=== PATIENT | female | born 1945 | race Caucasian/White ===

== ENCOUNTER 2016-06-30 11:39 | Emergency (ER) | payer MEDICARE, OTHER ==
[2016-06-30 11:52] VITALS: BP 154/67
--- NOTE | 2016-06-30 12:22 | UC ---
IChris,Jayna, scribed for Guzman Mary MD on 06/30/16 at 1221 . Respiratory Complaint HPI - HPI Summary HPI Summary: This 71 y/o female presents to [facility] with chief complaint of persistent cough since a week ago. She also reports post nasal drip, increased tiredness, sinus discomfort/congestion, and acute on chronic SOB. PMHx is significant for COPD with home oxygen use and chronic bronchitis. She is a former smoker. FHx is positive for DM. Pt is allergic to cefaclor. - History of Current Complaint Chief Complaint: UCRespiratory Stated Complaint: COUGH SINUS ISSUE SOB ON O2 COPD Time Seen by Provider: 06/30/16 12:03 Hx Obtained From: Patient Onset/Duration: Gradual Onset Severity Initially: Mild Severity Currently: Moderate Character: Cough: Productive Aggravating Factors: Nothing Alleviating Factors: Nothing Associated Signs And Symptoms: Positive: Dyspnea, URI - Allergies/Home Medications Allergies/Adverse Reactions: Allergies Allergy/AdvReac Type Severity Reaction Status Date / Time Cefaclor [From [facility]] Allergy Severe Hives Verified 06/30/16 11:52 PMH/Surg Hx/FS Hx/Imm Hx Endocrine History Of: Denies: Diabetes Cardiovascular History Of: Denies: Hypertension, Pacemaker/ICD Respiratory History Of: Reports: COPD, Asthma, Bronchitis GI/ History Of: Denies: Renal Disease Cancer History Of: Denies: Breast Cancer - Surgical History Surgical History: Yes Surgery Procedure, Year, and Place: CHOLECYSTECTOMY, X3. bx left mormon artery WITH CLIP - Family History Known Family History: Positive: Diabetes - Social History Alcohol Use: Rare Substance Use Type: None Smoking Status (MU): Former Smoker Type: Cigarettes Amount Used/How Often: 1 ppd Length of Time of Smoking/Using Tobacco: 45 yrs Have You Smoked in the Last Year: No When Did the Patient Quit Smoking/Using Tobacco: 2011 - Immunization History Most Recent Influenza Vaccination: 05/25 Review of Systems Constitutional: Negative Skin: Negative ENT: Other - post nasal drip Respiratory: Shortness Of Breath - acute on chronic, Cough Cardiovascular: Negative Gastrointestinal: Negative Genitourinary: Negative Motor: Negative Neurovascular: Negative Musculoskeletal: Negative Neurological: Negative Psychological: Negative All Other Systems Reviewed And Are Negative: Yes Physical Exam Triage Information Reviewed: Yes Appearance: Ill-Appearing, Obese Vital Signs: Initial Vital Signs Temp 99 F 06/30/16 11:45 Pulse 70 06/30/16 11:45 Resp 18 06/30/16 11:45 BP 154/67 06/30/16 11:45 Pulse Ox 96 06/30/16 11:45 Vital Signs Reviewed: Yes Eye Exam: Normal Eyes: Positive: Conjunctiva Clear ENT: Positive: Normal ENT inspection, Hearing grossly normal, Pharynx normal, Nasal congestion, Nasal drainage, TMs normal Neck exam: Normal Neck: Positive: Supple, Nontender, No Lymphadenopathy Respiratory: Positive: Chest non-tender, Respiratory distress, Decreased breath sounds. Negative: Crackles, Rhonchi, Stridor, Wheezing Cardiovascular: Positive: RRR, No Murmur, Pulses Normal Skin Exam: Normal UC Diagnostic Evaluation - Laboratory O2 Sat by Pulse Oximetry: 96 Respiratory Course/Dx - Differential Dx/Diagnosis Provider Diagnoses: bronchitis. copd Discharge - Discharge Plan Condition: Stable Disposition: HOME Prescriptions: DOXYcycline CAP(*) [DOXYcycline 100MG CAP(*)] 100 mg PO BID #20 cap predniSONE TAB* [Deltasone TAB*] 40 mg PO DAILY #10 tab Patient Education Materials: Acute Bronchitis (ED) Referrals: Tesha Dodson MD [Primary Care Provider] - 5 Days The documentation as recorded by the Chris fernandez Soohyun accurately reflects the service I personally performed and the decisions made by Tyra davis Hossein, MD.
== END 2016-06-30 12:15 | disposition home or self-care (01) ==
LOC: UCEAST 11:39
DX: J44.0 Chronic obstructive pulmonary disease with (acute) lower respiratory infection (principal); J20.9 Acute bronchitis, unspecified; J45.909 Unspecified asthma, uncomplicated; Z87.891 Personal history of nicotine dependence; Z99.81 Dependence on supplemental oxygen
CPT/HCPCS: 99212; G0463

== ENCOUNTER 2016-07-04 07:50 | Emergency (ER) | payer MEDICARE, OTHER ==
[2016-07-04 08:00] VITALS: BP 140/63
--- NOTE | 2016-07-04 08:15 | UC ---
Complaint Female HPI - HPI Summary HPI Summary: complaint of pain with urination that started 2 days ago increase in urgency and frequency has had some incontinence several times denies fever , abdominal pain, back pain drinking cranberry juice and fluids recently dx with bronchitis 06/30/16 and started on doxycycline and predisone and she feels that her breathing is better - History Of Current Complaint Chief Complaint: UCGU Stated Complaint: UTI COMPLAINT Time Seen by Provider: 07/04/16 08:06 Hx Obtained From: Patient Onset/Duration: Gradual Onset, Lasting Days, Still Present - Allergies/Home Medications Allergies/Adverse Reactions: Allergies Allergy/AdvReac Type Severity Reaction Status Date / Time Cefaclor [From [facility]] Allergy Severe Hives Verified 07/04/16 08:01 PMH/Surg Hx/FS Hx/Imm Hx Previously Healthy: No - COPD excerbation Endocrine History Of: Denies: Diabetes Cardiovascular History Of: Denies: Hypertension, Pacemaker/ICD Respiratory History Of: Reports: COPD, Asthma, Bronchitis GI/ History Of: Denies: Renal Disease Cancer History Of: Denies: Breast Cancer - Surgical History Surgical History: Yes Surgery Procedure, Year, and Place: CHOLECYSTECTOMY, X3. bx left faith artery WITH CLIP - Family History Known Family History: Positive: None, Diabetes Negative: Cardiac Disease, Hypertension - Social History Occupation: Retired Lives: With Family Alcohol Use: Rare Substance Use Type: None Smoking Status (MU): Former Smoker Type: Cigarettes Amount Used/How Often: 1 ppd Length of Time of Smoking/Using Tobacco: 45 yrs Have You Smoked in the Last Year: No When Did the Patient Quit Smoking/Using Tobacco: 2011 - Immunization History Most Recent Influenza Vaccination: 05/25 Review of Systems Constitutional: Negative Skin: Negative Eyes: Negative ENT: Negative Respiratory: Shortness Of Breath - on exertion Cardiovascular: Negative Gastrointestinal: Negative Genitourinary: Frequency, Urgency Motor: Negative Neurovascular: Negative Musculoskeletal: Negative Neurological: Negative Psychological: Negative All Other Systems Reviewed And Are Negative: Yes Physical Exam Triage Information Reviewed: Yes Appearance: No Pain Distress, Well-Nourished, Obese Vital Signs: Initial Vital Signs Temp 97.9 F 07/04/16 07:56 Pulse 63 07/04/16 07:56 Resp 22 07/04/16 07:56 BP 140/63 07/04/16 07:56 Pulse Ox 97 07/04/16 07:56 Vital Signs Reviewed: Yes Eyes: Positive: Conjunctiva Clear ENT: Positive: Normal ENT inspection Neck: Positive: Supple, No Lymphadenopathy Respiratory: Positive: Decreased breath sounds - in the bases ,, Wheezing - wheezing in other [place] Cardiovascular: Positive: RRR, No Murmur, Pulses Normal Abdomen Description: Positive: Nontender, Soft, Distended - softly. Negative: CVA Tenderness (R), CVA Tenderness (L) Bowel Sounds: Positive: Present Musculoskeletal: Positive: No Edema Neurological: Positive: Alert Psychological Exam: Normal Skin Exam: Normal Complaint Female Dx - Course Course Of Treatment: exam completed. currently on doxycycline for COPD exacerbation and condition is stable. will start pyridium and change antibiotic to levaquin fortreatment of COPD exacerbation and UTI. black box warning- pt has been on levaquin many times in the past will rx d/t need for treatment for both conditions. followup with PCP - Differential Dx/Diagnosis Differential Diagnosis/HQI/PQRI: Ureteral Stone, Urinary Tract Infection Provider Diagnoses: UTI, Chronic bronchitis Discharge - Discharge Plan Condition: Stable Disposition: HOME Prescriptions: Levofloxacin TAB* [Levaquin TAB*] 750 mg PO DAILY #5 tab Phenazopyridine TAB* [Pyridium TAB*] 100 mg PO TID #9 tab Patient Education Materials: Chronic Bronchitis (ED), Urinary Tract Infection in Women (ED) Referrals: Tesha Dodson MD [Primary Care Provider] - Additional Instructions: Please stop doxycylcine and start levaquin as directed. take pyridium as needed Increase fluids and rest Take acetaminophen for fever or pain Please review your discharge instructions. If your symptoms do not improve please call your primary care provider or return to urgent care.
== END 2016-07-04 08:51 | disposition home or self-care (01) ==
LOC: UCEAST 07:50
DX: N39.0 Urinary tract infection, site not specified (principal); J42 Unspecified chronic bronchitis; E66.9 Obesity, unspecified; Z87.891 Personal history of nicotine dependence; Z88.1 Allergy status to other antibiotic agents
CPT/HCPCS: 81002; 87086; 99212; G0463

== ENCOUNTER 2016-10-07 09:18 | Emergency (ER) | payer MEDICARE, OTHER ==
[2016-10-07 09:39] VITALS: BP 121/48
--- NOTE | 2016-10-07 11:43 | UC ---
Tal Whitfield Adam, scribed for Cinthia Ellis DO on 10/07/16 at 0936 . Abdominal Pain Female HPI - HPI Summary HPI Summary: Pt is a 71 year old female presenting with intermittent abdominal pain that set on yesterday in the early afternoon. She states that the pain is located in her suprapubic region and she is also having separate sharp pain in her RLQ. She has a hx of diverticulitis which usually causes pain in her suprapubic region at baseline that is exacerbated by having BM's. She states that the current pain in her suprapubic region is similar to the usual pain from her diverticulitis but the sharp RLQ pain is new and intermittantly more severe. The pain has been intermittent. It was 10/10 at its worst. She reports that it averages at a 4-5/10. She denies any fever, chills, blood in stool, new urinary symptoms, MURRAY, rashes. PMHx of chronic bronchitis, emphysema. She denies any other PMHx. She is a former smoker. FMHx of DM (father and brother). - History of Current Complaint Chief Complaint: UCAbdominalPain Stated Complaint: LOWER ABD PAIN PT ON O2 Time Seen by Provider: 10/07/16 09:33 Hx Obtained From: Patient Onset/Duration: Gradual Onset, Lasting Days, Still Present Timing: Intermittent Episodes Lasting: - Minutes - hours Severity Initially: Moderate Severity Currently: None Pain Scale Used: 0-10 Numeric Location: Discrete At: RLQ, Suprapubic Radiates: No Character: Sharp Aggravating Factor(s): Other: - BM's Alleviating Factor(s): Nothing Associated Signs and Symptoms: Positive: Negative, Diarrhea - intermittant at baseline. Negative: Fever, Blood in Stool, Urinary Symptoms - no new ones, Nausea, Vomiting Allergies/Adverse Reactions: Allergies Allergy/AdvReac Type Severity Reaction Status Date / Time Cefaclor [From [facility]] Allergy Severe Hives Verified 07/04/16 08:01 Home Medications: Home Medications Escitalopram (NF) [Lexapro (NF)] 10 mg PO DAILY 10/07/16 [History Confirmed ] PMH/Surg Hx/FS Hx/Imm Hx Endocrine History Of: Denies: Diabetes Cardiovascular History Of: Denies: Hypertension, Pacemaker/ICD Respiratory History Of: Reports: COPD, Asthma, Bronchitis GI/ History Of: Reports: Diverticulitis Denies: Renal Disease Cancer History Of: Denies: Breast Cancer - Surgical History Surgical History: Yes Surgery Procedure, Year, and Place: CHOLECYSTECTOMY, X3. bx left protestant artery WITH CLIP - Family History Known Family History: Positive: Diabetes - Father and brother Negative: Cardiac Disease, Hypertension - Social History Occupation: Unemployed - Homemaker Lives: With Family - Alcohol Use: Rare Substance Use Type: None Smoking Status (MU): Former Smoker Type: Cigarettes Amount Used/How Often: 1 ppd Length of Time of Smoking/Using Tobacco: 45 yrs Have You Smoked in the Last Year: No When Did the Patient Quit Smoking/Using Tobacco: 2011 - Immunization History Most Recent Influenza Vaccination: 05/25 Review of Systems Constitutional: Negative, Other - Hot flash Respiratory: Shortness Of Breath - baseline - copd Cardiovascular: Negative Gastrointestinal: Abdominal Pain Neurological: Negative All Other Systems Reviewed And Are Negative: Yes Physical Exam Triage Information Reviewed: Yes Appearance: Well-Appearing, No Pain Distress, Obese, Other: - on continuous o2 Vital Signs: Initial Vital Signs Temp 98.2 F 10/07/16 09:31 Pulse 80 10/07/16 09:31 Resp 20 10/07/16 09:31 BP 121/48 10/07/16 09:31 Pulse Ox 96 10/07/16 09:31 Vital Signs Reviewed: Yes Eyes: Positive: Conjunctiva Clear. Negative: Discharge ENT: Positive: Hearing grossly normal. Negative: Muffled/hoarse voice Neck exam: Normal Neck: Positive: Supple Respiratory: Positive: Chest non-tender, Lungs clear, Normal breath sounds, No respiratory distress Cardiovascular: Positive: RRR, No Murmur Abdomen Description: Positive: Soft, McBur[place]'s Point Tenderness. Negative: Nontender, CVA Tenderness (R), CVA Tenderness (L), Distended Bowel Sounds: Positive: Present Musculoskeletal Exam: Normal Neurological: Positive: Alert, Muscle Tone Normal Psychological Exam: Normal Psychological: Positive: Age Appropriate Behavior Skin Exam: Normal Skin: Positive: Other - Warm, dry, normal color Abd Pain Female Course/Dx - Differential Dx/Diagnosis Differential Diagnosis: Appendicitis, Diverticulitis, Irritable Bowel Syndrome, Urinary Tract Infection Provider Diagnoses: abd pain - r/o appy Discharge - Discharge Plan Condition: Stable Disposition: TRANS HIGHER LVL OF CARE FAC Referrals: Tesha Dodson MD [Primary Care Provider] - Lab Results - Lab Results Lab Results: 10/07/16 09:35 POC Urine Color Yellow POC Urine Clarity Clear POC Urine pH 7.0 POC Ur Specif [place] 1.010 POC Urine Protein Negative POC Ur Glucose (UA) Negative POC Urine Ketones Negative POC Urine Blood Trace-intact H POC Urine Nitrite Negative POC Urine Bilirubin Negative POC Urine Urobilinogen 0.2 POC U Leukocyte Esteras Negative The documentation as recorded by the Tal fernandez Adam accurately reflects the service I personally performed and the decisions made by , Cinthia Ellis DO.
== END 2016-10-07 11:06 | disposition short-term general hospital (02) ==
LOC: UCEAST 09:18
DX: R10.31 Right lower quadrant pain (principal); Z90.49 Acquired absence of other specified parts of digestive tract; Z88.1 Allergy status to other antibiotic agents; Z87.891 Personal history of nicotine dependence
CPT/HCPCS: 81003; 99212; G0463

== ENCOUNTER 2016-10-07 12:21 | Emergency (ER) | payer MEDICARE, OTHER ==
[2016-10-07 12:25] VITALS: BP 146/59
[2016-10-07] MEDS ORDERED: NS 0.9% 1000 ML* 2,000 ML IV ONE (13:30)
[2016-10-07 13:50] LABS: Hematocrit 42 % (35-47); Hemoglobin 13.6 g/dl (12.0-16.0); Mean Corpuscular HGB Conc 33 g/dl (31-36); Mean Corpuscular Hemoglobin 28 pg (27-31); Mean Corpuscular Volume 86 fL (80-97); Mean Platelet Volume 8 um3 (7.4-10.4); Red Blood Count 4.81 10^6/ul (4.0-5.4); Red Cell Distribution Width 14 % (10.5-15); White Blood Count 8.5 10^3/ul (3.5-10.8)
[2016-10-07 14:01] LABS: Albumin 3.8 g/dL (3.2-5.2); BUN/Creatinine Ratio 21.7 (8-20); C Reactive Protein 22.62 mg/L (< 5.00); Calcium 9.5 mg/dL (8.6-10.3); EGFR African American 108.5 (>60); EGFR Non-African American 84.4 (>60); Globulin 3.6 g/dL (2-4); Potassium 4.1 mmol/L (3.5-5.0); Total Bilirubin 0.6 mg/dL (0.2-1.0); Total Protein 7.4 g/dL (6.4-8.9)
[2016-10-07] MEDS ORDERED: Iohexol 300* (CONTRAST) 10 ML SDV IV ONE (14:45)
--- NOTE | 2016-10-07 16:05 | RAD ---
INDICATION: RIGHT lower quadrant and transverse colon region pain. History of diverticulitis. Post cholecystectomy. COMPARISON: April 28, 2016 CT. TECHNIQUE: Multidetector CT images were obtained from the lung bases to the ischial tuberosities with 129 mL Omnipaque 300 IV and oral contrast. Multiplanar reformation. REPORT: Mild cardiomegaly. Mild bibasilar subsegmental atelectasis. Decreased density of the liver consistent with fatty infiltration. No focal hepatic lesions or biliary dilatation. The gallbladder is not visualized. Unremarkable pancreas and spleen. Unremarkable upper GI, small bowel, and diminutive retrocecal appendix. Severe diverticulosis of the sigmoid colon with associated mild perienteric inflammatory stranding at the distal segment. Small volume of nonloculated free pelvic fluid. No perienteric abscess or extra enteric gas evident. Normal adrenal glands. Unremarkable kidneys with symmetric nephrograms and pyelograms. Unremarkable ureters and largely decompressed urinary bladder as well as the anteverted uterus and adnexal regions. Negative for lymphadenopathy. Normal diameter abdominal aorta and iliac arteries with calcific plaque. Physiologic distention of the IVC. Negative for fracture or suspicious osseous lesion of the lumbar sacral spine, pelvis, or proximal femurs. IMPRESSION: Mild acute sigmoid diverticulitis. No perienteric abscess or resulting bowel obstruction. The magnitude of perienteric inflammatory change is similar to the April 28, 2016 exam although it appears to involve a more proximal segment of the sigmoid colon compared with the prior exam.
[2016-10-07 16:07] LABS: Urine Bacteria 1+ (Absent); Urine Bilirubin Negative (Negative); Urine Glucose Negative (Negative); Urine Nitrite Negative (Negative)
[2016-10-07] MEDS ORDERED: Ciprofloxacin TAB* 500 MG PO ONE ×2 (16:36→16:38)
[2016-10-07] MEDS ORDERED: metroNIDAZOLE TAB* 250 MG PO ONE ×2 (16:38→16:39)
--- NOTE | 2016-10-07 20:53 | ED ---
I, Oh,Soohlilly, scribed for Richard Leal MD on 10/07/16 at 1353 . Abdominal Pain/Female - HPI Summary HPI Summary: This 71 y/o female presents [facility] ED from [facility] for sudden onset of sharp RLQ/right suprapubic pain since last evening. Pt drove herself from convenient care, and states that bumpy ride did make pain mildly worse. Negative dysuria, increased urinary frequency, nausea, or fever/chills. Last BM yesterday morning. PMHx includes diverticulitis, COPD, and UTI. Last diverticulitis flare up was 1.5 months ago and was treate with abx. PSHx includes cholecystectomy, 3x C-sections, and tubal ligation. No hysterectomy or oophorectomy. Unknown if she still has appendix. - History of Current Complaint Chief Complaint: EDAbdPain Stated Complaint: LOWER ABD PAIN COMMING FROM [facility] Hx Obtained From: Patient, Medical Records ?: No Onset/Duration: Gradual Onset Pain Intensity: 0 Pain Scale Used: 0-10 Numeric Location: Discrete At: RLQ, Suprapubic - right Radiates: No Character: Sharp Aggravating Factor(s): Other: - bumpy car ride Alleviating Factor(s): Nothing Associated Signs and Symptoms: Negative: Fever, Constipation, Nausea, Diarrhea Allergies/Adverse Reactions: Allergies Allergy/AdvReac Type Severity Reaction Status Date / Time Cefaclor [From [facility]] Allergy Severe Hives Verified 07/04/16 08:01 PMH/Surg Hx/FS Hx/Imm Hx Endocrine/Hematology History: Denies: Hx Diabetes Cardiovascular History: Denies: Hx Hypertension, Hx Pacemaker/ICD Respiratory History: Reports: Hx Asthma, Hx Chronic Obstructive Pulmonary Disease (COPD) History: Denies: Hx Renal Disease Musculoskeletal History: Denies: Hx Osteoporosis Sensory History: Denies: Hx Hearing Aid Psychiatric History: Denies: Hx Panic Disorder - Cancer History Hx Chemotherapy: No Hx Radiation Therapy: No - Surgical History Surgery Procedure, Year, and Place: CHOLECYSTECTOMY, X3. bx left mandaeism artery WITH CLIP Infectious Disease History: No Infectious Disease History: Denies: Hx Clostridium Difficile, Hx Hepatitis, Hx Human Immunodeficiency Virus (HIV), Hx of Known/Suspected MRSA, Hx Shingles, Hx Tuberculosis, Hx Known/ Suspected VRE, Hx Known/Suspected VRSA, History Other Infectious Disease, Traveled Outside the [place] in Last 30 Days - Family History Known Family History: Positive: Diabetes - Father and brother Negative: Cardiac Disease, Hypertension - Social History Alcohol Use: Rare Substance Use Type: Reports: None Smoking Status (MU): Former Smoker Type: Cigarettes Amount Used/How Often: 1 ppd Length of Time of Smoking/Using Tobacco: 45 yrs Have You Smoked in the Last Year: No Review of Systems Negative: Fever Positive: Abdominal Pain. Negative: Diarrhea, Nausea Negative: dysuria, frequency All Other Systems Reviewed And Are Negative: Yes Physical Exam - Summary Physical Exam Summary: The patient is well-nourished in no acute distress and in no acute pain. The skin is warm and dry and skin color reflects adequate perfusion. Non diaphoretic. HEENT: The head is normocephalic and atraumatic. The pupils are equal and reactive. The conjunctivae are clear and without drainage. Nares are patent and without drainage. Mouth reveals moist mucous membranes and the throat is without erythema and exudate. The external ears are intact. The ear canals are patent and without drainage. The tympanic membranes are intact. Neck is supple with full range of motion and non-tender. There are no carotid bruits. There is no neck vein distension. Respiratory: Chest is non-tender. Lungs are clear to auscultation and breath sounds are symmetrical and equal. Breath sound diminished. Cardiovascular: Hear is regular rate and rhythm. There is no murmur or rub auscultated. There is no peripheral edema and pulses are symmetrical and equal. Abdomen: Mild tenderness at RUQ and mid abd over traverse colon. Negative tenderness at RLQ. The abdomen is obese, soft. There are normal bowel sounds heard in all four quadrants and there is no organomegaly palpated. Musculoskeletal: There is no back pain noted. Extremities are non-tender with full range of motion. There is good capillary refill. There is no peripheral edema or calf tenderness elicited. Neurological: Patient is alert and oriented to person, place and time. The patient has symmetrical motor strength in all four extremities. Cranial nerves are grossly intact. Deep tendon reflexes are symmetrical and equal in all four extremities. Psychiatric: The patient has an appropriate affect and does not exhibit any anxiety or depression. Triage Information Reviewed: Yes Vital Signs On Initial Exam: Initial Vitals Temp Pulse Resp BP 98.6 F 81 20 146/59 04/30/17 12:23 10/07/16 12:23 10/07/16 12:23 10/07/16 12:23 Vital Signs Reviewed: Yes Diagnostics - Vital Signs Vital Signs Temp Pulse Resp BP Pulse Ox 10/07/16 12:25 98.6 F 76 20 146/59 95 10/07/16 12:23 98.6 F 81 20 146/59 - Laboratory Lab Results: Lab Results 10/07/16 10/07/16 10/07/16 Range/Units 13:10 13:10 13:10 WBC 8.5 (3.5-10.8) 10^3/ul RBC 4.81 (4.0-5.4) 10^6/ul Hgb 13.6 (12.0-16.0) g/dl Hct 42 (35-47) % MCV 86 (80-97) fL MCH 28 (27-31) pg MCHC 33 (31-36) g/dl RDW 14 (10.5-15) % Plt Count 190 (150-450) 10^3/ul MPV 8 (7.4-10.4) um3 Neut % (Auto) 66.4 (38-83) % Lymph % (Auto) 23.4 L (25-47) % [place] % (Auto) 7.6 (1-9) % Eos % (Auto) 2.0 (0-6) % Baso % (Auto) 0.6 (0-2) % Absolute Neuts (auto) 5.7 (1.5-7.7) 10^3/ul Absolute Lymphs (auto) 2.0 (1.0-4.8) 10^3/ul Absolute Monos (auto) 0.7 (0-0.8) 10^3/ul Absolute Eos (auto) 0.2 (0-0.6) 10^3/ul Absolute Basos (auto) 0.1 (0-0.2) 10^3/ul Absolute Nucleated RBC 0.01 10^3/ul Nucleated RBC % 0.1 Sodium 137 (133-145) mmol/L Potassium 4.1 (3.5-5.0) mmol/L Chloride 98 L (101-111) mmol/L Carbon Dioxide 31 (22-32) mmol/L Anion Gap 8 (2-11) mmol/L BUN 15 (6-24) mg/dL Creatinine 0.69 (0.51-0.95) mg/dL Est GFR ( Amer) 108.5 (>60) Est GFR (Non-Af Amer) 84.4 (>60) BUN/Creatinine Ratio 21.7 H (8-20) Glucose 98 (70-100) mg/dL Lactic Acid 0.9 (0.5-2.0) mmol/L Calcium 9.5 (8.6-10.3) mg/dL Total Bilirubin 0.60 (0.2-1.0) mg/dL AST 12 L (13-39) U/L ALT 14 (7-52) U/L Alkaline Phosphatase 73 (34-104) U/L C-Reactive Protein 22.62 H (< 5.00) mg/L Total Protein 7.4 (6.4-8.9) g/dL Albumin 3.8 (3.2-5.2) g/dL Globulin 3.6 (2-4) g/dL Albumin/Globulin Ratio 1.1 (1-3) Lipase 19 (11.0-82.0) U/L Urine Color Urine Appearance Urine pH (5-9) Ur Specific [place] (1.010-1.030) Urine Protein (Negative) Urine Ketones (Negative) Urine Blood (Negative) Urine Nitrate (Negative) Urine Bilirubin (Negative) Urine Urobilinogen (Negative) Ur Leukocyte Esterase (Negative) Urine WBC (Auto) (Absent) Urine RBC (Auto) (Absent) Ur Squamous Epith Cells (Absent) Urine Bacteria (Absent) Urine Glucose (Negative) 10/07/16 Range/Units 15:55 WBC (3.5-10.8) 10^3/ul RBC (4.0-5.4) 10^6/ul Hgb (12.0-16.0) g/dl Hct (35-47) % MCV (80-97) fL MCH (27-31) pg MCHC (31-36) g/dl RDW (10.5-15) % Plt Count (150-450) 10^3/ul MPV (7.4-10.4) um3 Neut % (Auto) (38-83) % Lymph % (Auto) (25-47) % [place] % (Auto) (1-9) % Eos % (Auto) (0-6) % Baso % (Auto) (0-2) % Absolute Neuts (auto) (1.5-7.7) 10^3/ul Absolute Lymphs (auto) (1.0-4.8) 10^3/ul Absolute Monos (auto) (0-0.8) 10^3/ul Absolute Eos (auto) (0-0.6) 10^3/ul Absolute Basos (auto) (0-0.2) 10^3/ul Absolute Nucleated RBC 10^3/ul Nucleated RBC % Sodium (133-145) mmol/L Potassium (3.5-5.0) mmol/L Chloride (101-111) mmol/L Carbon Dioxide (22-32) mmol/L Anion Gap (2-11) mmol/L BUN (6-24) mg/dL Creatinine (0.51-0.95) mg/dL Est GFR ( Amer) (>60) Est GFR (Non-Af Amer) (>60) BUN/Creatinine Ratio (8-20) Glucose (70-100) mg/dL Lactic Acid (0.5-2.0) mmol/L Calcium (8.6-10.3) mg/dL Total Bilirubin (0.2-1.0) mg/dL AST (13-39) U/L ALT (7-52) U/L Alkaline Phosphatase (34-104) U/L C-Reactive Protein (< 5.00) mg/L Total Protein (6.4-8.9) g/dL Albumin (3.2-5.2) g/dL Globulin (2-4) g/dL Albumin/Globulin Ratio (1-3) Lipase (11.0-82.0) U/L Urine Color Straw Urine Appearance Clear Urine pH 7.0 (5-9) Ur Specific [place] 1.004 L (1.010-1.030) Urine Protein Negative (Negative) Urine Ketones Negative (Negative) Urine Blood Negative (Negative) Urine Nitrate Negative (Negative) Urine Bilirubin Negative (Negative) Urine Urobilinogen Negative (Negative) Ur Leukocyte Esterase Trace H (Negative) Urine WBC (Auto) Trace(0-5/hpf) (Absent) Urine RBC (Auto) Absent (Absent) Ur Squamous Epith Cells Present H (Absent) Urine Bacteria 1+ H (Absent) Urine Glucose Negative (Negative) Result Diagrams: 10/07/16 13:10 10/07/16 13:10 Lab Statement: Any lab studies that have been ordered have been reviewed, and results considered in the medical decision making process. - CT Ab/P CT Interpretation: Positive (See Comments) - Mild acute sigmoid diverticulitis. No perienteric abscess or resulting bowel obstruction. The magnitude of perienteric inflammatory change is similar to the April 28, 2016 exam although it appears to involve a more proximal segment of the sigmoid colon compared with the prior exam. CT Interpretation Completed By: Radiologist Re-Evaluation - Re-Evaluation First Eval Re-Evaluation Time: 16:31 Abdominal Pain Fem Course/Dx - Course Course Of Treatment: This 71 y/o female presents to ED with chief complaint of sharp, acute RLQ/right suprapubic abd pain since last evening. Upon examination pt was noted with transverse colon but not tender at RLQ. CT Ab/P indicates mild acute sigmoid diverticulitis without abscess. Pt was discharged with cipro , flagyl, and f/u plan with Dr. Dodson and recommendation for colonscopy. Pt requested rx for diflucan. Pt is prone to yeast infection when she is put on abx treatment. - Diagnoses Differential Diagnosis: Positive: Appendicitis, Bowel Obstruction, Constipation , Diverticulitis, Urinary Tract Infection Provider Diagnoses: Diverticulitis Discharge - Discharge Plan Condition: Stable Disposition: HOME Prescriptions: Ciprofloxacin TAB* [Cipro 500 MG TAB*] 500 mg PO BID #20 tab Fluconazole [Diflucan 150 MG (NF)] 150 mg PO ONCE #1 tab Metronidazole [Flagyl 500 MG TAB] 500 mg PO QID #40 tab Patient Education Materials: Abdominal Pain (ED), Ciprofloxacin (By mouth), Metronidazole (By mouth), Diverticulitis (ED) Referrals: Tesha Dodson MD [Primary Care Provider] - 2 Days Additional Instructions: Consider colonoscopy. The documentation as recorded by the Chris fernandez Soohyun accurately reflects the service I personally performed and the decisions made by , Richard Leal MD.
== END 2016-10-07 17:10 | disposition home or self-care (01) ==
LOC: ED 12:21
DX: K57.92 Diverticulitis of intestine, part unspecified, without perforation or abscess without bleeding (principal); R10.9 Unspecified abdominal pain; Z87.891 Personal history of nicotine dependence
CPT/HCPCS: 36415; 74177; 80053; 81003; 81015; 83605; 83690; 85025; 86140; 87086; 99283; A9270-GY; Q9967

== ENCOUNTER 2016-10-08 04:18 | Observation (INO) | payer MEDICARE, OTHER ==
[2016-10-08 04:49] LABS: Hematocrit 42 % (35-47); Hemoglobin 13.3 g/dl (12.0-16.0); Mean Corpuscular HGB Conc 32 g/dl (31-36); Mean Corpuscular Hemoglobin 28 pg (27-31); Mean Corpuscular Volume 87 fL (80-97); Mean Platelet Volume 8 um3 (7.4-10.4); Red Blood Count 4.78 10^6/ul (4.0-5.4); Red Cell Distribution Width 14 % (10.5-15); White Blood Count 14.2 10^3/ul (3.5-10.8)
[2016-10-08 04:50] LABS: Add Diff/Slide Review? Slide Review Added; Comments Flag Yes
[2016-10-08] MEDS ORDERED: Levofloxacin 750 MG IVPREMIX(* 750 MG/150 ML BAG IVPB ONE (04:51)
[2016-10-08 04:58] LABS: ALT 18 U/L (7-52); Albumin 3.8 g/dL (3.2-5.2); Alkaline Phosphatase 72 U/L (34-104); BUN/Creatinine Ratio 19.8 (8-20); Blood Urea Nitrogen 16 mg/dL (6-24); C Reactive Protein 75.41 mg/L (< 5.00); CO2 Carbon Dioxide 30 mmol/L (22-32); Calcium 9.3 mg/dL (8.6-10.3); Chloride 100 mmol/L (101-111); Creatine Kinase 61 U/L (10-223); EGFR African American 90.2 (>60); EGFR Non-African American 70.1 (>60); Globulin 3.7 g/dL (2-4); Glucose 144 mg/dL (70-100); Lipase 11 U/L (11.0-82.0); Sodium 136 mmol/L (133-145); Total Protein 7.5 g/dL (6.4-8.9)
[2016-10-08 05:13] LABS: TSH (Thyroid Stimulating Horm) 1.83 mcIU/mL (0.34-5.60)
[2016-10-08] MEDS ORDERED: Iohexol 350* (CONTRAST) 500 ML MDV IV ONE (06:11)
[2016-10-08] MEDS ORDERED: Acetaminophen TAB* 325 MG PO ONE (06:23)
[2016-10-08] MEDS ORDERED: Al Hydrox/Mg Hydrox/Simet LIQ* 30 ML UDC PO ONE (07:37)
--- NOTE | 2016-10-08 08:23 | ED ---
Amandeep Whitfield Alok, scribed for Aj Torres MD on 10/08/16 at 0441 . Shortness of Breath - HPI Summary HPI Summary: 71 y/o female presents to the ED for SOB over the past few days gradually worsening throughout the week. This SOB was especially bad at 1900 today prompting her visit to the ED. Pt was last dx with diverticulitis recently and is on antibiotics for it. Pt also has a cough. Pt denies fever, CP, or edema. PMHx includes COPD. Pt was given Solumedrol IV en route to ED by EMS. Pt states her condition has improved since starting bipap treatment at ED. - History of Current Complaint Chief Complaint: EDShortnessOfBreath Time Seen by Provider: 10/08/16 04:28 Hx Obtained From: Patient Onset/Duration: Gradual Onset, Lasting Days, Still Present Timing: Constant Current Severity: Moderate Dyspnea At: Rest Aggrevating Factors: Nothing Alleviating Factors: Oxygen - Bipap at ED Associated Signs & Symptoms: Cough (Nonproductive) - Allergy/Home Medications Allergies/Adverse Reactions: Allergies Allergy/AdvReac Type Severity Reaction Status Date / Time [facility] [[facility] Allergy Severe Hives Verified 10/08/16 06:16 Home Medications: Home Medications predniSONE TAB* [Deltasone TAB*] 40 mg PO DAILY PRN 10/08/16 [History Confirmed 10/08/16] PMH/Surg Hx/FS Hx/Imm Hx Endocrine/Hematology History: Denies: Hx Diabetes Cardiovascular History: Denies: Hx Hypertension, Hx Pacemaker/ICD Respiratory History: Reports: Hx Asthma, Hx Chronic Obstructive Pulmonary Disease (COPD) History: Denies: Hx Renal Disease Musculoskeletal History: Denies: Hx Osteoporosis Sensory History: Denies: Hx Hearing Aid Psychiatric History: Denies: Hx Panic Disorder - Cancer History Hx Chemotherapy: No Hx Radiation Therapy: No - Surgical History Surgery Procedure, Year, and Place: CHOLECYSTECTOMY, X3. bx left [place] artery WITH CLIP Infectious Disease History: No Infectious Disease History: Denies: Hx Clostridium Difficile, Hx Hepatitis, Hx Human Immunodeficiency Virus (HIV), Hx of Known/Suspected MRSA, Hx Shingles, Hx Tuberculosis, Hx Known/ Suspected VRE, Hx Known/Suspected VRSA, History Other Infectious Disease, Traveled Outside the [place] in Last 30 Days - Family History Known Family History: Positive: Diabetes - Father and brother Negative: Cardiac Disease, Hypertension - Social History Occupation: Unemployed Lives: With Family Alcohol Use: Rare Substance Use Type: Reports: None Smoking Status (MU): Former Smoker Type: Cigarettes Amount Used/How Often: 1 ppd Length of Time of Smoking/Using Tobacco: 45 yrs Have You Smoked in the Last Year: No Review of Systems Negative: Fever Negative: Chest Pain Positive: Shortness Of Breath, Cough Negative: Abdominal Pain Negative: Edema All Other Systems Reviewed And Are Negative: Yes Physical Exam Triage Information Reviewed: Yes Vital Signs On Initial Exam: Initial Vitals Temp Pulse Resp BP Pulse Ox 101.6 F 68 28 150/67 98 10/08/16 04:26 10/08/16 04:26 10/08/16 04:10/08/16 04:10/08/16 04:26 Vital Signs Reviewed: Yes Appearance: Positive: Well-Appearing, No Pain Distress Skin: Positive: Warm, Skin Color Reflects Adequate Perfusion, Dry Head/Face: Positive: Normal Head/Face Inspection Eyes: Positive: EOMI, ANDREW ENT: Positive: Normal ENT inspection Neck: Positive: Supple, Nontender Respiratory/Lung Sounds: Positive: Other - Pt on Bipap shows good air movement and no obvious respiratory distress. Cardiovascular: Positive: RRR Abdomen Description: Positive: Nontender, Soft Bowel Sounds: Positive: Present Musculoskeletal: Positive: Normal, Strength/ROM Intact, Other - No pedal edema Neurological: Positive: Normal, Sensory/Motor Intact, Alert, Oriented to Person Place, Time Psychiatric: Positive: Affect/Mood Appropriate Diagnostics - Vital Signs Vital Signs Temp Pulse Resp BP Pulse Ox 10/08/16 04:26 101.6 F 68 28 150/67 98 - Laboratory Lab Results: Lab Results 10/08/16 10/08/16 10/08/16 Range/Units 04:25 04:25 04:25 WBC 14.2 H (3.5-10.8) 10^3/ul RBC 4.78 (4.0-5.4) 10^6/ul Hgb 13.3 (12.0-16.0) g/dl Hct 42 (35-47) % MCV 87 (80-97) fL MCH 28 (27-31) pg MCHC 32 (31-36) g/dl RDW 14 (10.5-15) % Plt Count 188 (150-450) 10^3/ul MPV 8 (7.4-10.4) um3 Neut % (Auto) 91.0 H (38-83) % Lymph % (Auto) 4.8 L (25-47) % [place] % (Auto) 2.2 (1-9) % Eos % (Auto) 0.7 (0-6) % Baso % (Auto) 1.3 (0-2) % Absolute Neuts (auto) 12.9 H (1.5-7.7) 10^3/ul Absolute Lymphs (auto) 0.7 L (1.0-4.8) 10^3/ul Absolute Monos (auto) 0.3 (0-0.8) 10^3/ul Absolute Eos (auto) 0.1 (0-0.6) 10^3/ul Absolute Basos (auto) 0.2 (0-0.2) 10^3/ul Absolute Nucleated RBC 0 10^3/ul Nucleated RBC % 0 INR (Anticoag Therapy) 0.94 (0.89-1.11) APTT 27.4 (26.0-36.3) seconds D-Dimer, Quantitative 658 H (Less Than 230) ng/mL Sodium 136 (133-145) mmol/L Potassium TNP Chloride 100 L (101-111) mmol/L Carbon Dioxide 30 (22-32) mmol/L Anion Gap TNP BUN 16 (6-24) mg/dL Creatinine 0.81 (0.51-0.95) mg/dL Est GFR ( Amer) 90.2 (>60) Est GFR (Non-Af Amer) 70.1 (>60) BUN/Creatinine Ratio 19.8 (8-20) Glucose 144 H (70-100) mg/dL Lactic Acid (0.5-2.0) mmol/L Calcium 9.3 (8.6-10.3) mg/dL Magnesium TNP Total Bilirubin 0.70 (0.2-1.0) mg/dL AST TNP ALT 18 (7-52) U/L Alkaline Phosphatase 72 (34-104) U/L Total Creatine Kinase 61 (10-223) U/L CK-MB (CK-2) 1.0 (0.6-6.3) ng/mL Troponin I 0.00 (<0.04) ng/mL C-Reactive Protein 75.41 H (< 5.00) mg/L B-Natriuretic Peptide ( - 100) pg/mL Total Protein 7.5 (6.4-8.9) g/dL Albumin 3.8 (3.2-5.2) g/dL Globulin 3.7 (2-4) g/dL Albumin/Globulin Ratio 1.0 (1-3) Lipase 11 (11.0-82.0) U/L TSH 1.83 (0.34-5.60) mcIU/mL 10/08/16 10/08/16 10/08/16 Range/Units 04:25 04:25 05:20 WBC (3.5-10.8) 10^3/ul RBC (4.0-5.4) 10^6/ul Hgb (12.0-16.0) g/dl Hct (35-47) % MCV (80-97) fL MCH (27-31) pg MCHC (31-36) g/dl RDW (10.5-15) % Plt Count (150-450) 10^3/ul MPV (7.4-10.4) um3 Neut % (Auto) (38-83) % Lymph % (Auto) (25-47) % [place] % (Auto) (1-9) % Eos % (Auto) (0-6) % Baso % (Auto) (0-2) % Absolute Neuts (auto) (1.5-7.7) 10^3/ul Absolute Lymphs (auto) (1.0-4.8) 10^3/ul Absolute Monos (auto) (0-0.8) 10^3/ul Absolute Eos (auto) (0-0.6) 10^3/ul Absolute Basos (auto) (0-0.2) 10^3/ul Absolute Nucleated RBC 10^3/ul Nucleated RBC % INR (Anticoag Therapy) (0.89-1.11) APTT (26.0-36.3) seconds D-Dimer, Quantitative (Less Than 230) ng/mL Sodium (133-145) mmol/L Potassium 4.4 Chloride (101-111) mmol/L Carbon Dioxide (22-32) mmol/L Anion Gap BUN (6-24) mg/dL Creatinine (0.51-0.95) mg/dL Est GFR ( Amer) (>60) Est GFR (Non-Af Amer) (>60) BUN/Creatinine Ratio (8-20) Glucose (70-100) mg/dL Lactic Acid 0.7 (0.5-2.0) mmol/L Calcium (8.6-10.3) mg/dL Magnesium 2.0 Total Bilirubin (0.2-1.0) mg/dL AST 18 ALT (7-52) U/L Alkaline Phosphatase (34-104) U/L Total Creatine Kinase (10-223) U/L CK-MB (CK-2) (0.6-6.3) ng/mL Troponin I (<0.04) ng/mL C-Reactive Protein (< 5.00) mg/L B-Natriuretic Peptide 30 ( - 100) pg/mL Total Protein (6.4-8.9) g/dL Albumin (3.2-5.2) g/dL Globulin (2-4) g/dL Albumin/Globulin Ratio (1-3) Lipase (11.0-82.0) U/L TSH (0.34-5.60) mcIU/mL Result Diagrams: 10/08/16 04:25 10/08/16 05:20 Lab Statement: Any lab studies that have been ordered have been reviewed, and results considered in the medical decision making process. - Radiology CXR Xray Interpretation: Positive (See Comments) - No comment. Radiology Interpretation Completed By: ED Physician - Dr. Torres Course/Dx - Course Course Of Treatment: NO CRITICAL CARE TIME. Assessment/Plan: PATIENT ADMIT TO HOSPITALIST STABLE. - Diagnoses Provider Diagnoses: Dyspnea Discharge - Discharge Plan Condition: Stable Disposition: ADMITTED TO [facility] Referrals: Tesha Dodson MD [Primary Care Provider] - The documentation as recorded by the Amandeep fernandez Alok accurately reflects the service I personally performed and the decisions made by , Aj Torres MD.
--- NOTE | 2016-10-08 08:35 | RAD ---
Indication: Shortness of breath, positive d-dimer. Contrast: Administered 80.9 ml of OMNIPAQUE 350 mgi/ml CTA of the chest was performed after IV contrast administration. Coronal and sagittal reconstructed images were obtained. The pulmonary arterial tree is well opacified. There is no evidence of filling defects present to suggest pulmonary embolus. The aorta is well opacified with no evidence of aortic dissection or aneurysmal dilatation. Inferior thyroid lobes are unremarkable. Pretracheal lymph node measuring up to 11 mm is noted. Subcarinal lymph node measuring up to 9 mm is noted. Right hilar lymph node measuring up to 13 mm is noted. The heart demonstrates no pericardial effusion. The trachea and major bronchi appear patent. Lung cuenca demonstrate no evidence of pleural fluid, nodules or masses. No alveolar consolidation is noted. The visualized abdominal organs are unremarkable. IMPRESSION: PROMINENT MEDIASTINAL AND RIGHT HILAR LYMPH NODE NOTED LIKELY NOT CLINICALLY SIGNIFICANT AND MAY BE REACTIVE IN NATURE. MILD EMPHYSEMATOUS CHANGES ARE NOTED. NO EVIDENCE OF PULMONARY EMBOLUS IS NOTED.
[2016-10-08] MEDS ORDERED: predniSONE TAB* 20 MG PO PRN (08:39)
[2016-10-08] MEDS ORDERED: Fluticasone NASAL SPRAY 50MCG* 16 gm SPRAY BTL BOTH NARES PRN (08:39)
[2016-10-08] MEDS ORDERED: Albuterol HFA INHALER* 8 gm MDI INH PRN ×2 (08:39→12:26)
[2016-10-08] MEDS ORDERED: Cyclobenzaprine TAB* 10 MG PO PRN (08:39)
[2016-10-08] MEDS ORDERED: oxyCODONE TAB* 5 MG TAB PO PRN (08:39)
[2016-10-08] MEDS ORDERED: Albuterol 0.5% CONC NEB.SOL* 5 MG/ML 20 ml BOT SCH (09:00)
[2016-10-08] MEDS ORDERED: Fluconazole 100 MG TAB* TAB PO ONE (10:00)
[2016-10-08] MEDS ORDERED: Azithromycin IV(*) 500 MG in NS 0.9% 250 ML* 250 ML IVPB SCH (10:00)
[2016-10-08] MEDS: Umeclidin/Vilant 62.5 MDI 62.5/25 mcg 14 INH ELLIPTA DEVICE INH SCH (10:13)
--- NOTE | 2016-10-08 10:35 | RAD ---
INDICATION: Shortness of breath. COMPARISON: Comparison is made with prior chest x-ray study from June 04, 2016. TECHNIQUE: A portable view of the chest was obtained. FINDINGS: Cardiac and mediastinal contours appear to be within normal limits. The lungs are hyperinflated. There are linear densities at the left lung base which are unchanged most consistent with scarring. The lungs are otherwise clear. No pleural effusion is seen. IMPRESSION: FINDINGS SUGGESTIVE OF COPD, NO EVIDENCE FOR ACUTE FINDING.
[2016-10-08] MEDS: methylPREDNISolone SOD 40 MG* 1 ML VIAL IV SCH ×2 (11:20→18:00)
[2016-10-08] MEDS: Cholecalciferol TAB* 1000 UNITS PO SCH (11:21)
[2016-10-08] MEDS: Aspirin Low Dose CHEW TAB* 81 MG PO SCH (11:22)
[2016-10-08] MEDS: Citalopram TAB* 20 MG PO SCH (11:22)
[2016-10-08] MEDS ORDERED: Ipratropium 0.5MG/2.5ML NEB* 0.5 MG/2.5 ML NEB.SOLN INH PRN (12:26)
[2016-10-08] MEDS ORDERED: GuaiFENesin DM* 5 ML UDC PO PRN (16:42)
[2016-10-08] MEDS ORDERED: Benzonatate CAP* 100 MG PO PRN (16:42)
[2016-10-08 20:15] LABS: Hematocrit 38 % (35-47); Hemoglobin 12.3 g/dl (12.0-16.0); Mean Corpuscular HGB Conc 32 g/dl (31-36); Mean Corpuscular Hemoglobin 28 pg (27-31); Mean Corpuscular Volume 87 fL (80-97); Mean Platelet Volume 7 um3 (7.4-10.4); Red Blood Count 4.44 10^6/ul (4.0-5.4); Red Cell Distribution Width 14 % (10.5-15); White Blood Count 11.8 10^3/ul (3.5-10.8)
[2016-10-08] MEDS: metroNIDAZOLE TAB* 250 MG PO SCH (20:19)
[2016-10-08] MEDS: Ciprofloxacin TAB* 500 MG PO SCH (20:19)
[2016-10-08] MEDS: Heparin VIAL(*) 5000 UNITS/ML VIAL (FIVE THOUSAND) SUBCUT SCH (21:29)
--- NOTE | 2016-10-08 23:01 | HP ---
HISTORY AND PHYSICAL: DATE OF ADMISSION: 10/08/16 CHIEF COMPLAINT: Shortness of breath. HISTORY OF PRESENT ILLNESS: The patient is a 71-year-old woman who says she has had trouble breathing actually for the last few months, but it has been getting worse and worse. She has not seen her doctor about it, but she said about 8:30 p.m. last night, it just became significantly worse. She began hyperventilating to try to capture her breath. She has been using her inhalers more couple of times a day. She does wear oxygen at 3 L via nasal cannula 24 hours. She has had no more cough than usual, but she did feel feverish. She has had no increased chest tightness or wheezing. In the ED, the patient was noted to have increasing wheezing and was working hard to breathe. The patient is being admitted for COPD exacerbation. PAST MEDICAL HISTORY: Significant for asthma, COPD, anxiety, dyslipidemia, diverticulitis, GERD, full mouth dental extraction in 1983, cholecystectomy, obstructive sleep apnea and 3 C-sections. CURRENT MEDICATIONS: Are as follows: 1. Albuterol sulfate 1 inhaled q.4 hours p.r.n. 2. Albuterol via nebulizer daily p.r.n. 3. Cholecalciferol 2000 units daily. 4. Aspirin 81 mg daily. 5. Lexapro 10 mg daily. 6. Flexeril 10 mg twice a day as needed. 7. Cipro 500 mg twice daily. 8. Diflucan 150 mg daily. 9. Fluticasone propionate nasal spray 50 mcg daily as needed. 10. Metronidazole 500 mg 4 times a day. 11. Anoro inhaler 1 inhaler daily. 12. Prednisone 40 mg daily. 13. Oxycodone 5 mg every 6 hours as needed. ALLERGIES: She has an allergy/adverse reaction to CECLOR, which causes hives. FAMILY HISTORY: Mother had seizures. Brother with diabetes. SOCIAL HISTORY: She quit tobacco 6 to 7 years ago. Smoked 1 pack a day for 37 years. No alcohol or recreational drug use. She was in sales, but is retired. She is with 3 children. Her , Gunnar, is her healthcare proxy. REVIEW OF SYSTEMS: A 14-point review of systems was completed with the patient. All pertinent positives and negatives are in the history of present illness, otherwise it is negative. PHYSICAL EXAMINATION GENERAL: She is a pleasant woman, sitting up in bed, in no acute distress. VITAL SIGNS: Temperature is 98 degrees, heart rate 77 beats per minute, respiratory rate 18 breaths per minute, pulse ox 94%, blood pressure 143/64. HEENT: Normocephalic and atraumatic. Pupils are equal, round and reactive to light. Moist mucous membranes. NECK: Supple. No JVD, bruits, palpable thyroid or lymphadenopathy. CHEST: Bilateral wheezing. CARDIOVASCULAR: S1, S2 appreciated. ABDOMEN: Positive bowel sounds in all 4 quadrants. Soft, nontender, and nondistended. EXTREMITIES: No cyanosis, clubbing, or edema. +2 peripheral pulses bilaterally. NEUROLOGIC: Alert and oriented x3. Moves all extremities. SKIN: No distinct rashes or abnormalities. LABORATORY DATA: White count 14.2, hemoglobin 13.3, hematocrit 42, platelets are 188. Sodium is 136, potassium 4.4, chloride 100, CO2 30, BUN 16, creatinine 0.81, glucose 144, CRP 75.41, D-dimer is 658. Chest x-ray, findings suggestive of COPD. CTA of the chest, prominent mediastinal right hilar lymph node, not noted likely , not clinically significant, may be reactive in nature. Mild emphysematous changes are noted. No evidence of pulmonary embolism noted. ASSESSMENT AND PLAN: 1. Chronic obstructive pulmonary disease exacerbation. Placed the patient on respiratory driven protocol. Supplemental oxygen. Solu-Medrol 40 IV q.8. Add Zithromax 500 mg IV daily. I expect the patient to turn around and feel better quickly and she is already feeling improved. 2. Depression/anxiety. Stable. Continue Celexa. 3. Diverticulitis, just diagnosed. We will place the patient on Cipro and Flagyl and monitor. 4. FEN. Regular diet. 5. DVT prophylaxis. Heparin subcu. 6. The patient is a full code. TIME SPENT: Over 80 minutes were spent on this H and P; more than 45 minutes were spent in direct [id number] contact with the patient in evaluation, physical exam, counseling, and coordination of care. CC: Dr. Tesha Pineda* [id number]/CPS #: [id number]
[2016-10-09] MEDS: methylPREDNISolone SOD 40 MG* 1 ML VIAL IV SCH (01:52)
[2016-10-09 02:07] LABS: EGFR African American 98.5 (>60); EGFR Non-African American 76.6 (>60)
[2016-10-09] MEDS: Heparin VIAL(*) 5000 UNITS/ML VIAL (FIVE THOUSAND) SUBCUT SCH (05:50)
[2016-10-09 06:11] VITALS: BP 144/59
[2016-10-09 07:09] LABS: Urine Bacteria Absent (Absent); Urine Bilirubin Negative (Negative); Urine Glucose Negative (Negative); Urine Nitrite Negative (Negative)
--- NOTE | 2016-10-09 09:25 | DCNOTE ---
Patient seen this morning. Says she feels about back to her baseline. Breathing is much easier than yesterday. On home oxygen. SOB with ambulation to and from bathroom with quick recovery which is her baseline. Abd pain is no longer bothersome. On exam, mild rales in B/L bases, no wheezing appreciated, RRR, s1 and s2 present, no m/g/r, abd soft, NTND, BS+, no LE edema Plan to discharge home on course of steroids and Azithromycin. Patient can complete outpatient Cipro/Flagyl. F/U with PCP.
[2016-10-09] MEDS ORDERED: Azithromycin TAB* 250 MG PO ONE (09:27)
[2016-10-09] MEDS ORDERED: predniSONE TAB* 20 MG PO SCH (10:00)
[2016-10-09] MEDS: Umeclidin/Vilant 62.5 MDI 62.5/25 mcg 14 INH ELLIPTA DEVICE INH SCH (10:14)
[2016-10-09] MEDS: Citalopram TAB* 20 MG PO SCH (10:57)
[2016-10-09] MEDS: Aspirin Low Dose CHEW TAB* 81 MG PO SCH (10:57)
[2016-10-09] MEDS: metroNIDAZOLE TAB* 250 MG PO SCH (10:58)
[2016-10-09] MEDS: Cholecalciferol TAB* 1000 UNITS PO SCH (10:58)
[2016-10-09] MEDS: Ciprofloxacin TAB* 500 MG PO SCH (10:58)
--- NOTE | 2016-10-10 02:05 | DS ---
DISCHARGE SUMMARY: DATE OF ADMISSION: 10/08/16 DATE OF DISCHARGE: 10/09/16 PRIMARY CARE PHYSICIAN: Tesha Pineda MD. PRINCIPAL DISCHARGE DIAGNOSIS: Chronic obstructive pulmonary disease exacerbation, likely secondary to viral infection. SECONDARY DIAGNOSES: 1. Anxiety. 2. Hyperlipidemia. 3. Diverticulitis. 4. Gastroesophageal reflux disease. 5. Obstructive sleep apnea. DISCHARGE MEDICATION REGIMEN: 1. Azithromycin 250 mg by mouth daily. 2. Tessalon 200 mg by mouth 3 times daily as needed for cough. 3. Prednisone 40 mg by mouth daily. 4. Oxycodone 5 mg by mouth every 6 hours as needed for pain. 5. Prednisone 40 mg by mouth daily as needed for shortness of breath or wheezing, to resume after scheduled dose. 6. Anoro 62.5/25 Ellipta device 1 inhalation daily. 7. ICAPS 2 tablets by mouth daily. 8. Flagyl 500 mg by mouth 4 times daily. 9. O2 at 3 L nasal cannula daily. 10. Fluticasone 50 mcg nasal daily as needed. 11. Fluconazole 150 mg by mouth once. 12. Ciprofloxacin 500 mg by mouth 2 times daily. 13. Cyclobenzaprine 10 mg by mouth 2 times daily as needed for muscle spasm. 14. Lexapro 10 mg by mouth daily. 15. Aspirin 81 mg by mouth daily. 16. Vitamin D 2000 units by mouth daily. 17. Albuterol sulfate 108 mcg inhaled every 4 hours as needed for shortness of breath or wheezing. STUDIES DONE DURING HOSPITALIZATION: Chest x-ray: Finding suggestive of COPD, no evidence for acute findings. CTA of the chest, impression: Prominent mediastinal and right hilar lymph node noted, likely not clinically significant , maybe reactive in nature. Mild emphysematous changes are noted. No evidence of pulmonary embolus is noted. HPI AND HOSPITAL SUMMARY: Please see the full history and physical by Dr. Tito Santiago for full details. Briefly, Ms. Hernandez is a 71-year-old female with past medical history as stated above , who presented to the hospital with progressive shortness of breath. The patient was recently diagnosed with diverticulitis and started on oral Cipro and Flagyl as an outpatient. She underwent an infectious workup here in the hospital that was largely negative. CTA of the chest showed no evidence of pulmonary embolism and no infiltrates. Flu swab was negative. The patient was started on IV steroids, azithromycin, and nebulizers with rapid improvement in her symptoms. By the following day, she felt like she was back to her baseline again. She will be discharged home to complete a course of prednisone and to complete three additional days of azithromycin. She is also instructed to complete her outpatient antibiotic course as previously prescribed for her diverticulitis. The patient will follow up with her PCP as an outpatient. TIME SPENT: Total time spent on this discharge was 40 minutes. This is a summary of the hospitalization, please see the full medical record for further details. CC: Tesha Pineda MD * [id number]/CPS #: [id number]
== END 2016-10-09 13:00 | disposition home or self-care (01) ==
LOC: ED 04:18 → MED 08:46 → INTOOBSV 08:46
PROVIDERS: ADMIT Internal Medicine; ATTEND Hospitalist
DX: J44.1 Chronic obstructive pulmonary disease with (acute) exacerbation (principal); K57.92 Diverticulitis of intestine, part unspecified, without perforation or abscess without bleeding; F41.9 Anxiety disorder, unspecified; E78.5 Hyperlipidemia, unspecified; K21.9 Gastro-esophageal reflux disease without esophagitis; G47.33 Obstructive sleep apnea (adult) (pediatric); Z79.82 Long term (current) use of aspirin; Z79.899 Other long term (current) drug therapy; Z88.1 Allergy status to other antibiotic agents; Z87.891 Personal history of nicotine dependence
CPT/HCPCS: 36415; 71010; 71275; 74177; 80053; 81003; 81015; 82550; 82553; 82565; 83605; 83690; 83735; 83880; 84443; 84484; 84520; 85025; 85379; 85610; 85730; 86140; 87040; 87086; 87502; 94660; 96372; 96374; 96375; 96376; 99212; 99285; A9270-GY; G0378; G0463; J0456; J1644; J2920; J7512; Q9967

== ENCOUNTER 2017-05-06 11:25 | Emergency (ER) | payer MEDICARE, OTHER ==
[2017-05-06] MEDS ORDERED: methylPREDNISolone 125 MG* 2 ML VIAL IV ONE (11:51)
[2017-05-06] MEDS ORDERED: Albuterol/Ipratropium NEB.SOL* Albuterol 2.5 MG/Ipratropium 0.5 MG 3 ML INH ONE (11:51)
[2017-05-06] MEDS ORDERED: NS 0.9% 1000 ML* 1,000 ML IV ONE (11:51)
--- NOTE | 2017-05-06 12:28 | RAD ---
INDICATION: Shortness of breath x2 days COMPARISON: Most recent comparison chest x-ray is dated October 08, 2016 TECHNIQUE: Single AP portable view of the chest was obtained. FINDINGS: Image quality is compromised due to the relative inferiority of a portable chest x-ray. The heart and mediastinum exhibit normal size and contour. Again seen is mild calcification overlying the arch of the aorta. There is linear density overlying the lateral aspect of the right lung base similar in appearance to the prior chest x-ray most consistent with either atelectasis or scarring. Otherwise, the lungs are grossly clear. There is no evidence of a large pleural effusion. Visualized bones are normal for the patient's age. IMPRESSION: No radiographic evidence for acute cardiopulmonary abnormality on this portable chest x-ray.
[2017-05-06 12:30] LABS: Hematocrit 42 % (35-47); Hemoglobin 13.7 g/dl (12.0-16.0); Mean Corpuscular HGB Conc 33 g/dl (31-36); Mean Corpuscular Hemoglobin 29 pg (27-31); Mean Corpuscular Volume 89 fL (80-97); Mean Platelet Volume 7 um3 (7.4-10.4); Red Blood Count 4.74 10^6/ul (4.0-5.4); Red Cell Distribution Width 14 % (10.5-15); White Blood Count 6.5 10^3/ul (3.5-10.8)
[2017-05-06 12:44] LABS: Albumin 3.7 g/dL (3.2-5.2); BUN/Creatinine Ratio 23.1 (8-20); C Reactive Protein 4.75 mg/L (< 5.00); Calcium 9.5 mg/dL (8.6-10.3); EGFR African American 94.2 (>60); EGFR Non-African American 73.2 (>60); Globulin 3.1 g/dL (2-4); Potassium 4.2 mmol/L (3.5-5.0); Total Bilirubin 0.4 mg/dL (0.2-1.0); Total Protein 6.8 g/dL (6.4-8.9); Troponin I 0.01 ng/mL (<0.04)
[2017-05-06 13:32] VITALS: BP 125/66
--- NOTE | 2017-05-10 12:37 | ED ---
Tani Whitfield Thomas, scribed for Igor Malone MD on 05/06/17 at 1220 . Shortness of Breath - HPI Summary HPI Summary: The pt is a 71 y/o F with a Hx of COPD presenting to the ED c/o SOB for the last three days. She has SOB at rest. At home, she is on 2L of oxygen. Pt additionally c/o a cough with production. Pt denies CP and leg swelling. - History of Current Complaint Chief Complaint: EDShortnessOfBreath Time Seen by Provider: 05/06/17 11:40 Hx Obtained From: Patient Onset/Duration: Lasting Days - 3, Still Present Timing: Constant Current Severity: Moderate Dyspnea At: Rest Aggrevating Factors: Nothing Alleviating Factors: Nothing Associated Signs & Symptoms: Cough (Productive) Related History: Obesity - Allergy/Home Medications Allergies/Adverse Reactions: Allergies Allergy/AdvReac Type Severity Reaction Status Date / Time Cefaclor [From [facility]] Allergy Severe Hives Verified 10/08/16 06:16 Home Medications: Home Medications Albuterol HFA INHALER* [Ventolin HFA Inhaler*] 2 puff INH Q6H PRN 05/06/17 [ History Confirmed 05/06/17] Fluticasone NASAL SPRAY 50MCG* [Flonase NASAL SPRAY 50MCG*] 2 spray BOTH NARES DAILY PRN 05/06/17 [History Confirmed 05/06/17] Multiple Vitamins W/ Minerals [Icaps Areds 2] 1 cap PO DAILY 05/06/17 [History Confirmed 05/06/17] Simvastatin (NF) [Zocor (NF)] 40 mg PO BEDTIME 05/06/17 [History Confirmed 05/06] oxyCODONE/Acetamin 5/325 MG* [Percocet 5/325 TAB*] 1 tab PO Q6H PRN 05/06/17 [ History Confirmed 05/06/17] PMH/Surg Hx/FS Hx/Imm Hx Previously Healthy: No Endocrine/Hematology History: Denies: Hx Diabetes Cardiovascular History: Denies: Hx Hypertension, Hx Pacemaker/ICD Respiratory History: Reports: Hx Asthma, Hx Chronic Obstructive Pulmonary Disease (COPD) History: Denies: Hx Renal Disease Musculoskeletal History: Denies: Hx Osteoporosis Sensory History: Reports: Hx Contacts or Glasses Denies: Hx Hearing Aid Opthamlomology History: Reports: Hx Contacts or Glasses Psychiatric History: Denies: Hx Panic Disorder - Cancer History Hx Chemotherapy: No Hx Radiation Therapy: No - Surgical History Surgery Procedure, Year, and Place: CHOLECYSTECTOMY, X3. bx left mandaeism artery WITH CLIP Infectious Disease History: No Infectious Disease History: Denies: Hx Clostridium Difficile, Hx Hepatitis, Hx Human Immunodeficiency Virus (HIV), Hx of Known/Suspected MRSA, Hx Shingles, Hx Tuberculosis, Hx Known/ Suspected VRE, Hx Known/Suspected VRSA, History Other Infectious Disease, Traveled Outside the [place] in Last 30 Days - Family History Known Family History: Positive: Diabetes - Father and brother Negative: Cardiac Disease, Hypertension - Social History Alcohol Use: None Substance Use Type: Reports: None Smoking Status (MU): Former Smoker Type: Cigarettes Amount Used/How Often: 1 ppd Length of Time of Smoking/Using Tobacco: 45 yrs Have You Smoked in the Last Year: No Review of Systems Negative: Chest Pain Positive: Shortness Of Breath, Cough - with production Negative: Edema All Other Systems Reviewed And Are Negative: Yes Physical Exam - Summary Physical Exam Summary: VITAL SIGNS: Reviewed. GENERAL: Patient is a well-developed and nourished female who is lying comfortable in the stretcher. Patient is not in any acute respiratory distress. HEAD AND FACE: No signs of trauma. No ecchymosis, hematomas or skull depressions. No sinus tenderness. EYES: PERRLA, EOMI x 2, No injected conjunctiva, no nystagmus. EARS: Hearing grossly intact. Ear canals and tympanic membranes are within normal limits. MOUTH: Oropharynx within normal limits. NECK: Supple, trachea is midline, no adenopathy, no JVD, no carotid bruit, no c- spine tenderness, neck with full ROM. CHEST: Symmetric, no tenderness at palpation LUNGS: There are bilateral wheezes. There are decreased breath sounds bilaterally. There are some crackles at the bases of the the lungs. CVS: Regular rate and rhythm, S1 and S2 present, no murmurs or gallops appreciated. ABDOMEN: Soft, non-tender. No signs of distention. No rebound no guarding, and no masses palpated. Bowel sounds are normal. EXTREMITIES: FROM in all major joints, no edema, no cyanosis or clubbing. NEURO: Alert and oriented x 3. No acute neurological deficits. Speech is normal and follows commands. SKIN: Dry and warm Triage Information Reviewed: Yes Vital Signs On Initial Exam: Initial Vitals Temp Pulse Resp BP Pulse Ox 97.7 F 63 22 115/66 97 05/06/17 11:30 05/06/17 11:30 05/06/17 11:30 05/06/17 11:30 05/06/17 11:30 Vital Signs Reviewed: Yes - [place] Coma Scale Coma Scale Total: 15 Diagnostics - Vital Signs Vital Signs Temp Pulse Resp BP Pulse Ox 05/06/17 11:30 97.7 F 63 22 115/66 97 - Laboratory Result Diagrams: 05/06/17 12:09 05/06/17 12:09 Lab Statement: Any lab studies that have been ordered have been reviewed, and results considered in the medical decision making process. - Radiology CXR Xray Interpretation: No Acute Changes - No radiographic evidence for acute cardiopulmonary abnormality on this portable chest x-ray. ED physician has reviewed this report and agrees. Radiology Interpretation Completed By: Radiologist - EKG 12:03 Cardiac Rate: Bradycardia EKG Rhythm: Sinus Bradycardia EKG Interpretation: [address] elevations. Similar to previous EKG on . Course/Dx - Course Assessment/Plan: The pt is a 71 y/o F with a Hx of COPD presenting to the ED c/ o SOB for the last three days. She has SOB at rest. At home, she is on 2L of oxygen. Pt additionally c/o a cough with production. Pt denies CP and leg swelling. Test results are without significant abnormalities. CXR shows no radiographic evidence for acute cardiopulmonary abnormality on this portable chest x-ray. In the ED course, the patient was given Duo-Neb and Solu-Medrol as well as hydration. After these were given, the patients symptoms improved. The patient is ambulating without significant shortness of breath or wheezing. Therefore, the patient will be discharged home with follow up by primary care provider. Because the patient has been having a productive cough with phlegm, I prescribed the patient Azithromycin and prednisone for home. - Diagnoses Provider Diagnoses: COPD exacerbation Discharge - Discharge Plan Condition: Stable Disposition: HOME Prescriptions: Azithromycin TAB* [Zithromax TAB (Z-DERECK) 250 mg #6 tabs] 2 tab PO .TODAY, THEN 1 DAILY #1 dereck predniSONE TAB* [Deltasone TAB*] 40 mg PO DAILY #8 tab Patient Education Materials: COPD (Chronic Obstructive Pulmonary Disease) (ED) Referrals: Tesha oDdson MD [Primary Care Provider] - 3 Days Additional Instructions: Follow up with your primary care provider in 3 days. Return to the emergency department for any new or worsening symptoms. The documentation as recorded by the Tani fernandez Thomas accurately reflects the service I personally performed and the decisions made by , Igor Malone MD.
== END 2017-05-06 13:33 | disposition home or self-care (01) ==
LOC: ED 11:25
DX: J44.1 Chronic obstructive pulmonary disease with (acute) exacerbation (principal); R05 Cough; Z86.79 Personal history of other diseases of the circulatory system; E66.9 Obesity, unspecified
CPT/HCPCS: 36415; 71010; 80053; 82550; 83880; 84484; 85025; 86140; 93005; 94640; 94760; 99283; A9270-GY; J2930

== ENCOUNTER 2017-05-29 09:21 | Emergency (ER) | payer MEDICARE, OTHER ==
--- NOTE | 2017-05-29 10:31 | UC ---
Respiratory Complaint HPI - HPI Summary HPI Summary: few days of worsening SOB--wants to feel better before the holidays-- - History of Current Complaint Hx Obtained From: Patient ?: No Onset/Duration: Gradual Onset, Lasting Days Timing: Constant Severity Initially: Mild Severity Currently: Moderate Character: Cough: Nonproductive Aggravating Factors: Exertion, Recumbent Position Alleviating Factors: Nothing Associated Signs And Symptoms: Positive: Pleuritic Chest Pain, URI, Nasal Congestion <María Edwards - Last Filed: 05/30/17 19:55> <Anabelle Stephens - Last Filed: 05/31/17 09:11> - History of Current Complaint Chief Complaint: UCRespiratory Stated Complaint: COUGH Time Seen by Provider: 05/29/17 10:20 - Allergies/Home Medications Allergies/Adverse Reactions: Allergies Allergy/AdvReac Type Severity Reaction Status Date / Time [facility] Allergy Severe Hives Verified 05/29/17 09:51 PMH/Surg Hx/FS Hx/Imm Hx Previously Healthy: No Endocrine History: Dyslipidemia Respiratory History: COPD - Surgical History Surgical History: Yes Surgery Procedure, Year, and Place: CHOLECYSTECTOMY, X3. bx left [place]ood[place] artery WITH CLIP - Family History Known Family History: Positive: None, Diabetes - Father and brother Negative: Cardiac Disease, Hypertension - Social History Occupation: Retired Lives: With Family Alcohol Use: None Substance Use Type: None Smoking Status (MU): Former Smoker Type: Cigarettes Amount Used/How Often: 1 ppd Length of Time of Smoking/Using Tobacco: 45 yrs Have You Smoked in the Last Year: No When Did the Patient Quit Smoking/Using Tobacco: 2011 - Immunization History Most Recent Influenza Vaccination: 05/25 Most Recent Pneumonia Vaccination: 2009 <María Edwards - Last Filed: 05/30/17 19:55> Review of Systems Constitutional: Negative Skin: Negative Eyes: Negative ENT: Negative Respiratory: Shortness Of Breath, Cough Cardiovascular: Negative Gastrointestinal: Negative Genitourinary: Negative Motor: Negative Neurovascular: Negative Musculoskeletal: Negative Neurological: Negative Psychological: Negative Is Patient Immunocompromised?: No All Other Systems Reviewed And Are Negative: Yes <María Edwards - Last Filed: 05/30/17 19:55> Physical Exam Triage Information Reviewed: Yes Appearance: Well-Appearing, No Pain Distress, Well-Nourished Vital Signs: Initial Vital Signs Temp 98.4 F 05/29/17 09:47 Pulse 86 05/29/17 09:47 Resp 22 05/29/17 09:47 BP 135/69 05/29/17 09:47 Pulse Ox 92 05/29/17 09:47 Vital Signs Reviewed: Yes Eye Exam: Normal Eyes: Positive: Conjunctiva Clear ENT Exam: Normal ENT: Positive: Normal ENT inspection, Hearing grossly normal, Pharynx normal, Nasal congestion, Nasal drainage, TMs normal, Uvula midline. Negative: Tonsillar swelling, Tonsillar exudate, Trismus, Muffled voice, Hoarse voice, Sinus tenderness Dental Exam: Normal Neck exam: Normal Neck: Positive: Supple, Nontender, No Lymphadenopathy Respiratory Exam: Normal Respiratory: Positive: Chest non-tender, Lungs clear, Normal breath sounds, No respiratory distress, No accessory muscle use Cardiovascular Exam: Normal Cardiovascular: Positive: RRR, No Murmur, Pulses Normal, Brisk Capillary Refill Abdominal Exam: Normal Musculoskeletal Exam: Normal Musculoskeletal: Positive: Strength Intact, ROM Intact, No Edema Neurological Exam: Normal Neurological: Positive: Alert, Muscle Tone Normal Psychological Exam: Normal Skin Exam: Normal <María Edwards - Last Filed: 05/30/17 19:55> Vital Signs: Initial Vital Signs Temp 98.4 F 05/29/17 09:47 Pulse 86 05/29/17 09:47 Resp 22 05/29/17 09:47 BP 135/69 05/29/17 09:47 Pulse Ox 92 05/29/17 09:47 <Anabelle Stephens - Last Filed: 05/31/17 09:11> UC Diagnostic Evaluation - Laboratory O2 Sat by Pulse Oximetry: 92 - Radiology Xray Interpretation: No Acute Changes Radiology Interpretation Completed By: ED Physician, Radiologist - EKG Cardiac Rate: NL Cardiac Rhythm: Sinus: Normal Ectopy: None ST Segment: Normal <María Edwards - Last Filed: 05/30/17 19:55> Respiratory Course/Dx - Course Course Of Treatment: Amoxicillin, tessalon, prednisone, continue home O2 follow with pcp - Differential Dx/Diagnosis Provider Diagnoses: Rhinnosinusitis, Exacebation of COPD <María Edwards - Last Filed: 05/30/17 19:55> Discharge <María Edwards - Last Filed: 05/30/17 19:55> <Anabelle Stephens - Last Filed: 05/31/17 09:11> - Discharge Plan Condition: Stable Disposition: HOME Prescriptions: Amoxicillin PO (*) [Amoxicillin 875 MG (*)] 875 mg PO BID #20 tab Benzonatate CAP* [Tessalon 100 MG CAP*] 100 mg PO TID PRN #30 cap PRN Reason: Cough predniSONE TAB* [Deltasone TAB*] 20 mg PO DAILY #15 tab Patient Education Materials: COPD (Chronic Obstructive Pulmonary Disease) (ED) , Rhinosinusitis (ED) Referrals: Tesha Dodson MD [Primary Care Provider] - 1 Week Attestation Statement User Type: Provider - I was available for consult. This patient was seen by the FITO. The patient was not presented to, seen by, or examined by me. -Santino <Anabelle Stephens - Last Filed: 05/31/17 09:11>
[2017-05-29] MEDS ORDERED: Albuterol 2.5 MG/3 ML NEB.SOL* (0.083%) INH ONE (10:43)
[2017-05-29] MEDS ORDERED: Ipratropium 0.5MG/2.5ML NEB* 0.5 MG/2.5 ML NEB.SOLN INH ONE (10:45)
--- NOTE | 2017-05-29 11:20 | RAD ---
INDICATION: Shortness of breath, COPD. COMPARISON: Comparison is made with prior chest x-ray studies from August 05, 2015 and May 06, 2017. TECHNIQUE: Dual-energy PA and lateral views of the chest were obtained. FINDINGS: The heart is within normal limits in size. Mediastinal and hilar contours appear within normal limits. The lungs are hyperinflated. There is a linear density at the left lung base which is unchanged from prior studies most consistent with subsegmental atelectasis or scarring. The lungs are otherwise clear. There is flattening of the diaphragms. No pleural effusion is seen. IMPRESSION: FINDINGS CONSISTENT WITH COPD, NO EVIDENCE FOR ACUTE FINDING.
[2017-05-29 11:48] VITALS: BP 137/70
== END 2017-05-29 11:45 | disposition home or self-care (01) ==
LOC: UCEAST 09:21
DX: J44.1 Chronic obstructive pulmonary disease with (acute) exacerbation (principal); E78.5 Hyperlipidemia, unspecified; J32.9 Chronic sinusitis, unspecified; Z87.891 Personal history of nicotine dependence
CPT/HCPCS: 71020; 93005; 99213; G0463; J7644

== ENCOUNTER 2017-08-19 10:20 | Emergency (ER) | payer MEDICARE, OTHER ==
[2017-08-19] MEDS ORDERED: methylPREDNISolone 125 MG* 2 ML VIAL IV ONE (10:34)
[2017-08-19] MEDS ORDERED: Albuterol/Ipratropium NEB.SOL* Albuterol 2.5 MG/Ipratropium 0.5 MG 3 ML ONE (10:45)
[2017-08-19 10:57] LABS: ABS Basophils 0 10^3/ul (0-0.2); ABS Eosinophils 0 10^3/ul (0-0.6); ABS Lymphocytes 0.7 10^3/ul (1.0-4.8); ABS Monocytes 0.5 10^3/ul (0-0.8); ABS Neutrophils 5.9 10^3/ul (1.5-7.7); ABS Nucleated RBC 0 10^3/ul; Eosinophil % 0.6 % (0-6); Hematocrit 42 % (35-47); Hemoglobin 13.8 g/dl (12.0-16.0); Lymphocyte % 9.9 % (25-47); Mean Corpuscular HGB Conc 33 g/dl (31-36); Mean Corpuscular Hemoglobin 29 pg (27-31); Mean Corpuscular Volume 88 fL (80-97); Mean Platelet Volume 7 um3 (7.4-10.4); Nucleated Red Blood Cells % 0; Platelet Count 152 10^3/ul (150-450); Red Blood Count 4.71 10^6/ul (4.0-5.4); Red Cell Distribution Width 14 % (10.5-15); White Blood Count 7.2 10^3/ul (3.5-10.8)
[2017-08-19] MEDS ORDERED: Albuterol/Ipratropium NEB.SOL* Albuterol 2.5 MG/Ipratropium 0.5 MG 3 ML INH SCH (11:00)
[2017-08-19 11:16] LABS: EGFR Non-African American 84.1 (>60)
--- NOTE | 2017-08-19 11:36 | RAD ---
Indication: Shortness of breath. 2 views of the chest demonstrates no mediastinal shift. Heart is of normal size and configuration. Lung cuenca are clear. IMPRESSION: No active cardiopulmonary disease is noted.
[2017-08-19] MEDS ORDERED: Albuterol/Ipratropium NEB.SOL* Albuterol 2.5 MG/Ipratropium 0.5 MG 3 ML INH ONE (11:42)
[2017-08-19] MEDS ORDERED: Azithromycin TAB* 250 MG PO ONE (12:10)
[2017-08-19 14:17] VITALS: BP 118/52
--- NOTE | 2017-08-19 18:56 | ED ---
Vince Whitfield Angela, scribed for Igor Malone MD on 08/19/17 at 1038 . Shortness of Breath - HPI Summary HPI Summary: This pt is a 72 y/o female presenting to [facility] c/o SOB x2 days, worsening since last night. She notes SOB is characterized as dyspnea at rest. Pt reports she has chest congestion, productive cough, and chills. She describes productive cough with green/yellow sputum. Denies fever. PMHx includes COPD. Pt is on 3L of oxygen at home. - History of Current Complaint Chief Complaint: EDShortnessOfBreath Time Seen by Provider: 08/19/17 10:30 Hx Obtained From: Patient Onset/Duration: Lasting Days, Still Present, Worse Since - last night Timing: Constant Current Severity: Severe Dyspnea At: Rest Aggrevating Factors: Nothing Alleviating Factors: Nothing Associated Signs & Symptoms: Cough (Productive), Wheezing, Chills - Allergy/Home Medications Allergies/Adverse Reactions: Allergies Allergy/AdvReac Type Severity Reaction Status Date / Time Cefaclor [From [facility]] Allergy Severe Hives Verified 05/29/17 09:51 Home Medications: Home Medications Ipratropium 0.5MG/2.5ML NEB* [Atrovent 0.5 MG NEB.MOIRA*] 0.5 mg INH Q6H PRN 08/19 [History Confirmed 08/19/17] Vit A/Vit C/Vit E/Zinc/Copper [Preservision Areds Softgel] 2 cap PO DAILY [History Confirmed 08/19/17] oxyCODONE/Acetamin 5/325 MG* [Percocet 5/325 TAB*] 1 tab PO Q6H PRN 08/19/17 [ History Confirmed 08/19/17] PMH/Surg Hx/FS Hx/Imm Hx Endocrine/Hematology History: Denies: Hx Diabetes Cardiovascular History: Denies: Hx Hypertension, Hx Pacemaker/ICD Respiratory History: Reports: Hx Asthma, Hx Chronic Obstructive Pulmonary Disease (COPD) History: Denies: Hx Renal Disease Musculoskeletal History: Denies: Hx Osteoporosis Sensory History: Reports: Hx Contacts or Glasses Denies: Hx Hearing Aid Opthamlomology History: Reports: Hx Contacts or Glasses Psychiatric History: Denies: Hx Panic Disorder - Cancer History Hx Chemotherapy: No Hx Radiation Therapy: No - Surgical History Surgery Procedure, Year, and Place: CHOLECYSTECTOMY, X3. bx left caodaism artery WITH CLIP Infectious Disease History: No Infectious Disease History: Denies: Hx Clostridium Difficile, Hx Hepatitis, Hx Human Immunodeficiency Virus (HIV), Hx of Known/Suspected MRSA, Hx Shingles, Hx Tuberculosis, Hx Known/ Suspected VRE, Hx Known/Suspected VRSA, History Other Infectious Disease, Traveled Outside the [place] in Last 30 Days - Family History Known Family History: Positive: Diabetes - Father and brother Negative: Cardiac Disease, Hypertension - Social History Alcohol Use: None Substance Use Type: Reports: None Smoking Status (MU): Former Smoker Type: Cigarettes Amount Used/How Often: 1 ppd Length of Time of Smoking/Using Tobacco: 45 yrs Have You Smoked in the Last Year: No Review of Systems Positive: Chills. Negative: Fever Negative: Chest Pain Respiratory: Other - chest congestion Positive: Shortness Of Breath, Cough Genitourinary: Negative Musculoskeletal: Negative Skin: Negative Neurological: Negative All Other Systems Reviewed And Are Negative: Yes Physical Exam - Summary Physical Exam Summary: VITAL SIGNS: Reviewed. GENERAL: Patient is a well-developed and nourished female who is lying comfortable in the stretcher. HEAD AND FACE: No signs of trauma. No ecchymosis, hematomas or skull depressions. No sinus tenderness. EYES: PERRLA, EOMI x 2, No injected conjunctiva, no nystagmus. EARS: Hearing grossly intact. Ear canals and tympanic membranes are within normal limits. MOUTH: Oropharynx within normal limits. NECK: Supple, trachea is midline, no adenopathy, no JVD, no carotid bruit, no c- spine tenderness, neck with full ROM. CHEST: Symmetric, no tenderness at palpation LUNGS: Decreased breath sounds bilaterally with slight wheezing. CVS: Regular rate and rhythm, S1 and S2 present, no murmurs or gallops appreciated. ABDOMEN: Soft, non-tender. No signs of distention. No rebound no guarding, and no masses palpated. Bowel sounds are normal. EXTREMITIES: FROM in all major joints, no edema, no cyanosis or clubbing. NEURO: Alert and oriented x 3. No acute neurological deficits. Speech is normal and follows commands. SKIN: Dry and warm Triage Information Reviewed: Yes Vital Signs On Initial Exam: Initial Vitals Temp Pulse Resp BP Pulse Ox 100.2 F 114 28 98/71 90 08/19/17 10:24 08/19/17 10:24 08/19/17 10:24 08/19/17 10:24 08/19/17 10:24 Vital Signs Reviewed: Yes Diagnostics - Vital Signs Vital Signs Temp Pulse Resp BP Pulse Ox 08/19/17 10:24 100.2 F 114 28 98/71 90 - Laboratory Result Diagrams: 08/19/17 10:48 08/19/17 10:48 Lab Statement: Any lab studies that have been ordered have been reviewed, and results considered in the medical decision making process. - Radiology Chest XR Xray Interpretation: No Acute Changes - IMPRESSION: No active cardiopulmonary disease is noted. Dr. Malone has reviewed this radioloy report. Radiology Interpretation Completed By: Radiologist - EKG 10:43 Cardiac Rate: NL EKG Rhythm: Sinus Rhythm - at 99 bpm EKG Interpretation: No ST elevation. Normal axis. Re-Evaluation - Re-Evaluation First Eval Re-Evaluation Time: 11:39 Change: Unchanged Comment: On re-eval pt still has some wheezing. Will order another breathing treatment. Second Eval Re-Evaluation Time: 13:28 Change: Improved Comment: Pt is feeling much better. Wheezing has improved. Course/Dx - Course Assessment/Plan: This pt is a 72 y/o female presenting to [facility] c/o SOB x2 days , worsening since last night. She notes SOB is characterized as dyspnea at rest. Pt reports she has chest congestion, productive cough, and chills. She describes productive cough with green/yellow sputum. Denies fever. PMHx includes COPD. Pt is on 3L of oxygen at home. Test results without any significant abnormalities, except for ABG pH of 7.47, pCO2 of 47, pO2 of 107, O2 saturation of 98.6, CRP of 13.07. Influenza A and B are both negative. Chest XR shows no active cardiopulmonary disease is noted. In the ED course the pt was given a couple of duonebs, solu-medrol, azithromycin. Pt reports feeling better and wheezing has improved. Therefore, pt will be discharged to home with follow up from her PCP. She will be prescribed azithromycin and prednisone. Pt is instructed to return to the ED for any worsening or new symptoms. Pt is hemodynamically stable, alert and oriented x3. - Diagnoses Provider Diagnoses: COPD exacerbation Discharge - Discharge Plan Condition: Stable Disposition: HOME Prescriptions: Azithromycin TAB* [Zithromax TAB (Z-DERECK) 250 mg #6 tabs] 250 mg PO DAILY #4 tab predniSONE TAB* [Deltasone TAB*] 40 mg PO DAILY #8 tab Patient Education Materials: COPD (Chronic Obstructive Pulmonary Disease) (ED) Referrals: Tesha Dodson MD [Primary Care Provider] - 3 Days Additional Instructions: Please follow up with your primary care provider. RETURN TO THE ED FOR ANY WORSENING SYMPTOMS. The documentation as recorded by the Vince fernandez Angela accurately reflects the service I personally performed and the decisions made by , Igor Malone MD.
--- NOTE | 2017-08-20 11:01 | PN ---
Progress Note - Progress Note Date of Service: 08/19/17 Note: lab called and spoke with estrella BRANDT. patient had a +1 blood culture with of gram positive s aureus that is probably contaminant. patient was diagnosed and treated for COPD exacerbation. was not showing any signs of infection or sepsis, had normal vitals and labs at visit. will wait for culture results tomorrow.
== END 2017-08-19 14:16 | disposition home or self-care (01) ==
LOC: ED 10:20
DX: J44.1 Chronic obstructive pulmonary disease with (acute) exacerbation (principal); R05 Cough; R06.2 Wheezing; R68.83 Chills (without fever); Z87.891 Personal history of nicotine dependence
CPT/HCPCS: 36415; 36600; 71046; 80053; 82550; 82553; 82803; 83605; 83880; 84484; 85025; 85730; 86140; 87040; 87077; 87150; 87205; 87502; 93005; 94640; 96374; 99282; A9270-GY; J2930

== ENCOUNTER 2017-12-29 17:46 | Emergency (ER) | payer MEDICARE, OTHER ==
[2017-12-29 17:55] VITALS: BP 131/62
[2017-12-29] MEDS ORDERED: Albuterol/Ipratropium NEB.SOL* Albuterol 2.5 MG/Ipratropium 0.5 MG 3 ML INH ONE (18:06)
--- NOTE | 2017-12-29 18:16 | UC ---
Shortness of Breath HPI - HPI Summary HPI Summary: This is rebecca Espinoza documenting for attending Lilian Lott MD. This patient is a 72 year old F presenting to [facility] accompanied by her daughter with a chief complaint of shortness of breath since 3-4 days ago. The patient rates the pain 0/10 in severity. Symptoms aggravated by exertion. Symptoms alleviated by nothing. Patient reports headache, neck pain, productive cough, rapid breathing, hungry for air, decreased fluid intake, and tachypnea. Patient denies chest pain. The patient is usually on 3 liters of oxygen at home. Patient has hx of COPD, emphysema, and chronic bronchitis. - History of Current Complaint Chief Complaint: UCRespiratory Stated Complaint: SHORTNESS OF BREATH Time Seen by Provider: 12/29/17 18:05 Hx Obtained From: Patient, Family/Salesperson Burial Needs - patient's daughter Hx Last Menstrual Period: NA Onset/Duration: Gradual Onset, Lasting Days - 3-4 days, Still Present Timing: Constant - Allergy/Home Medications Allergies/Adverse Reactions: Allergies Allergy/AdvReac Type Severity Reaction Status Date / Time cefaclor Allergy Severe Hives Verified 12/29/17 18:28 PMH/Surg Hx/FS Hx/Imm Hx Respiratory History: COPD - emphysema, Bronchitis - chronic bronchitis - Surgical History Surgical History: Yes Surgery Procedure, Year, and Place: CHOLECYSTECTOMY, X3. bx left restoration artery WITH CLIP - Family History Known Family History: Positive: None, Diabetes - Father and brother Negative: Cardiac Disease, Hypertension - Social History Alcohol Use: None Substance Use Type: None Smoking Status (MU): Former Smoker Type: Cigarettes Amount Used/How Often: 1 ppd Length of Time of Smoking/Using Tobacco: 45 yrs Have You Smoked in the Last Year: No When Did the Patient Quit Smoking/Using Tobacco: 2011 - Immunization History Most Recent Influenza Vaccination: 05/25 Most Recent Pneumonia Vaccination: 2009 Review of Systems ENT: Negative - negative epistaxis Respiratory: Shortness Of Breath, Cough, Other - tachypnea, hungry for air Cardiovascular: Negative - negative chest pain Gastrointestinal: Other - decreased fluid intake All Other Systems Reviewed And Are Negative: Yes Physical Exam - Summary Physical Exam Summary: Appearance: Well-appearing, Well-nourished Skin: Warm Eyes: Normal ENT: Normal Neck: Supple, nontender Respiratory: Crackles on left base, visibly tachypneic with respiratory rate in high 30s-40s, upper respiratory guttural sounds on expiration, no wheezing, no stridor Cardiovascular: Regular rate, regular rhythm. Normal S1, S2. Abdomen: Soft, nontender Musculoskeletal: Normal, Strength/ROM Intact Neurological: Normal, A&Ox3 Psychiatric: Normal General: No acute distress Triage Information Reviewed: Yes Vital Signs: Initial Vital Signs Temp 99.8 F 12/29/17 17:49 Pulse 92 12/29/17 17:49 Resp 24 12/29/17 17:49 BP 131/62 12/29/17 17:49 Pulse Ox 91 12/29/17 17:49 Vital Signs Reviewed: Yes Shortness of Breath Dx - Course Course Of Treatment: Pt p/W increased tachypnea with h/o COPD on chronic O2 2- 3L , more tahcypneic c/o air hunger, will need to go to ED to r/o PE vs CHF vs infectious etiology - Differential Dx/Diagnosis Differential Diagnosis/HQI/PQRI: Asthma, Bronchitis, CHF, Chest Wall Pain, COPD Exacerbation, Pneumonia, Pulmonary Embolism, Pulmonary Edema, Unstable Angina Provider Diagnoses: Acute tachypnea. Hypoxia. COPD exacerbation Discharge - Sign-Out/Discharge Documenting (check all that apply): Patient Departure - Discharge Plan Condition: Guarded Disposition: TRANS HIGHER LVL OF CARE FAC Referrals: Tesha Dodson MD [Primary Care Provider] - - Billing Disposition and Condition Condition: GUARDED Disposition: Trans Higher Lvl of Care Fac
== END 2017-12-29 18:24 | disposition short-term general hospital (02) ==
LOC: UCEAST 17:46
DX: J44.1 Chronic obstructive pulmonary disease with (acute) exacerbation (principal); Z88.1 Allergy status to other antibiotic agents; J44.9 Chronic obstructive pulmonary disease, unspecified; Z87.891 Personal history of nicotine dependence; Z99.81 Dependence on supplemental oxygen
CPT/HCPCS: 99213; A9270-GY; G0463

== ENCOUNTER 2017-12-29 18:41 | Emergency (ER) | payer MEDICARE, OTHER ==
[2017-12-29] MEDS ORDERED: methylPREDNISolone 125 MG* 2 ML VIAL IV ONE (19:20)
[2017-12-29] MEDS ORDERED: Albuterol/Ipratropium NEB.SOL* Albuterol 2.5 MG/Ipratropium 0.5 MG 3 ML ONE ×2 (19:42→20:58)
[2017-12-29] MEDS: Albuterol/Ipratropium NEB.SOL* Albuterol 2.5 MG/Ipratropium 0.5 MG 3 ML INH SCH ×3 (19:47→20:59)
[2017-12-29 20:02] LABS: ABS Basophils 0.1 10^3/ul (0-0.2); ABS Eosinophils 0.2 10^3/ul (0-0.6); ABS Lymphocytes 1.3 10^3/ul (1.0-4.8); ABS Monocytes 0.4 10^3/ul (0-0.8); ABS Neutrophils 3.7 10^3/ul (1.5-7.7); ABS Nucleated RBC 0 10^3/ul; Eosinophil % 3.2 % (0-6); Hematocrit 37 % (35-47); Hemoglobin 12.2 g/dl (12.0-16.0); Lymphocyte % 23.2 % (25-47); Mean Corpuscular HGB Conc 33 g/dl (31-36); Mean Corpuscular Hemoglobin 29 pg (27-31); Mean Corpuscular Volume 88 fL (80-97); Mean Platelet Volume 7.1 um3 (7.4-10.4); Nucleated Red Blood Cells % 0; Platelet Count 185 10^3/ul (150-450); Red Blood Count 4.21 10^6/ul (4.00-5.40); Red Cell Distribution Width 14 % (10.5-15); White Blood Count 5.7 10^3/ul (3.5-10.8)
[2017-12-29 20:15] LABS: EGFR Non-African American 91.7 (>60)
[2017-12-29] MEDS ORDERED: Levofloxacin 750 MG IVPREMIX(* 750 MG/150 ML BAG IVPB ONE (20:50)
--- NOTE | 2017-12-29 21:02 | ED ---
Shortness of Breath - HPI Summary HPI Summary: Pt is a 72 y/o F who presents to ED c/o SOB. She visited earlier today and was recommended to visit the ED. The pain began 3 to 4 days ago when it became harder to breathe. Rates her pain intensity as a 5/10. Pt has been coughing a lot, and sometimes phlegm is present, and she feels a burning when she coughs. Exertion exacerbates the symptoms. Notes wheezing and a fever earlier today. Denies chest pain. PMHx of COPD, chronic bronchitis, and emphysema. - History of Current Complaint Chief Complaint: EDShortnessOfBreath Time Seen by Provider: 12/29/17 18:58 Hx Obtained From: Patient Onset/Duration: Lasting Days, Still Present Current Severity: Moderate - 5/10 Aggrevating Factors: Movement Associated Signs & Symptoms: Cough (Productive), Cough (Nonproductive), Wheezing , Fever - Allergy/Home Medications Allergies/Adverse Reactions: Allergies Allergy/AdvReac Type Severity Reaction Status Date / Time cefaclor Allergy Severe Hives Verified 12/29/17 18:28 PMH/Surg Hx/FS Hx/Imm Hx Endocrine/Hematology History: Denies: Hx Diabetes, Hx Thyroid Disease Cardiovascular History: Denies: Hx Hypertension, Hx Pacemaker/ICD Respiratory History: Reports: Hx Asthma, Hx Chronic Obstructive Pulmonary Disease (COPD) GI History: Denies: Hx Ulcer History: Denies: Hx Renal Disease Musculoskeletal History: Denies: Hx Osteoporosis Sensory History: Reports: Hx Contacts or Glasses Denies: Hx Hearing Aid Opthamlomology History: Reports: Hx Contacts or Glasses Psychiatric History: Denies: Hx Panic Disorder - Cancer History Hx Chemotherapy: No Hx Radiation Therapy: No - Surgical History Surgery Procedure, Year, and Place: CHOLECYSTECTOMY, X3. bx left catholic artery WITH CLIP Infectious Disease History: No Infectious Disease History: Denies: Hx Clostridium Difficile, Hx Hepatitis, Hx Human Immunodeficiency Virus (HIV), Hx of Known/Suspected MRSA, Hx Shingles, Hx Tuberculosis, Hx Known/ Suspected VRE, Hx Known/Suspected VRSA, History Other Infectious Disease, Traveled Outside the [place] in Last 30 Days - Family History Known Family History: Positive: Diabetes - Father and brother Negative: Cardiac Disease, Hypertension - Social History Alcohol Use: None Substance Use Type: Reports: None Smoking Status (MU): Former Smoker Type: Cigarettes Amount Used/How Often: 1 ppd Length of Time of Smoking/Using Tobacco: 45 yrs Have You Smoked in the Last Year: No Review of Systems Positive: Fever Negative: Chest Pain Positive: Shortness Of Breath, Cough, Other - Wheezing All Other Systems Reviewed And Are Negative: Yes Physical Exam - Summary Physical Exam Summary: VITAL SIGNS: Reviewed. GENERAL: Patient is a well-developed and nourished female who is lying comfortable in the stretcher. Patient is not in any acute respiratory distress. HEAD AND FACE: No signs of trauma. No ecchymosis, hematomas or skull depressions. No sinus tenderness. EYES: PERRLA, EOMI x 2, No injected conjunctiva, no nystagmus. EARS: Hearing grossly intact. Ear canals and tympanic membranes are within normal limits. MOUTH: Oropharynx within normal limits. NECK: Supple, trachea is midline, no adenopathy, no JVD, no carotid bruit, no c- spine tenderness, neck with full ROM. CHEST: Symmetric, no tenderness at palpation LUNGS: Wheezing. Bilateral crackles at base of lungs. CVS: Regular rate and rhythm, S1 and S2 present, no murmurs or gallops appreciated. ABDOMEN: Soft, non-tender. No signs of distention. No rebound no guarding, and no masses palpated. Bowel sounds are normal. EXTREMITIES: FROM in all major joints, no edema, no cyanosis or clubbing. NEURO: Alert and oriented x 3. No acute neurological deficits. Speech is normal and follows commands. SKIN: Dry and warm Triage Information Reviewed: Yes Vital Signs On Initial Exam: Initial Vitals Temp Pulse Resp BP Pulse Ox 98.6 F 90 26 143/84 97 12/29/17 18:48 12/29/17 18:48 12/29/17 18:48 12/29/17 18:48 12/29/17 18:48 Vital Signs Reviewed: Yes Diagnostics - Vital Signs Vital Signs Temp Pulse Resp BP Pulse Ox 12/29/17 20:33 78 16 96 12/29/17 20:23 81 23 124/52 95 12/29/17 20:00 85 26 94 12/29/17 19:53 84 24 160/63 96 12/29/17 19:50 82 22 96 12/29/17 19:22 86 23 150/111 95 07/22/18 19:00 95 15 93 12/29/17 18:53 87 23 143/84 97 12/29/17 18:52 89 22 97 12/29/17 18:48 98.6 F 90 26 143/84 97 - Laboratory Lab Results: Lab Results 12/29/17 12/29/17 12/29/17 Range/Units 19:44 19:45 19:45 WBC 5.7 (3.5-10.8) 10^3/ul RBC 4.21 (4.00-5.40) 10^6/ul Hgb 12.2 (12.0-16.0) g/dl Hct 37 (35-47) % MCV 88 (80-97) fL MCH 29 (27-31) pg MCHC 33 (31-36) g/dl RDW 14 (10.5-15) % Plt Count 185 (150-450) 10^3/ul MPV 7.1 L (7.4-10.4) um3 Neut % (Auto) 64.9 (38-83) % Lymph % (Auto) 23.2 L (25-47) % [place] % (Auto) 7.8 H (0-7) % Eos % (Auto) 3.2 (0-6) % Baso % (Auto) 0.9 (0-2) % Absolute Neuts (auto) 3.7 (1.5-7.7) 10^3/ul Absolute Lymphs (auto) 1.3 (1.0-4.8) 10^3/ul Absolute Monos (auto) 0.4 (0-0.8) 10^3/ul Absolute Eos (auto) 0.2 (0-0.6) 10^3/ul Absolute Basos (auto) 0.1 (0-0.2) 10^3/ul Absolute Nucleated RBC 0 10^3/ul Nucleated RBC % 0 Sodium 142 (135-145) mmol/L Potassium 4.1 (3.5-5.0) mmol/L Chloride 99 L (101-111) mmol/L Carbon Dioxide 35 H (22-32) mmol/L Anion Gap 8 (2-11) mmol/L BUN 17 (6-24) mg/dL Creatinine 0.64 (0.51-0.95) mg/dL Est GFR ( Amer) 111.0 (>60) Est GFR (Non-Af Amer) 91.7 (>60) BUN/Creatinine Ratio 26.6 H (8-20) Glucose 97 (70-100) mg/dL Lactic Acid 1.1 (0.5-2.0) mmol/L Calcium 9.3 (8.6-10.3) mg/dL Total Bilirubin 0.50 (0.2-1.0) mg/dL AST 14 (13-39) U/L ALT 12 (7-52) U/L Alkaline Phosphatase 73 (34-104) U/L Total Creatine Kinase 69 (10-223) U/L Troponin I 0.01 (<0.04) ng/mL C-Reactive Protein 24.47 H (<8.01) mg/L B-Natriuretic Peptide ( - 100) pg/mL Total Protein 7.2 (6.4-8.9) g/dL Albumin 3.7 (3.2-5.2) g/dL Globulin 3.5 (2-4) g/dL Albumin/Globulin Ratio 1.1 (1-3) 12/29/17 Range/Units 19:46 WBC (3.5-10.8) 10^3/ul RBC (4.00-5.40) 10^6/ul Hgb (12.0-16.0) g/dl Hct (35-47) % MCV (80-97) fL MCH (27-31) pg MCHC (31-36) g/dl RDW (10.5-15) % Plt Count (150-450) 10^3/ul MPV (7.4-10.4) um3 Neut % (Auto) (38-83) % Lymph % (Auto) (25-47) % [place] % (Auto) (0-7) % Eos % (Auto) (0-6) % Baso % (Auto) (0-2) % Absolute Neuts (auto) (1.5-7.7) 10^3/ul Absolute Lymphs (auto) (1.0-4.8) 10^3/ul Absolute Monos (auto) (0-0.8) 10^3/ul Absolute Eos (auto) (0-0.6) 10^3/ul Absolute Basos (auto) (0-0.2) 10^3/ul Absolute Nucleated RBC 10^3/ul Nucleated RBC % Sodium (135-145) mmol/L Potassium (3.5-5.0) mmol/L Chloride (101-111) mmol/L Carbon Dioxide (22-32) mmol/L Anion Gap (2-11) mmol/L BUN (6-24) mg/dL Creatinine (0.51-0.95) mg/dL Est GFR ( Amer) (>60) Est GFR (Non-Af Amer) (>60) BUN/Creatinine Ratio (8-20) Glucose (70-100) mg/dL Lactic Acid (0.5-2.0) mmol/L Calcium (8.6-10.3) mg/dL Total Bilirubin (0.2-1.0) mg/dL AST (13-39) U/L ALT (7-52) U/L Alkaline Phosphatase (34-104) U/L Total Creatine Kinase (10-223) U/L Troponin I (<0.04) ng/mL C-Reactive Protein (<8.01) mg/L B-Natriuretic Peptide 22 ( - 100) pg/mL Total Protein (6.4-8.9) g/dL Albumin (3.2-5.2) g/dL Globulin (2-4) g/dL Albumin/Globulin Ratio (1-3) Result Diagrams: 12/29/17 19:44 12/29/17 19:45 Lab Statement: Any lab studies that have been ordered have been reviewed, and results considered in the medical decision making process. - Radiology CXR Radiology Interpretation Completed By: ED Physician - Impression: No acute pathology. Pending official report. - EKG 19:57 Cardiac Rate: NL - 83 bpm EKG Rhythm: Sinus Rhythm EKG Interpretation: No ST elevation EKG Comparison: No Significant Change - Similar to EKG from 08/19/17. Course/Dx - Course Assessment/Plan: Physical sounds without any significant abnormality, except for CRP of 24.4. Chest x-ray impression: No acute pathology. In the ED course and the patient was given DuoNebs and Solu-Medrol for the COPD exacerbation. I also ordered 1 dose of Levaquin since the patient reports productive cough with yellowish phlegm. The patient also had a C-spine CT since the patient was complaining of some neck pain following a sudden stretching. CT of the C-spine is negative for any acute pathology. Patient was given Toradol for the pain and symptoms improved. The patient has no longer any pain. She also reports her shortness of breath has resolved and she is no longer wheezing and physical exam. Therefore I believe that the patient had a COPD exacerbation. She is the patients symptoms have improved the patient will be discharged home with follow-up with PCP. The patient will be given a position for Levaquin for 4 days. She was instructed to return to the emergency department if the symptoms return or worsen or she develop any of the symptoms. She understands and agrees. All other concerns were addressed and there is no further questions. - Diagnoses Provider Diagnoses: COPD exacerbation, Bronchitis Discharge - Sign-Out/Discharge Documenting (check all that apply): Patient Departure - Discharge - Discharge Plan Condition: Stable Disposition: HOME Patient Education Materials: COPD (Chronic Obstructive Pulmonary Disease) (ED) Referrals: Tesha Dodson MD [Primary Care Provider] - 3 Days Additional Instructions: RETURN TO ED FOR ANY NEW OR WORSENING SYMPTOMS.
[2017-12-29 23:26] VITALS: BP 143/75
--- NOTE | 2017-12-30 07:36 | RAD ---
INDICATION: Short of breath COMPARISON: August 19, 2017 TECHNIQUE: PA and lateral dual-energy views were obtained. FINDINGS: Bones/Soft Tissues: There are no acute bony findings. Cardiomediastinal: The cardiomediastinal silhouette is normal. Lungs: There are no acute infiltrates. There is minimal left basilar scarring or atelectasis. Pleura: There are no pleural effusions. Other: None IMPRESSION: Minimal left basilar abnormalities. No findings
--- NOTE | 2017-12-30 08:01 | RAD ---
INDICATION: Neck pain. COMPARISON: April 07, 2015 CT TECHNIQUE: Multidetector CT images foramen magnum to lung apices without contrast. Multiplanar reformation. REPORT: Emphysema noted at the visualized lung apices. Normal vertebral alignment accounting for exam positioning without spondylolisthesis or subluxation at any level. Negative for cervical vertebral body or posterior element fracture. Negative for paravertebral hematoma. Multilevel degenerative spondylosis and facet joint osteoarthritis. Disc space narrowing is most prominent at C4-C5 through C6-C7 moderately severe. At C3-C4 uncinate process spurring and facet joint osteoarthritis results in mild RIGHT foraminal stenosis. At C4-C5 uncinate process spurring and facet joint osteoarthritis results in moderately severe bilateral foraminal stenosis with interval progression. C5-C6 dorsal disc osteophyte complex results in mild acquired central canal stenosis without significant change. Uncinate process spurring results in moderate bilateral foraminal stenosis. At C6-C7 dorsal disc osteophyte complex results in mild impression on the ventral margin of the thecal sac. Uncinate process spurring and facet joint osteoarthritis results in mild bilateral foraminal stenosis without significant change. IMPRESSION: #. No CT evidence for traumatic cervical spine injury. #. Degenerative spondylosis and facet joint osteoarthritis with associated acquired spinal stenosis with only mild interval worsening compared with the 2014 exam.
== END 2017-12-29 23:26 | disposition home or self-care (01) ==
LOC: ED 18:41
DX: J44.1 Chronic obstructive pulmonary disease with (acute) exacerbation (principal); Z87.891 Personal history of nicotine dependence; Z88.3 Allergy status to other anti-infective agents; Z88.1 Allergy status to other antibiotic agents; Z99.81 Dependence on supplemental oxygen
CPT/HCPCS: 36415; 71046; 72125; 80053; 82550; 83605; 83880; 84484; 85025; 86140; 87040; 93005; 96365; 96375; 99284; A9270-GY; J2930

== ENCOUNTER 2018-01-20 10:49 | Inpatient (IN) | payer MEDICARE, OTHER ==
--- OUTSIDE RECORDS SUMMARY | 2018-01-20 11:31 | XMS REPORT ---
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 Rate 76 /min BP Systolic 110 mmHg BP Diastolic 60 mmHg Height 60.5 inches 5'0.50" BMI (Body Mass Index) 41.9 kg/m2 09/15/2012 Body Temperature 98.0 F Weight 210.00 lb Heart Rate 76 /min BP Systolic 120 mmHg BP Diastolic 66 mmHg Height 60.5 inches 5'0.50" BMI (Body Mass Index) 40.3 kg/m2 08/15/2012 Body Temperature 98.5 F Weight 223.00 lb Heart Rate 64 /min BP Systolic 118 mmHg BP Diastolic 64 mmHg Height 60.5 inches 5'0.50" BMI (Body Mass Index) 42.8 kg/m2 04/18/2012 Weight 220.00 lb Heart Rate 72 /min BP Systolic 112 mmHg BP Diastolic 70 mmHg Height 60.5 inches 5'0.50" BMI (Body Mass Index) 42.3 kg/m2 04/11/2012 Weight 221.00 lb Heart Rate 80 /min BP Systolic 112 mmHg BP Diastolic 78 mmHg Height 60.5 inches 5'0.50" BMI (Body Mass Index) 42.4 kg/m2 02/05/2012 Weight 219.00 lb Heart Rate 72 /min BP Systolic 110 mmHg BP Diastolic 64 mmHg Height 60.5 inches 5'0.50" BMI (Body Mass Index) 42.1 kg/m2 11/26/2011 Body Temperature 98.7 F Weight 212.00 lb Heart Rate 65 /min BP Systolic 108 mmHg BP Diastolic 66 mmHg Height 60.5 inches 5'0.50" BMI (Body Mass Index) 40.7 kg/m2 10/08/2011 Weight 203.00 lb Heart Rate 72 /min BP Systolic 118 mmHg BP Diastolic 64 mmHg Height 60.5 inches 5'0.50" BMI (Body Mass Index) 39.0 kg/m2 07/27/2011 Body Temperature 98.5 F Weight 195.00 lb Heart Rate 84 /min BP Systolic 120 mmHg BP Diastolic 66 mmHg Height 60.5 inches 5'0.50" BMI (Body Mass Index) 37.5 kg/m2 07/09/2011 Weight 194.00 lb Heart Rate 76 /min BP Systolic 128 mmHg BP Diastolic 60 mmHg Height 60.5 inches 5'0.50" BMI (Body Mass Index) 37.3 kg/m2 04/27/2011 Body Temperature 98.3 F Weight 197.00 lb Heart Rate 77 /min BP Systolic 100 mmHg BP Diastolic 60 mmHg O2 % BldC Oximetry 88 % On Ra @ Rest 01/23/2011 Weight 204.00 lb Heart Rate 80 /min BP Systolic 110 mmHg BP Diastolic 60 mmHg 10/25/2010 Body Temperature 97.5 F Weight 211.00 lb Heart Rate 64 /min BP Systolic 110 mmHg BP Diastolic 60 mmHg 10/20/2010 Body Temperature 99.1 F Weight 207.00 lb Heart Rate 84 /min BP Systolic 140 mmHg BP Diastolic 80 mmHg 07/12/2010 Body Temperature 98.7 F Weight 212.00 lb Heart Rate 72 /min BP Systolic 110 mmHg BP Diastolic 76 mmHg 12/02/2009 Weight 219.00 lb Heart Rate 68 /min BP Systolic 108 mmHg BP Diastolic 64 mmHg 08/26/2009 Weight 225.00 lb Heart Rate 88 /min BP Systolic 108 mmHg BP Diastolic 76 mmHg 03/16/2009 Weight 220.00 lb Heart Rate 68 /min BP Systolic 102 mmHg BP Diastolic 70 mmHg Height 60.5 inches 5'0.50" BMI (Body Mass Index) 42.3 kg/m2 10/27/2008 Weight 219.00 lb Heart Rate 68 /min BP Systolic 112 mmHg BP Diastolic 64 mmHg Urine Dipstick - Blood NEGATIVE Urine Dipstick - Protein NEGATIVE Urine Dipstick - Glucose NEGATIVE 10/06/2008 Weight 220.00 lb Heart Rate 64 /min BP Systolic 118 mmHg BP Diastolic 76 mmHg 01/20/2008 Weight 230.00 lb Heart Rate 80 /min BP Systolic 108 mmHg BP Diastolic 64 mmHg Height 60.75 inches 5'0.75"With Shoes BMI (Body Mass Index) 43.8 kg/m2 10/24/2007 Weight 228.00 lb Heart Rate 70 /min BP Systolic 133 mmHg BP Diastolic 73 mmHg Height 60.75 inches 5'0.75"With Shoes BMI (Body Mass Index) 43.4 kg/m2 09/09/2007 Body Temperature 96.8 F Weight 223.00 lb Heart Rate 88 /min BP Systolic 132 mmHg BP Diastolic 84 mmHg Height 60.75 inches 5'0.75"With Shoes BMI (Body Mass Index) 42.5 kg/m2 08/26/2007 Weight 222.00 lb Heart Rate 73 /min BP Systolic 123 mmHg BP Diastolic 69 mmHg Height 60.75 inches 5'0.75"With Shoes BMI (Body Mass Index) 42.3 kg/m2 05/23/2007 Weight 214.00 lb Heart Rate 78 /min BP Systolic 111 mmHg BP Diastolic 67 mmHg Height 61 inches 5'1" BMI (Body Mass Index) 40.4 kg/m2 04/01/2007 Body Temperature 97.6 F Height 61 inches 5'1" 04/01/2007 Body Temperature 97.6 F Weight 209.00 lb Heart Rate 82 /min BP Systolic 115 mmHg BP Diastolic 71 mmHg Height 61 inches 5'1" BMI (Body Mass Index) 39.5 kg/m2 09/16/2006 Weight 213.00 lb Heart Rate 68 /min BP Systolic 112 mmHg BP Diastolic 72 mmHg Height 61 inches 5'1" BMI (Body Mass Index) 40.2 kg/m2 09/02/2006 Body Temperature 98.0 F Weight 216.00 lb Heart Rate 72 /min BP Systolic 110 mmHg BP Diastolic 66 mmHg Height 61 inches 5'1" BMI (Body Mass Index) 40.8 kg/m2 08/05/2006 Weight 219.00 lb Heart Rate 64 /min BP Systolic 124 mmHg BP Diastolic 68 mmHg Height 61 inches 5'1" BMI (Body Mass Index) 41.4 kg/m2 Urine Dipstick - Blood NEGATIVE Urine Dipstick - Protein NEGATIVE Urine Dipstick - Glucose NEGATIVE 05/14/2006 Body Temperature 97.6 F Weight 228.00 lb Heart Rate 78 /min BP Systolic 122 mmHg BP Diastolic 68 mmHg 04/30/2006 Weight 226.00 lb Heart Rate 56 /min BP Systolic 120 mmHg BP Diastolic 80 mmHg 01/25/2006 Weight 216.00 lb Heart Rate 66 /min BP Systolic 134 mmHg BP Diastolic 78 mmHg 10/19/2005 Weight 219.00 lb Heart Rate 80 /min BP Systolic 110 mmHg BP Diastolic 68 mmHg 07/20/2005 Weight 211.00 lb Heart Rate 80 /min BP Systolic 124 mmHg BP Diastolic 72 mmHg 06/29/2005 Weight 208.00 lb Heart Rate 57 /min BP Systolic 106 mmHg BP Diastolic 58 mmHg 06/15/2005 Body Temperature 98.9 F Weight 204.00 lb Heart Rate 90 /min BP Systolic 120 mmHg BP Diastolic 71 mmHg 02/26/2005 Body Temperature 97.3 F Weight 200.00 lb Heart Rate 81 /min BP Systolic 117 mmHg BP Diastolic 67 mmHg Urine Dipstick - Blood NEGATIVE Urine Dipstick - Protein TRACE Urine Dipstick - Glucose NEGATIVE Results Test Date Test Result H/L Range Note CBC With Auto Diff 10/15/2016 WBC 8.3 10*3/uL (4.1-11.0) 1 RBC 4.61 10*6/uL (4.00-5.40) 1 HGB 13.2 g/dL (12.0-16.0) 1 HCT 40.8 % (36.0-47.0) 1 MCV 88.6 fL (80.0-95.0) 1 MCH 28.7 pg (27.0-32.0) 1 MCHC 32.4 g/dL (32.0-36.0) 1 RDW 14.6 % High (10.5-14.5) 1 PLT 203 10*3/uL (150-450) 1 MPV 8.0 fL (7.1-10.7) 1 Neut % 67.1 % (35.0-75.0) 1 Lymph % 21.3 % (16.0-52.0) 1 [place] % 7.5 % (0.0-8.0) 1 Eos % 3.8 % (0.0-5.0) 1 Baso % 0.3 % (0.0-4.0) 1 Neut # 5.5 10*3/uL (1.8-7.7) 1 Lymph # 1.8 10*3/uL (1.2-4.8) 1 [place] # 0.6 10*3/uL (0.0-0.8) 1 Eos # 0.3 10*3/uL (0.0-0.5) 1 Baso # 0.0 10*3/uL (0.0-0.2) 1, 2 Comprehensive Metabolic (CMP) 10/15/2016 Sodium 143 mmol/L (136-145) 1 Potassium 4.4 mmol/L (3.6-5.2) 1 Chloride 103 mmol/L (100-108) 1 Co2 37 mmol/L High (22-31) 1 Urea Nitrogen 18 mg/dL (7-24) 1 Creatinine 0.79 mg/dL (0.60-1.00) 1 BUN/Creat Ratio 22.8 RATIO High (10.0-20.0) 1 Glucose 85 mg/dL (70-99) 1 Calcium 9.0 mg/dL (8.4-10.2) 1 Total Protein 6.0 g/dL Low (6.4-8.2) 1 Albumin 3.1 g/dL Low (3.2-4.5) 1 Globulin 2.9 g/dL (2.7-4.3) 1 Alb/Glob Ratio 1.1 RATIO 1 Alkaline Phosphatase 61 U/L (45-117) 1 Bilirubin,Total 0.3 mg/dL (0.0-1.0) 1 Ast (Sgot) 24 U/L (11-39) 1 Alt (SGPT) 37 U/L (12-78) 1 GFR >60 ml/min/1.73m2 (>59) 1 GFR ( Amer) >60 ml/min/1.73m2 (>59) 1 GFR Interpretation (SEE NOTE) 1, 3 Lipid 10/15/2016 Cholesterol @ 155 mg/dL (0-200) 1 Triglyceride @ 127 mg/dL (30-200) 1 HDL Cholesterol @ 65 mg/dL (>40) 1, 4 Chol/HDL Ratio 2.4 RATIO 1, 5 LDL Chol (Calc) 65 mg/dL (<130) 1, 6 Laboratory test finding 10/15/2016 TSH 3.520 mIU/L (0.360-4.170) 1, 7 Vit D,25 Hydroxy 23 ng/mL Low (31-100) 1, 8 CBC With Auto Diff 10/11/2015 WBC 7.5 10*3/uL (4.1-11.0) 1 RBC 4.69 10*6/uL (4.00-5.40) 1 HGB 13.1 g/dL (12.0-16.0) 1 HCT 41.1 % (36.0-47.0) 1 MCV 87.7 fL (80.0-95.0) 1 MCH 27.8 pg (27.0-32.0) 1 MCHC 31.8 g/dL Low (32.0-36.0) 1 RDW 15.7 % High (10.5-14.5) 1 PLT 222 10*3/uL (150-450) 1 MPV 8.0 fL (7.1-10.7) 1 Neut % 64.8 % (35.0-75.0) 1 Lymph % 26.2 % (16.0-52.0) 1 [place] % 5.5 % (0.0-8.0) 1 Eos % 3.1 % (0.0-5.0) 1 Baso % 0.4 % (0.0-4.0) 1 Neut # 4.8 10*3/uL (1.8-7.7) 1 Lymph # 2.0 10*3/uL (1.2-4.8) 1 [place] # 0.4 10*3/uL (0.0-0.8) 1 Eos # 0.2 10*3/uL (0.0-0.5) 1 Baso # 0.0 10*3/uL (0.0-0.2) 1, 9 Comprehensive Metabolic (CMP) 10/11/2015 Sodium 141 mmol/L (136-145) 1 Potassium 4.4 mmol/L (3.6-5.2) 1 Chloride 102 mmol/L (100-108) 1 Co2 33 mmol/L High (22-31) 1 Anion Gap 6 mmol/L Low (7-16) 1 Urea Nitrogen 15 mg/dL (7-24) 1 Creatinine 0.73 mg/dL (0.60-1.00) 1 BUN/Creat Ratio 20.5 RATIO High (10.0-20.0) 1 Glucose 102 mg/dL High (70-99) 1 Calcium 8.8 mg/dL (8.4-10.2) 1 Total Protein 7.2 g/dL (6.4-8.2) 1 Albumin 3.6 g/dL (3.2-4.5) 1 Globulin 3.6 g/dL (2.7-4.3) 1 Alb/Glob Ratio 1.0 RATIO 1 Alkaline Phosphatase 74 U/L (45-117) 1 Bilirubin,Total 0.5 mg/dL (0.0-1.0) 1 Ast (Sgot) 14 U/L (11-39) 1 Alt (SGPT) 25 U/L (12-78) 1 GFR >60 ml/min/1.73m2 (>59) 1 GFR ( Amer) >60 ml/min/1.73m2 (>59) 1 GFR Interpretation (SEE NOTE) 1, 10 Hemoglobin A1c 10/11/2015 Hemoglobin A1c @ 6.0 % (4.0-6.0) 1 Est Average Glucose 126 mg/dL 1, 11 Lipid 10/11/2015 Cholesterol @ 197 mg/dL (0-200) 1 Triglyceride @ 123 mg/dL (30-200) 1 HDL Cholesterol @ 69 mg/dL (>40) 1, 12 Chol/HDL Ratio 2.9 RATIO 1, 13 LDL Chol (Calc) 103 mg/dL (<130) 1, 14 Laboratory test finding 10/11/2015 Free T4 1.16 ng/dL (0.76-1.46) 1, 15 TSH 2.270 mIU/L (0.360-4.170) 1, 16 Treponema Igg/Igm NEGATIVE (Neg) 1, 17 Lyme Igm/Igg AB NEGATIVE (Neg) 1, 18 Vitamin B12 501 pg/mL (193-986) 1, 19 Vit D,25 Hydroxy 34 ng/mL (31-100) 1, 20 Lipid Treatment 03/11/2015 Cholesterol 219 mg/dL High 50-199 1 Triglycerides 120 mg/dL 30-200 1 HDL 58 mg/dL 35-85 1, 21 Chol/ HDL Ratio 3.8 ratio 3.7-5.6 1 VLDL 24 mg/dL 2-29 1 LDL (Calc) 137 mg/dL High 20-99 1, 22 Alt 17 U/L 3-42 1 Ast 15 U/L 8-42 1 Laboratory test finding 11/09/2014 Esr 27 mm/h (0-30) 23, 24 CRP (C-Reactive) 0.4 mg/dL (0.0-0.5) 23, 25 CPK 67 U/L (26-192) 23, 26 Hemoglobin A1c 11/09/2014 Hemoglobin A1c @ 5.9 % (4.0-6.0) 23 Est Average Glucose 123 mg/dL 23, 27 Laboratory test finding 11/09/2014 TSH 1.980 mIU/L (0.360-4.170) 23, 28 Lipid 11/09/2014 Cholesterol @ 181 mg/dL (0-200) 23 Triglyceride @ 104 mg/dL (30-200) 23 HDL Cholesterol @ 70 mg/dL (>40) 23, 29 Chol/HDL Ratio 2.6 RATIO 23, 30 LDL Chol (Calc) 90 mg/dL (<130) 23, 31 Comprehensive Metabolic (CMP) 11/09/2014 Sodium 145 mmol/L (136-145) 23 Potassium 4.5 mmol/L (3.6-5.2) 23 Chloride 106 mmol/L (100-108) 23 Co2 33 mmol/L High (22-31) 23 Anion Gap 6 mmol/L Low (7-16) 23 Urea Nitrogen 18 mg/dL (7-24) 23 Creatinine 0.7 mg/dL (0.6-1.0) 23 BUN/Creat Ratio 25.7 RATIO High (10.0-20.0) 23 Glucose 98 mg/dL (70-99) 23 Calcium 9.1 mg/dL (8.4-10.2) 23 Total Protein 7.1 g/dL (6.4-8.2) 23 Albumin 3.5 g/dL (3.2-4.5) 23 Globulin 3.6 g/dL (2.7-4.3) 23 Alb/Glob Ratio 1.0 RATIO 23 Alkaline Phosphatase 76 U/L (45-117) 23 Bilirubin,Total 0.3 mg/dL (0.0-1.0) 23 Ast (Sgot) 15 U/L (11-39) 23 Alt (SGPT) 22 U/L (12-78) 23 GFR 89 ml/min/1.73m2 (>59) 23 GFR ( Amer) >90 ml/min/1.73m2 (>59) 23 GFR Interpretation (SEE NOTE) 23, 32 CBC With Auto Diff 11/09/2014 WBC 6.4 10*3/uL (4.1-11.0) 23 RBC 4.47 10*6/uL (4.00-5.40) 23 HGB 13.2 g/dL (12.0-16.0) 23 HCT 40.4 % (36.0-47.0) 23 MCV 90.3 fL (80.0-95.0) 23 MCH 29.6 pg (27.0-32.0) 23 MCHC 32.8 g/dL (32.0-36.0) 23 RDW 14.4 % (10.5-14.5) 23 PLT 219 10*3/uL (150-450) 23 MPV 8.4 fL (7.1-10.7) 23 Neut % 61.5 % (35.0-75.0) 23 Lymph % 30.4 % (16.0-52.0) 23 [place] % 5.1 % (0.0-8.0) 23 Eos % 2.1 % (0.0-5.0) 23 Baso % 0.9 % (0.0-4.0) 23 Neut # 4.0 10*3/uL (1.8-7.7) 23 Lymph # 2.0 10*3/uL (1.2-4.8) 23 [place] # 0.3 10*3/uL (0.0-0.8) 23 Eos # 0.1 10*3/uL (0.0-0.5) 23 Baso # 0.1 10*3/uL (0.0-0.2) 23, 33 CBC With Auto Diff 06/07/2014 WBC 6.2 K/uL 4.1-11.0 34 RBC 4.49 M/uL 4.00-5.40 34 Hemoglobin 13.0 gm/dL 12.0-16.0 34 Hematocrit 41.3 % 36.0-47.0 34 MCV 91.8 fL 80.0-97.0 34 MCH 29.0 pg 27.0-32.0 34 MCHC 31.5 g/dL Low 32.0-36.0 34 RDW 14.9 % High 11.5-14.5 34 PLT Count 182 K/ul 140-400 34 Neutrophil 62.7 % 35.0-75.0 34 Lymphocyte 27.8 % 16.0-52.0 34 Monocyte 6.6 % 2.0-10.0 34 Eosinophil 1.8 % 0.0-5.0 34 Basophil 1.1 % 0.0-4.0 34 Abs Neutrophils 3.9 K/uL 2.1-8.0 34 Abs Lymphocytes 1.7 K/uL 0.8-5.5 34 Abmon 0.4 K/uL 0.1-1.0 34 Abs Eosinophils 0.1 K/uL 0.0-0.5 34 Abs Basophils 0.1 K/uL 0.0-0.3 34 Comprehensive Metabolic 06/07/2014 Sodium 144 Electrolytes <SEE High 134- 142 34, 35 (CMP) NOTE> mmol/L Potassium 4.4 mmol/L 3.5-5.2 34 Chloride 98 mmol/L 97-109 34 Carbon Dioxide 40 Results verif <SEE NOTE> mmol/L High 24-34 34, 36 Glucose 95 mg/dL 70-105 34 BUN 12 mg/dL 6-26 34 Creatinine 0.6 mg/dL 0.5-1.4 34 Calcium 9.5 mg/dL 8.5-10.2 34 Total Protein 6.3 g/dL 6.0-8.0 34 Albumin 3.9 g/dL 3.6-4.9 34 Globulin 2.4 g/dL 2.0-3.5 34 A/G Ratio 1.6 Ratio 1.0-2.2 34 Total Bilirubin 0.4 mg/dL 0.1-1.3 34 Alkaline Phosphatase 45 U/L 24-140 34 Alt 12 U/L 3-42 34 Ast 11 U/L 8-42 34 Anion Gap 10 mmol/L 6-14 34 Yulissa Egfr >60 >60 34, 37 Non Yulissa Egfr >60 >60 34, 38 Lipid 06/07/2014 Cholesterol 188 mg/dL 50-199 34 Triglycerides 109 mg/dL 30-200 34 HDL 66 mg/dL 35-85 34, 39 Chol/ HDL Ratio 2.8 ratio Low 3.7-5.6 34 VLDL 22 mg/dL 2-29 34 LDL (Calc) 100 mg/dL High 20-99 34, 40 Laboratory test finding 06/07/2014 Hemoglobin A1c 5.9 % 4.1-5.9 34 Vit D,25 Hydroxy 58 ng/mL 31-100 34 N Telopeptide Urine -RL 04/27/2014 Hours Of Collection RANDOM Urine Volume RANDOM mL NTX NM Bce/mm Creat 24 41 Creatinine, Urine 250 42 Laboratory test finding 04/27/2014 Urine Culture Microbiology res <SEE 43 NOTE> Laboratory test finding 03/08/2014 Esr 41 mm/hr High 0-20 34 Comprehensive Metabolic 02/02/2014 Sodium 142 mmol/L 134-142 34 (CMP) Potassium 4.3 mmol/L 3.5-5.2 34 Chloride 99 mmol/L 97-109 34 Carbon Dioxide 35 mmol/L High 24-34 34 Glucose 80 mg/dL 70-105 34 BUN 15 mg/dL 6-26 34 Creatinine 0.7 mg/dL 0.5-1.4 34 Calcium 9.0 mg/dL 8.5-10.2 34 Total Protein 6.7 g/dL 6.0-8.0 34 Albumin 3.8 g/dL 3.6-4.9 34 Globulin 2.9 g/dL 2.0-3.5 34 A/G Ratio 1.3 Ratio 1.0-2.2 34 Total Bilirubin 0.5 mg/dL 0.1-1.3 34 Alkaline Phosphatase 60 U/L 24-140 34 Alt 16 U/L 3-42 34 Ast 15 U/L 8-42 34 Anion Gap 12 mmol/L 6-14 34 Yulissa Egfr >60 >60 34, 44 Non Yulissa Egfr >60 >60 34, 45 Lipid 02/02/2014 Cholesterol 211 mg/dL High 50-199 34 Triglycerides 114 mg/dL 30-200 34 HDL 65 mg/dL 35-85 34, 46 Chol/ HDL Ratio 3.2 ratio Low 3.7-5.6 34 VLDL 23 mg/dL 2-29 34 LDL (Calc) 123 mg/dL High 20-99 34, 47 Laboratory test finding 02/02/2014 Hemoglobin A1c 5.9 % 4.1-5.9 34 TSH 2.74 uIU/mL 0.34-5.60 34 Vit D,25 Hydroxy 40 ng/mL 31-100 34 CPK 47 U/L 12-199 34 CBC With Auto Diff 02/02/2014 WBC 7.0 K/uL 4.1-11.0 34 RBC 4.50 M/uL 4.00-5.40 34 Hemoglobin 13.2 gm/dL 12.0-16.0 34 Hematocrit 40.5 % 36.0-47.0 34 MCV 89.9 fL 80.0-97.0 34 MCH 29.3 pg 27.0-32.0 34 MCHC 32.6 g/dL 32.0-36.0 34 RDW 14.2 % 11.5-14.5 34 PLT Count 199 K/ul 140-400 34 Neutrophil 68.3 % 35.0-75.0 34 Lymphocyte 22.8 % 16.0-52.0 34 Monocyte 6.0 % 2.0-10.0 34 Eosinophil 2.4 % 0.0-5.0 34 Basophil 0.5 % 0.0-4.0 34 Abs Neutrophils 4.8 K/uL 2.1-8.0 34 Abs Lymphocytes 1.6 K/uL 0.8-5.5 34 Abmon 0.4 K/uL 0.1-1.0 34 Abs Eosinophils 0.2 K/uL 0.0-0.5 34 Abs Basophils 0.0 K/uL 0.0-0.3 34 Laboratory test finding 02/02/2014 CRP (C-Reactive) 5.92 mg/dL High 0.00- 0.75 34 Esr 58 mm/hr High 0-20 34 Rheumatoid Factor 11.4 IU/mL High 0.0-10.0 34 Sivan Screen Neg Neg 34 Laboratory test finding 02/02/2014 CCP Antibody Igg 5 34, 48 Comprehensive Metabolic (CMP) 08/24/2013 Sodium 140 mmol/L 134-142 34 Potassium 4.2 mmol/L 3.5-5.2 34 Chloride 101 mmol/L 97-109 34 Carbon Dioxide 37 Consistent wi <SEE NOTE> mmol/L High 24-34 34, 49 Glucose 91 mg/dL 70-105 34 BUN 13 mg/dL 6-26 34 Creatinine 0.7 mg/dL 0.5-1.4 34 Calcium 8.9 mg/dL 8.5-10.2 34 Total Protein 6.2 g/dL 6.0-8.0 34 Albumin 3.6 g/dL 3.6-4.9 34 Globulin 2.6 g/dL 2.0-3.5 34 A/G Ratio 1.4 Ratio 1.0-2.2 34 Total Bilirubin 0.3 mg/dL 0.1-1.3 34 Alkaline Phosphatase 66 U/L 24-140 34 Alt 31 U/L 3-42 34 Ast 27 U/L 8-42 34 Anion Gap 6 mmol/L 6-14 34 Yulissa Egfr >60 >60 34, 50 Non Yulissa Egfr >60 >60 34, 51 Laboratory test finding 08/24/2013 Hemoglobin A1c 6.1 % High 4.1-5.9 34 Lipid 08/24/2013 Cholesterol 157 mg/dL 50-199 34 Triglycerides 89 mg/dL 30-200 34 HDL 49 mg/dL 35-85 34, 52 Chol/ HDL Ratio 3.2 ratio Low 3.7-5.6 34 VLDL 18 mg/dL 2-29 34 LDL (Calc) 90 mg/dL 20-99 34, 53 Laboratory test finding 08/24/2013 Vit D,25 Hydroxy 48 ng/mL 31-100 34 TSH 2.71 uIU/mL 0.34-5.60 34 Esr 45 mm/hr High 0-20 34 Laboratory test finding 04/24/2013 TSH 3.15 uIU/mL 0.34-5.60 34 Free T4 0.90 ng/dL 0.50-1.60 34 Vit D,25 Hydroxy 40 ng/mL 31-100 34 Lipid 04/24/2013 Cholesterol 191 mg/dL 50-199 34 Triglycerides 130 mg/dL 30-200 34 HDL 58 mg/dL 35-85 34, 54 Chol/ HDL Ratio 3.3 ratio Low 3.7-5.6 34 VLDL 26 mg/dL 2-29 34 LDL (Calc) 107 mg/dL High 20-99 34, 55 Laboratory test finding 04/24/2013 Hemoglobin A1c 5.9 % 4.1-5.9 34 Comprehensive Metabolic (CMP) 04/24/2013 Sodium 142 mmol/L 134-142 34 Potassium 4.4 mmol/L 3.5-5.2 34 Chloride 102 mmol/L 97-109 34 Carbon Dioxide 36 mmol/L High 24-34 34 Glucose 73 mg/dL 70-105 34 BUN 15 mg/dL 6-26 34 Creatinine 0.7 mg/dL 0.5-1.4 34 Calcium 9.3 mg/dL 8.5-10.2 34 Total Protein 6.6 g/dL 6.0-8.0 34 Albumin 4.1 g/dL 3.6-4.9 34 Globulin 2.5 g/dL 2.0-3.5 34 A/G Ratio 1.6 Ratio 1.0-2.2 34 Total Bilirubin 0.4 mg/dL 0.1-1.3 34 Alkaline Phosphatase 56 U/L 24-140 34 Alt 14 U/L 3-42 34 Ast 14 U/L 8-42 34 Anion Gap 8 mmol/L 6-14 34 Yulissa Egfr >60 >60 34, 56 Non Yulissa Egfr >60 >60 34, 57 CBC With Auto Diff 04/24/2013 WBC 6.0 K/uL 4.1-11.0 34 RBC 4.37 M/uL 4.00-5.40 34 Hemoglobin 12.5 gm/dL 12.0-16.0 34 Hematocrit 38.3 % 36.0-47.0 34 MCV 87.8 fL 80.0-97.0 34 MCH 28.6 pg 27.0-32.0 34 MCHC 32.6 g/dL 32.0-36.0 34 RDW 14.5 % 11.5-14.5 34 PLT Count 179 K/ul 140-400 34 Neutrophil 56.1 % 35.0-75.0 34 Lymphocyte 34.4 % 16.0-52.0 34 Monocyte 6.0 % 2.0-10.0 34 Eosinophil 2.8 % 0.0-5.0 34 Basophil 0.7 % 0.0-4.0 34 Abs Neutrophils 3.4 K/uL 2.1-8.0 34 Abs Lymphocytes 2.1 K/uL 0.8-5.5 34 Abmon 0.4 K/uL 0.1-1.0 34 Abs Eosinophils 0.2 K/uL 0.0-0.5 34 Abs Basophils 0.0 K/uL 0.0-0.3 34 CBC With Auto Diff 08/15/2012 WBC 7.3 K/uL 4.1-11.0 34 RBC 4.40 M/uL 4.00-5.40 34 Hemoglobin 13.0 gm/dL 12.0-16.0 34 Hematocrit 40.5 % 36.0-47.0 34 MCV 92.0 fL 80.0-97.0 34 MCH 29.6 pg 27.0-32.0 34 MCHC 32.2 g/dL 32.0-36.0 34 RDW 13.9 % 11.5-14.5 34 PLT Count 194 K/ul 140-400 34 Neutrophil 61.8 % 35.0-75.0 34 Lymphocyte 29.4 % 16.0-52.0 34 Monocyte 6.0 % 2.0-10.0 34 Eosinophil 1.8 % 0.0-5.0 34 Basophil 1.0 % 0.0-4.0 34 Abs Neutrophils 4.5 K/uL 2.1-8.0 34 Abs Lymphocytes 2.2 K/uL 0.8-5.5 34 Abs Monocytes 0.4 K/uL 0.1-1.0 34 Abs Eosinophils 0.1 K/uL 0.0-0.5 34 Abs Basophils 0.1 K/uL 0.0-0.3 34 Comprehensive Metabolic (CMP) 08/15/2012 Sodium 142 mmol/L 134-142 34 Potassium 4.8 mmol/L 3.5-5.2 34 Chloride 100 mmol/L 97-109 34 Carbon Dioxide 39 Electrolytes <SEE NOTE> mmol/L High 24-34 34, 58 Glucose 74 mg/dL 70-105 34 BUN 17 mg/dL 6-26 34 Creatinine 0.8 mg/dL 0.5-1.4 34 Calcium 9.9 mg/dL 8.5-10.2 34 Total Protein 6.5 g/dL 6.0-8.0 34 Albumin 4.0 g/dL 3.6-4.9 34 Globulin 2.5 g/dL 2.0-3.5 34 A/G Ratio 1.6 Ratio 1.0-2.2 34 Total Bilirubin 0.4 mg/dL 0.1-1.3 34 Alkaline Phosphatase 62 U/L 24-140 34 Alt 14 U/L 3-42 34 Ast 15 U/L 8-42 34 Anion Gap 8 mmol/L 6-14 34 Yulissa Egfr >60 >60 34, 59 Non Yulissa Egfr >60 >60 34, 60 Laboratory test finding 08/15/2012 Hemoglobin A1c 6.0 % High 4.1-5.9 34 Lipid 08/15/2012 Cholesterol 180 mg/dL 50-199 34 Triglycerides 148 mg/dL 30-200 34 HDL 62 mg/dL 35-85 34, 61 Chol/ HDL Ratio 2.9 ratio Low 3.7-5.6 34 VLDL 30 mg/dL High 2-29 34 LDL (Calc) 88 mg/dL 20-129 34, 62 Non HDL Cholesterol 118 mg/dL 20-129 34, 63 Laboratory test finding 08/15/2012 Vit D,25 Hydroxy 50 ng/mL 31-100 34 Comprehensive Metabolic (CMP) 04/11/2012 Sodium 140 mmol/L 134-142 34 Potassium 4.3 mmol/L 3.5-5.2 34 Chloride 98 mmol/L 97-109 34 Carbon Dioxide 36 mmol/L High 24-34 34 Glucose 97 mg/dL 70-105 34 BUN 15 mg/dL 6-26 34 Creatinine 0.7 mg/dL 0.5-1.4 34 Calcium 9.7 mg/dL 8.5-10.2 34 Total Protein 6.8 g/dL 6.0-8.0 34 Albumin 4.4 g/dL 3.6-4.9 34 Globulin 2.4 g/dL 2.0-3.5 34 A/G Ratio 1.8 Ratio 1.0-2.2 34 Total Bilirubin 0.4 mg/dL 0.1-1.3 34 Alkaline Phosphatase 59 U/L 24-140 34 Alt 13 U/L 3-42 34 Ast 14 U/L 8-42 34 Anion Gap 10 mmol/L 6-14 34 Yulissa Egfr >60 >60 34, 64 Non Yulissa Egfr >60 >60 34, 65 Lipid 04/11/2012 Cholesterol 183 mg/dL 50-199 34 Triglycerides 125 mg/dL 30-200 34 HDL 60 mg/dL 35-85 34, 66 Chol/ HDL Ratio 3.1 ratio Low 3.7-5.6 34 VLDL 25 mg/dL 2-29 34 LDL (Calc) 98 mg/dL 20-129 34, 67 Laboratory test finding 04/11/2012 Hemoglobin A1c 6.2 % High 4.1-5.9 34 TSH 1.64 uIU/mL 0.34-5.60 34 Laboratory test finding 02/05/2012 [facility] Pap SEE NOTE 68 Laboratory test finding 11/20/2011 Vit D,25 Hydroxy 59 ng/mL 31-100 34 Hemoglobin A1c 6.0 % High 4.1-5.9 34 Lipid 11/20/2011 Cholesterol 207 mg/dL High 50-199 34 Triglycerides 120 mg/dL 30-200 34 HDL 59 mg/dL 35-85 34, 69 Chol/ HDL Ratio 3.5 ratio Low 3.7-5.6 34 VLDL 24 mg/dL 2-29 34 LDL (Calc) 124 mg/dL 20-129 34, 70 Comprehensive Metabolic (CMP) 11/20/2011 Sodium 142 mmol/L 134-142 34 Potassium 4.2 mmol/L 3.5-5.2 34 Chloride 97 mmol/L 97-109 34 Carbon Dioxide 40 Electrolytes <SEE NOTE> mmol/L High 24-34 34, 71 Glucose 126 mg/dL High 70-105 34 BUN 13 mg/dL 6-26 34 Creatinine 0.7 mg/dL 0.5-1.4 34 Calcium 9.5 mg/dL 8.5-10.2 34 Total Protein 6.6 g/dL 6.0-8.0 34 Albumin 4.0 g/dL 3.6-4.9 34 Globulin 2.6 g/dL 2.0-3.5 34 A/G Ratio 1.5 Ratio 1.0-2.2 34 Total Bilirubin 0.5 mg/dL 0.1-1.3 34 Alkaline Phosphatase 56 U/L 24-140 34 Alt 15 U/L 3-42 34 Ast 16 U/L 8-42 34 Anion Gap 9 mmol/L 6-14 34 Yulissa Egfr >60 >60 34, 72 Non Yulissa Egfr >60 >60 34, 73 CBC With Auto Diff 11/20/2011 WBC 6.4 K/uL 4.1-11.0 34 RBC 4.40 M/uL 4.00-5.40 34 Hemoglobin 13.5 gm/dL 12.0-16.0 34 Hematocrit 40.3 % 36.0-47.0 34 MCV 91.6 fL 80.0-97.0 34 MCH 30.6 pg 27.0-32.0 34 MCHC 33.5 g/dL 32.0-36.0 34 RDW 14.1 % 11.5-14.5 34 PLT Count 187 K/ul 140-400 34 Neutrophil 55.1 % 35.0-75.0 34 Lymphocyte 34.1 % 16.0-52.0 34 Monocyte 7.3 % 2.0-10.0 34 Eosinophil 2.5 % 0.0-5.0 34 Basophil 1.0 % 0.0-4.0 34 Abs Neutrophils 3.5 K/uL 2.1-8.0 34 Abs Lymphocytes 2.2 K/uL 0.8-5.5 34 Abs Monocytes 0.5 K/uL 0.1-1.0 34 Abs Eosinophils 0.2 K/uL 0.0-0.5 34 Abs Basophils 0.1 K/uL 0.0-0.3 34 CBC With Auto Diff 04/27/2011 WBC 8.3 K/uL 4.1-11.0 34 RBC 4.83 M/uL 4.00-5.40 34 Hemoglobin 15.0 gm/dL 12.0-16.0 34 Hematocrit 44.2 % 36.0-47.0 34 MCV 91.4 fL 80.0-97.0 34 MCH 31.1 pg 27.0-32.0 34 MCHC 34.0 g/dL 32.0-36.0 34 RDW 14.2 % 11.5-14.5 34 PLT Count 193 K/ul 140-400 34 Neutrophil 75.3 % High 35.0-75.0 34 Lymphocyte 17.9 % 16.0-52.0 34 Monocyte 5.1 % 2.0-10.0 34 Eosinophil 1.5 % 0.0-5.0 34 Basophil 0.2 % 0.0-4.0 34 Abs Neutrophils 6.2 K/uL 2.1-8.0 34 Abs Lymphocytes 1.5 K/uL 0.8-5.5 34 Abs Monocytes 0.4 K/uL 0.1-1.0 34 Abs Eosinophils 0.1 K/uL 0.0-0.5 34 Abs Basophils 0.0 K/uL 0.0-0.3 34 Comprehensive Metabolic (CMP) 04/27/2011 Sodium 143 mmol/L 135-144 34 Potassium 4.6 mmol/L 3.6-5.2 34 Chloride 102 mmol/L 97-110 34 Carbon Dioxide 32 mmol/L 23-32 34 Glucose 108 mg/dL High 70-105 34 BUN 12 mg/dL 6-22 34 Creatinine 0.8 mg/dL 0.5-1.3 34 Calcium 9.2 mg/dL 8.6-10.2 34 BUN/CR 15 ratio 12-20 34 Total Protein 6.8 g/dL 5.8-7.8 34 Albumin 3.6 g/dL 3.5-4.8 34 Globulin 3.2 g/dL 2.0-3.5 34 A/G Ratio 1.1 Ratio 1.0-2.2 34 Total Bilirubin 0.5 mg/dL 0.3-1.2 34 Alkaline Phosphatase 66 U/L 24-140 34 Alt 22 U/L 5-45 34 Ast 22 U/L 12-40 34 Anion Gap 14 mmol/L 8-16 34 Non Yulissa Egfr >60 >60 34, 74 Yulissa Egfr >60 >60 34, 75 Laboratory test finding 04/27/2011 TSH 1.68 uIU/mL 0.34-5.60 34 Lipid 04/27/2011 Cholesterol 198 mg/dL 50-199 34 Triglycerides 118 mg/dL 10-150 34 HDL 55 mg/dL 35-85 34, 76 Chol/ HDL Ratio 3.6 ratio Low 3.7-5.6 34 VLDL 24 mg/dL 2-29 34 LDL (Calc) 119 mg/dL 20-129 34, 77 Comprehensive Metabolic (CMP) 10/23/2010 Sodium 144 mmol/L 135-144 34 Potassium 4.1 mmol/L 3.6-5.2 34 Chloride 104 mmol/L 97-110 34 Carbon Dioxide 30 mmol/L 23-32 34 Glucose 90 mg/dL 70-105 34 BUN 17 mg/dL 6-22 34 Creatinine 0.8 mg/dL 0.5-1.3 34 Calcium 9.4 mg/dL 8.6-10.2 34 BUN/CR 21 ratio High 12-20 34 Total Protein 6.7 g/dL 5.8-7.8 34 Albumin 3.6 g/dL 3.5-4.8 34 Globulin 3.1 g/dL 2.0-3.5 34 A/G Ratio 1.2 Ratio 1.0-2.2 34 Total Bilirubin 0.4 mg/dL 0.3-1.2 34 Alkaline Phosphatase 64 U/L 24-140 34 Alt 12 U/L 5-45 34 Ast 14 U/L 12-40 34 Anion Gap 14 mmol/L 8-16 34 Non Yulissa Egfr >60 >60 34, 78 Yulissa Egfr >60 >60 34, 79 Hemoglobin A1c With Est Glucos 10/23/2010 Hemoglobin A1c 6.2 % 4.1-6.[address] Glucose 131 71-140 34 CBC With Auto Diff 10/23/2010 WBC 8.9 K/uL 4.1-11.0 34 RBC 4.39 M/uL 4.00-5.40 34 Hemoglobin 13.2 gm/dL 12.0-16.0 34 Hematocrit 39.7 % 36.0-47.0 34 MCV 90.4 fL 80.0-97.0 34 MCH 30.1 pg 27.0-32.0 34 MCHC 33.3 g/dL 32.0-36.0 34 RDW 14.2 % 11.5-14.5 34 PLT Count 265 K/ul 140-400 34 Neutrophil 61.2 % 35.0-75.0 34 Lymphocyte 32.7 % 16.0-52.0 34 Monocyte 5.1 % 2.0-10.0 34 Eosinophil 0.4 % 0.0-5.0 34 Basophil 0.6 % 0.0-4.0 34 Abs Neutrophils 5.4 K/uL 2.1-8.0 34 Abs Lymphocytes 2.9 K/uL 0.8-5.5 34 Abs Monocytes 0.5 K/uL 0.1-1.0 34 Abs Eosinophils 0.0 K/uL 0.0-0.5 34 Abs Basophils 0.1 K/uL 0.0-0.3 34 Lipid 10/23/2010 Cholesterol 140 mg/dL 50-199 34 Triglycerides 92 mg/dL 10-150 34 HDL 42 mg/dL 35-85 34, 80 Chol/ HDL Ratio 3.3 ratio Low 3.7-5.6 34 VLDL 18 mg/dL 2-29 34 LDL (Calc) 80 mg/dL 20-129 34, 81 Laboratory test finding 10/23/2010 Vit D,25 Hydroxy 36 ng/mL 31-100 34 TSH 1.71 uIU/mL 0.34-5.60 34 CPK 90 U/L 38-234 34 Magnesium 2.1 mg/dL 1.8-2.5 34 Lipid TX Panel 12/02/2009 Ast 20 U/L 12-40 82 Alt 20 U/L 5-45 82 Cholesterol 160 mg/dL 50-199 82, 83 Triglycerides 92 mg/dL 10-150 82 HDL 55 mg/dL 35-85 82, 84 LDL (Calc) 87 mg/dL 20-129 82, 85 Chol/HDL Ratio 2.9 Ratio Low 3.7-5.6 82, 86 VLDL 18 mg/dL 2-29 82 Basic (BMP) 12/02/2009 Sodium 142 mmol/L 135-144 82 Potassium 4.3 mmol/L 3.6-5.2 82 Chloride 105 mmol/L 97-110 82 Carbon Dioxide 29 mmol/L 23-32 82 Glucose 87 mg/dL 70-105 82 BUN 16 mg/dL 6-22 82 Creatinine 0.8 mg/dL 0.5-1.3 82 BUN/CR 20 Ratio 82 Anion Gap 12 mmol/L 8-16 82 Calcium 9.4 mg/dL 8.6-10.2 82 GFR Calculation > 60 mL/min 60-175 82, 87 GFR For > 60 mL/min 60-175 82, 88 Laboratory test finding 12/02/2009 Hemoglobin A1c 5.9 % 4.1-6.5 82 Vitamin D, 25 Hydroxy 26 ng/mL Low 31-100 82 Lipid Panel 08/26/2009 Cholesterol 218 mg/dL High 50-199 89 Triglycerides 122 mg/dL 10-150 89 HDL 67 mg/dL 35-85 89, 90 Chol/HDL Ratio 3.3 Ratio Low 3.7-5.6 89, 91 VLDL 24 mg/dL 2-29 89 LDL (Calc) 127 mg/dL 20-129 89, 92 CMP 08/26/2009 Sodium 140 mmol/L 135-144 89 Potassium 4.7 mmol/L 3.6-5.2 89 Chloride 103 mmol/L 97-110 89 Carbon Dioxide 30 mmol/L 23-32 89 Glucose 89 mg/dL 70-105 89 BUN 16 mg/dL 6-22 89 Creatinine 0.8 mg/dL 0.5-1.3 89 BUN/CR 20 Ratio 89 Calcium 9.7 mg/dL 8.6-10.2 89 Total Protein 6.5 g/dL 5.8-7.8 89 Albumin 3.8 g/dL 3.5-4.8 89 Globulin 2.7 g/dL 2.0-3.5 89 A/G Ratio 1.4 Ratio 1.0-2.2 89 Total Bilirubin 0.4 mg/dL 0.3-1.2 89 Alkaline Phosphatase 55 U/L 24-140 89 Alt 22 U/L 5-45 89 Ast 21 U/L 12-40 89 Anion Gap 12 mmol/L 8-16 89 GFR Calculation > 60 mL/min 60-175 89, 93 GFR For > 60 mL/min 60-175 89, 94 Laboratory test finding 08/26/2009 Hemoglobin A1c 6.1 % 4.1-6.5 89 CBC With Auto Diff 03/16/2009 WBC 7.9 K/ul 4.0-10.9 95 RBC 4.78 M/ul 4.20-5.40 95 Hemoglobin 14.4 GM/dl 12.5-16.0 95 Hematocrit 42.7 % 36.0-47.0 95 MCV 89.3 FL 80.0-97.0 95 MCH 30.2 pg 27.0-31.0 95 MCHC 33.8 g/dL 32.0-36.0 95 RDW 14.1 % 11.5-14.5 95 Platelet Count 243 K/ul 140-440 95 Neutrophils 65.1 % 50-70 95 Lymphocytes 27.1 % 20-44 95 Monocytes 5.2 % 2-9 95 Eosinophil 1.9 % 0-4 95 Basophil 0.7 % 0-2 95 Absolute Neutrophils 5.1 K/ul 2.05-7.63 95 Absolute Lymphocytes 2.1 K/ul 0.8-4.8 95 Absolute Monocytes 0.4 K/ul 0.1-1.0 95 Absolute Eosinophils 0.1 K/ul 0.1-0.5 95 Absolute Basophils 0.1 K/ul 0.0-0.3 95 Hematology Comment (Comm2) N/A 95 CMP 03/16/2009 Sodium 143 mmol/L 135-144 95 Potassium 4.8 mmol/L 3.6-5.2 95 Chloride 104 mmol/L 97-110 95 Carbon Dioxide 32 mmol/L 23-32 95 Glucose 100 mg/dL 70-105 95 BUN 15 mg/dL 6-22 95 Creatinine 0.9 mg/dL 0.5-1.3 95 BUN/CR 17 Ratio 12.0-20.0 95 Calcium 9.5 mg/dL 8.6-10.2 95 Total Protein 6.7 g/dL 5.8-7.8 95 Albumin 4.1 g/dL 3.5-4.8 95 Globulin 2.6 g/dL 2.0-3.5 95 A/G Ratio 1.6 Ratio 1.0-2.2 95 Total Bilirubin 0.7 mg/dL 0.3-1.2 95, 96 Alkaline Phosphatase 60 U/L 24-140 95 Alt 25 U/L 5-45 95 Ast 21 U/L 12-40 95 Anion Gap 12 mmol/L 8-16 95 GFR Calculation > 60 mL/min 60-175 95, 97 GFR For > 60 mL/min 60-175 95, 98 Laboratory test finding 03/16/2009 [facility] Pap - [place] (SEE NOTE) 99 Lipid Panel 03/16/2009 Cholesterol 181 mg/dL 50-199 95 Triglycerides 176 mg/dL High 10-150 95 HDL 55 mg/dL 35-85 95, 100 Chol/HDL Ratio 3.3 Ratio Low 3.7-5.6 95, 101 VLDL 35 mg/dL High 2-29 95 LDL (Calc) 91 mg/dL 20-129 95, 102 Laboratory test finding 03/16/2009 Hemoglobin A1c 6.1 % 4.1-6.5 95 CMP 10/06/2008 Sodium 140 mmol/L 135-144 103 Potassium 4.4 mmol/L 3.6-5.2 103 Chloride 104 mmol/L 97-110 103 Carbon Dioxide 29 mmol/L 23-33 103 Glucose 101 mg/dL 70-105 103 BUN 10 mg/dL 6-22 103 Creatinine 0.9 mg/dL 0.5-1.3 103 BUN/CR 11 Ratio Low 12.0-20.0 103 Calcium 9.7 mg/dL 8.6-10.2 103 Total Protein 7.2 g/dL 5.8-7.8 103 Albumin 4.2 g/dL 3.5-4.8 103 Globulin 3.0 g/dL 2.0-3.5 103 A/G Ratio 1.4 Ratio 1.0-2.2 103 Total Bilirubin 1.1 mg/dL 0.3-1.2 103 Alkaline Phosphatase 64 U/L 24-140 103 Alt 30 U/L 4-45 103 Ast 29 U/L 12-40 103 Anion Gap 11 mmol/L 8-16 103 GFR Calculation > 60 mL/min 60-175 103, 104 GFR For > 60 mL/min 60-175 103, 105 Lipid Panel 10/06/2008 Cholesterol 166 mg/dL 50-199 103 Triglycerides 119 mg/dL 10-150 103 HDL 58 mg/dL 35-85 103, 106 Chol/HDL Ratio 2.9 Ratio Low 3.7-5.6 103, 107 VLDL 24 mg/dL 2-29 103 LDL (Calc) 84 mg/dL 20-129 103, 108 Laboratory test finding 10/06/2008 TSH 2.90 uIU/ml 0.34-5.60 103 Vitamin D, 25 Hydroxy 57 ng/mL 31-100 103 CBC With Auto Diff 10/06/2008 WBC 7.9 K/ul 4.0-10.9 103 RBC 4.88 M/ul 4.20-5.40 103 Hemoglobin 14.8 GM/dl 12.5-16.0 103 Hematocrit 42.9 % 36.0-47.0 103 MCV 87.9 FL 80.0-97.0 103 MCH 30.4 pg 27.0-31.0 103 MCHC 34.6 g/dL 32.0-36.0 103 RDW 13.8 % 11.5-14.5 103 Platelet Count 248 K/ul 140-440 103 Neutrophils 65.8 % 50-70 103 Lymphocytes 27.9 % 20-44 103 Monocytes 4.9 % 2-9 103 Eosinophil 0.6 % 0-4 103 Basophil 0.8 % 0-2 103 Absolute Neutrophils 5.2 K/ul 2.05-7.63 103 Absolute Lymphocytes 2.2 K/ul 0.8-4.8 103 Absolute Monocytes 0.4 K/ul 0.1-1.0 103 Absolute Eosinophils 0.0 K/ul Low 0.1-0.5 103 Absolute Basophils 0.1 K/ul 0.0-0.3 103 Hematology Comment (Comm2) N/A 103 Lipid TX Panel 01/20/2008 Ast 23 U/L 12-40 Alt 25 U/L 4-45 Cholesterol 194 mg/dL 50-199 Triglycerides 171 mg/dL High 10-150 HDL 57 mg/dL 35-85 109 LDL (Calc) 103 mg/dL 20-129 110 Chol/HDL Ratio 3.4 Ratio 111 VLDL 34 mg/dL Basic (BMP) 01/20/2008 Sodium 140 mmol/L 135-144 112 Potassium 4.4 mmol/L 3.6-5.2 112 Chloride 100 mmol/L 97-110 112 Carbon Dioxide 27 mmol/L 23-33 112 Glucose 87 mg/dL 70-105 112 BUN 12 mg/dL 6-22 112 Creatinine 0.8 mg/dL 0.5-1.3 112 BUN/CR 15 Ratio 12.0-20.0 112 Anion Gap 17 mmol/L High 8-16 112 Calcium 9.6 mg/dL 8.6-10.2 112 GFR Calculation > 60 mL/min 112, 113 GFR For > 60 mL/min 112, 114 Laboratory test finding 08/26/2007 Vitamin D, 25 Hydroxy 35 ng/mL 19-58 Vitamin B12 331 pg/mL 180-914 CPK 119 U/L 38-234 Magnesium 2.0 mg/dL 1.8-2.5 Urine Culture NO GROWTH CBC With Auto Diff 07/25/2007 WBC 6.6 K/ul 4.0-10.9 112 RBC 4.96 M/ul 4.20-5.40 112 Hemoglobin 14.8 GM/dl 12.5-16.0 112 Hematocrit 44.5 % 36.0-47.0 112 MCV 89.7 FL 80.0-97.0 112 MCH 29.9 pg 27.0-31.0 112 MCHC 33.4 g/dL 32.0-36.0 112 RDW 12.8 % 11.5-14.5 112 Platelet Count 243 K/ul 140-440 112 Neutrophils 59.8 % 50-70 112 Lymphocytes 31.9 % 20-44 112 Monocytes 5.5 % 2-9 112 Eosinophil 2.2 % 0-4 112 Basophil 0.6 % 0-2 112 Absolute Neutrophils 4.0 K/ul 2.05-7.63 112 Absolute Lymphocytes 2.1 K/ul 0.8-4.8 112 Absolute Monocytes 0.4 K/ul 0.1-1.0 112 Absolute Eosinophils 0.1 K/ul 0.1-0.5 112 Absolute Basophils 0.0 K/ul Low 0.1-0.3 112 CMP 07/25/2007 Sodium 141 mmol/L 135-144 112 Potassium 4.7 mmol/L 3.6-5.2 112 Chloride 104 mmol/L 97-110 112 Carbon Dioxide 30 mmol/L 23-33 112 Glucose 98 mg/dL 70-105 112 BUN 14 mg/dL 6-22 112 Creatinine 0.8 mg/dL 0.5-1.3 112 BUN/CR 18 Ratio 12.0-20.0 112 Calcium 9.4 mg/dL 8.6-10.2 112 Total Protein 6.5 g/dL 5.8-7.8 112 Albumin 3.7 g/dL 3.5-4.8 112 Globulin 2.8 g/dL 2.0-3.5 112 A/G Ratio 1.3 Ratio 1.0-2.2 112 Total Bilirubin 0.8 mg/dL 0.3-1.2 112 Alkaline Phosphatase 47 U/L 24-140 112 Alt 24 U/L 4-45 112 Ast 23 U/L 12-40 112 Anion Gap 12 mmol/L 8-16 112 GFR Calculation > 60 mL/min 112, 115 GFR For > 60 mL/min 112, 116 Lipid Panel 07/25/2007 Cholesterol 195 mg/dL 50-199 112 Triglycerides 142 mg/dL 10-150 112 HDL 56 mg/dL 35-85 112 Chol/HDL Ratio 3.5 Ratio 112 VLDL 28 mg/dL 112 LDL (Calc) 111 mg/dL 20-129 112 Laboratory test finding 07/25/2007 TSH 2.85 uIU/ml 0.34-5.60 112 Lipid TX Panel 09/16/2006 Ast 23 U/L 12-40 Alt 23 U/L 4-45 Cholesterol 161 mg/dL 50-199 Triglycerides 162 mg/dL High 10-150 HDL 46 mg/dL 35-85 LDL (Calc) 83 mg/dL 20-129 Chol/HDL Ratio 3.5 Ratio VLDL 32 mg/dL CBC With Auto Diff 08/05/2006 WBC 6.3 K/ul 4.0-10.9 112 RBC 5.08 M/ul 4.20-5.40 112 Hemoglobin 15.4 GM/dl 12.5-16.0 112 Hematocrit 44.9 % 36.0-47.0 112 MCV 88.5 FL 80.0-97.0 112 MCH 30.2 pg 27.0-31.0 112 MCHC 34.2 g/dL 32.0-36.0 112 RDW 12.3 % 11.5-14.5 112 Platelet Count 255 K/ul 140-440 112 Neutrophils 51.9 % 50-70 112 Lymphocytes 40.0 % 20-44 112 Monocytes 5.8 % 2-9 112 Eosinophil 1.3 % 0-4 112 Basophil 1.0 % 0-2 112 Absolute Neutrophils 3.2 K/ul 2.05-7.63 112 Absolute Lymphocytes 2.5 K/ul 0.8-4.8 112 Absolute Monocytes 0.4 K/ul 0.1-1.0 112 Absolute Eosinophils 0.1 K/ul 0.1-0.5 112 Absolute Basophils 0.1 K/ul 0.1-0.3 112 CMP 08/05/2006 Sodium 141 mmol/L 135-144 112 Potassium 3.9 mmol/L 3.6-5.2 112 Chloride 102 mmol/L 97-110 112 Carbon Dioxide 28 mmol/L 23-33 112 Glucose 74 mg/dL 70-105 112 BUN 19 mg/dL 6-22 112 Creatinine 1.1 mg/dL 0.5-1.3 112 BUN/CR 17 Ratio 12.0-20.0 112 Calcium 9.2 mg/dL 8.6-10.2 112 Total Protein 7.0 g/dL 5.8-7.8 112 Albumin 3.9 g/dL 3.5-4.8 112 Globulin 3.1 g/dL 2.0-3.5 112 A/G Ratio 1.3 Ratio 1.0-2.2 112 Total Bilirubin 0.5 mg/dL 0.3-1.2 112 Alkaline Phosphatase 60 U/L 24-140 112 Alt 25 U/L 4-45 112 Ast 25 U/L 12-40 112 Anion Gap 15 mmol/L 8-16 112 GFR White Male 72 112 GFR White Female 54 112 GFR Black Male 88 112 GFR Black Female 65 112 GFR Guidelines 0 112, 117 Lipid Panel 08/05/2006 Cholesterol 223 mg/dL High 50-199 112 Triglycerides 135 mg/dL 10-150 112 HDL 48 mg/dL 35-85 112 Chol/HDL Ratio 4.7 Ratio 112 VLDL 27 mg/dL 112 LDL (Calc) 148 mg/dL High 20-129 112 Laboratory test 08/05/2006 [facility], [facility] - SEE REFERENCE [place] 118 finding [place] <SEE NOTE> Lipid TX Panel 01/25/2006 Ast 22 U/L 12-40 112 Alt 24 U/L 4-45 112 Cholesterol 154 mg/dL 50-199 112 Triglycerides 127 mg/dL 10-150 112 HDL 49 mg/dL 35-85 112 LDL (Calc) 80 mg/dL 20-129 112 Chol/HDL Ratio 3.1 Ratio 112 VLDL 25 mg/dL 112 Laboratory test finding 07/20/2005 TSH 3.07 uIU/ml 0.50-6.00 112 Lipid Panel 07/20/2005 Cholesterol 164 mg/dL 50-199 112 Triglycerides 100 mg/dL 10-150 112 HDL 55 mg/dL 35-85 112 Chol/HDL Ratio 3.0 Ratio 112 VLDL 20 mg/dL 112 LDL (Calc) 89 mg/dL 20-129 112 CMP 07/20/2005 Sodium 142 mmol/L 135-144 112 Potassium 4.3 mmol/L 3.6-5.2 112 Chloride 105 mmol/L 97-110 112 Carbon Dioxide 31 mmol/L 23-33 112 Glucose 91 mg/dL 70-105 112 BUN 14 mg/dL 6-22 112 Creatinine 0.8 mg/dL 0.5-1.3 112 BUN/CR 18 Ratio 12.0-20.0 112 Calcium 9.1 mg/dL 8.6-10.2 112 Total Protein 6.5 g/dL 5.8-7.8 112 Albumin 3.6 g/dL 3.5-4.8 112 Globulin 2.9 g/dL 2.0-3.5 112 A/G Ratio 1.2 Ratio 1.0-2.2 112 Total Bilirubin 0.6 mg/dL 0.3-1.2 112 Alkaline Phosphatase 75 U/L 24-140 112 Alt 43 U/L 4-45 112 Ast 32 U/L 12-40 112 Anion Gap 10 mmol/L 8-16 112 GFR White Male 105 112 GFR White Female 78 112 GFR Black Male 127 112 GFR Black Female 94 112 GFR Guidelines 0 112, 119 CBC 07/20/2005 WBC 5.9 K/ul 4.0-10.9 112 RBC 4.87 M/ul 4.20-5.40 112 Hemoglobin 14.8 GM/dl 12.5-16.0 112 Hematocrit 42.8 % 36.0-47.0 112 MCV 87.8 FL 80.0-97.0 112 MCH 30.3 pg 27.0-31.0 112 MCHC 34.5 g/dL 32.0-36.0 112 RDW 12.6 % 11.5-14.5 112 Platelet Count 215 K/ul 140-440 112 Neutrophils 52.2 % 50-70 112 Lymphocytes 37.1 % 20-44 112 Monocytes 6.3 % 2-9 112 Eosinophil 3.0 % 0-4 112 Basophil 1.4 % 0-2 112 Absolute Neutrophils 3.0 K/ul 2.05-7.63 112 Absolute Lymphocytes 2.2 K/ul 0.8-4.8 112 Absolute Monocytes 0.4 K/ul 0.1-1.0 112 Absolute Eosinophils 0.2 K/ul 0.1-0.5 112 Absolute Basophils 0.1 K/ul 0.1-0.3 112 Lipid TX Panel 05/18/2005 Ast 31 U/L 12-40 112 Alt 32 U/L 4-45 112 Cholesterol 159 mg/dL 50-199 112 Triglycerides 117 mg/dL 10-150 112 HDL 54 mg/dL 35-85 112 LDL (Calc) 82 mg/dL 20-100 112 Chol/HDL Ratio 2.9 Ratio 112 VLDL 23 mg/dL 112 CBC 01/13/2004 WBC 7.0 K/ul 4.1-10.9 RBC 4.94 M/ul 4.20-6.30 Hemoglobin 15.0 GM/dl 12.5-15.0 Hematocrit 44.9 % 37.0-51.0 MCV 90.8 FL 80.0-97.0 MCH 30.4 pg 26.0-32.0 MCHC 33.5 g/dL 31.0-36.0 RDW 12.9 % 11.5-14.5 Platelet Count 265 K/ul 140-440 Neutrophils 49.6 % Low 50-70 Lymphocytes 43.6 % 20-44 Monocytes 4.6 % 2-9 Eosinophil 1.1 % 0-4 Basophil 1.1 % 0-2 Absolute Neutrophils 3.4 K/ul 2.05-7.63 Absolute Lymphocytes 3.1 K/ul 0.8-4.8 Absolute Monocytes 0.3 K/ul 0.1-1.0 Absolute Eosinophils 0.1 K/ul 0.1-0.5 Absolute Basophils 0.1 K/ul 0.1-0.3 Laboratory test finding 01/13/2004 Hemoglobin A1c 5.7 % 4.1-6.5 TSH 2.64 uIU/ml 0.50-6.00 Lipid Panel 01/13/2004 Cholesterol 236 mg/dL High 50-199 Triglycerides 126 mg/dL 30-200 HDL 52 mg/dL 35-85 Chol/HDL Ratio 4.5 Ratio VLDL 25 mg/dL LDL (Calc) 159 mg/dL High 20-129 CMP 01/13/2004 Sodium 141 mmol/L 135-145 Potassium 4.5 mmol/L 3.4-5.3 Chloride 105 mmol/L 98-111 Carbon Dioxide 26 mmol/L 22-33 Glucose 84 mg/dL 70-105 BUN 15 mg/dL 6-26 Creatinine 1.0 mg/dL 0.5-1.5 BUN/CR 15 Ratio 12.0-20.0 Calcium 9.4 mg/dL 8.6-10.3 Total Protein 7.4 g/dL 6.2-8.3 Albumin 4.3 g/dL 3.5-5.0 Globulin 3.1 g/dL 2.7-4.3 A/G Ratio 1.4 Ratio 1.0-2.2 Total Bilirubin 0.8 mg/dL 0.1-1.3 Ast 22 U/L 8-42 Alt 24 U/L 3-42 Alkaline Phosphatase 69 U/L 24-140 Anion Gap 15 mmol/L 10-20 Lipid Panel 07/18/2001 Cholesterol 262. mg/dL High 50-199 120 VLDL Cholesterol 38. mg/dL 121 Triglycerides 188. mg/dL 30-249 HDL Cholesterol Quanitity not sufficient for completing HDL mg/dL 29-86 122 Chol/HDL Ratio Unable to assay HDL; CHOL/HDL risk not calculated 123 LDL(Calc) Unable to calculate LDL value due to HDL sample QNS 20-129 mg/dL CMP 07/18/2001 Sodium 143. mmol/L 137-145 124 Potassium 4.2 mmol/L 3.6-5.0 Chloride 105. mmol/L 98-107 Carbon Dioxide 25. mmol/L 22-30 Glucose 93. mg/dL 65-105 BUN 17. mg/dL 7-18 Creatinine, Serum .9 mg/dL 0.7-1.2 BUN/CR Ratio 18.6 Ratio 12-20 Calcium 10.3 mg/dL 8.7-10.5 Total Protein 7.8 g/dL 6.3-8.2 Albumin 4.3 g/dL 3.5-5.0 Globulin 3.5 g/dL 2.7-4.3 A/G Ratio 1.2 1.0-2.2 Total Bilirubin .5 mg/dL 0.2-1.3 Ast 24. U/L 14-36 Alt 30. U/L 9-52 Alkaline Phosphatase 74. U/L 38-126 Laboratory test finding 07/18/2001 TSH 2.22 uIU/ml 0.47-6.90 125 CBC 07/18/2001 WBC 8.1 K/ul 4.1-10.9 RBC 5.06 M/ul 4.2-6.3 Hemoglobin 15.4 GM/dl 12.0-16.0 Hematocrit 44.8 % 37.0-51.0 MCV 88.6 FL 80-97 MCH 30.4 pg 26.0-32.0 MCHC 34.3 g/dL 31.0-36.0 RDW 12.8 % 11.5-14.5 Platelet Count 269 K/ul 140-440 Neutrophils 49.2 % Low 50-70 Lymphocytes 42.7 % 20-44 Monocytes 5.6 % 2-9 Eosinophil 1.6 % 0-4 Basophil 0.9 % 0-2 Absolute Neutrophils 3.9 K/ul 2.05-7.63 Absolute Lymphocytes 3.5 K/ul 0.8-4.8 Absolute Monocytes 0.5 K/ul 0.1-1.0 Absolute Eosinophils 0.1 K/ul 0.1-0.5 Absolute Basophils 0.1 K/ul 0.1-0.3 1 LABS TO [facility] NON PAR W/[facility]. This sample is drawn by:[facility]. 2 Unless otherwise specified, testing performed by [facility] [address] [address] 3 NORMAL KIDNEY FUNCTION OR MILD DISEASE - GFR >OR=60 CHRONIC KIDNEY DISEASE - GFR 15 - 59 RENAL FAILURE - GFR <15 Est. GFR calculation based on the MDRD study equation, which assumes a steady state for creatinine. Est. GFR should not be used for medication dosing. Unless otherwise specified, testing [place] [address] 4 PER NCEP ATP III GUIDELINES: RESULTS LOWER THAN 40 MG/DL ARE SUGGESTIVE OF INCREASED RISK FOR CORONARY ARTERY DISEASE. RESULTS > OR=TO 60 MG/DL ARE CONSIDERED A NEGATIVE RISK FACTOR. 5 INTERPRETATION OF CHOL-HDL RATIO CHD RISK FEMALE MALE VERY HIGH >8.3 >14.3 HIGH 5.6- 8.3 6.7- 14.3 AVERAGE 3.7- 5.6 4.0- 6.7 BELOW AVERAGE 2.5- 3.7 2.7- 4.0 PROTECTED <2.5 <2.7 6 PER NCEP ATP III GUIDELINES: OPTIMAL < 100 NEAR OPTIMAL 100 - 129 BORDERLINE HIGH 130 - 159 HIGH 160 - 189 VERY HIGH > 189 Unless otherwise specified, testing performed by [employer] [facility] [place] [address] 7 Unless otherwise specified, testing performed by [employer] [facility] [place] [address] 8 A REVIEW OF THE LITERATURE SUGGESTS THE FOLLOWING RANGES FOR THE CLASSIFICATION OF 25-OH VITAMIN D STATUS: VITAMIN D STATUS 25-OH VITAMIN D DEFICIENCY <20 NG/ML INSUFFICIENCY 20-30 NG/ML SUFFICIENCY 31 - 100 NG/ML TOXICITY > 100 NG/ML A PEDIATRIC REFERENCE RANGE HAS NOT BEEN ESTABLISHED USING THIS METHOD. Unless otherwise specified, testing performed by [employer] [facility] [place] [address] 9 Unless otherwise specified, testing performed by [employer] [facility] [place] [address] 10 NORMAL KIDNEY FUNCTION OR MILD DISEASE - GFR >OR=60 CHRONIC KIDNEY DISEASE - GFR 15 - 59 RENAL FAILURE - GFR <15 Est. GFR calculation based on the MDRD study equation, which assumes a steady state for creatinine. Est. GFR should not be used for medication dosing. Unless otherwise specified, testing performed by [employer] [facility] [place] [address] 11 HEMOGLOBIN A1c INTERPRETATION: 4.0-6.0% GOOD GLYCEMIC CONTROL 6.1-6.5% AT RISK FOR HYPERGLYCEMIA >6.5% DIABETIC/ POOR GLYCEMIC CONTROL REFERENCE: DIABETES CARE 32(7), 2009 IF A1c RESULT IS INCONSISTENT WITH CLINICAL ESTIMATES OF GLYCEMIC CONTROL, AN INTERFERING Hb VARIANT SHOULD BE CONSIDERED. Unless otherwise specified, testing performed by [facility] [facility] [place] [address] 12 PER NCEP ATP III GUIDELINES: RESULTS LOWER THAN 40 MG/DL ARE SUGGESTIVE OF INCREASED RISK FOR CORONARY ARTERY DISEASE. RESULTS > OR=TO 60 MG/DL ARE CONSIDERED A NEGATIVE RISK FACTOR. 13 INTERPRETATION OF CHOL-HDL RATIO CHD RISK FEMALE MALE VERY HIGH >8.3 >14.3 HIGH 5.6- 8.3 6.7- 14.3 AVERAGE 3.7- 5.6 4.0- 6.7 BELOW AVERAGE 2.5- 3.7 2.7- 4.0 PROTECTED <2.5 <2.7 14 PER NCEP ATP III GUIDELINES: OPTIMAL < 100 NEAR OPTIMAL 100 - 129 BORDERLINE HIGH 130 - 159 HIGH 160 - 189 VERY HIGH > 189 Unless otherwise specified, testing performed by [employer] [facility] [place] [address] 15 Unless otherwise specified, testing [place] [address] 16 Unless otherwise specified, testing performed by [facility] [employer] [address] [place] [address] 17 Unless otherwise specified, testing performed by [employer] [address] [place] [address] 18 A Negative serologic test for Lyme Disease indicates no serologic evidence of infection with B burgdorferi at the time this specimen was collected. A repeat specimen should be collected in 2 to 4 weeks if clinically indicated. Unless otherwise specified, testing performed by [employer] [address] [place] [address] 19 Unless otherwise specified, testing performed by [employer] [address] [place] [address] 20 A REVIEW OF THE LITERATURE SUGGESTS THE FOLLOWING RANGES FOR THE CLASSIFICATION OF 25-OH VITAMIN D STATUS: VITAMIN D STATUS 25-OH VITAMIN D DEFICIENCY <20 NG/ML INSUFFICIENCY 20-30 NG/ML SUFFICIENCY 31 - 100 NG/ML TOXICITY > 100 NG/ML A PEDIATRIC REFERENCE RANGE HAS NOT BEEN ESTABLISHED USING THIS METHOD. Unless otherwise specified, testing performed by [employer] [address] [place] [address] 21 Per NCEP ATP III Guidelines: Results lower than 40 mg/dL are suggestive of increased risk for coronary artery disease. Results > or=to 60 mg/dL are considered a negative risk factor. 22 Per NCEP ATP III Guidelines: Normal Population <130 Patients with medical conditions: CHD/DM Optimal: <100 Borderline high: 130-159 High: 160-189 Very high: >189 23 labs must be sent to [place] [facility] 24 Unless otherwise specified, testing performed by [facility] [address] [place] [address] 25 Unless otherwise specified, testing performed by [employer] [address] [place] [address] 26 Unless otherwise specified, testing performed by [employer] [address] [place] [address] 27 HEMOGLOBIN A1c INTERPRETATION: 4.0-6.0% GOOD GLYCEMIC CONTROL 6.1-6.5% AT RISK FOR HYPERGLYCEMIA >6.5% DIABETIC/ POOR GLYCEMIC CONTROL REFERENCE: DIABETES CARE 32(7), 2008 IF A1c RESULT IS INCONSISTENT WITH CLINICAL ESTIMATES OF GLYCEMIC CONTROL, AN INTERFERING Hb VARIANT SHOULD BE CONSIDERED. Unless otherwise specified, testing performed by [facility] [facility] [place] [address] 28 Unless otherwise specified, testing performed by [employer] [facility] [place] [address] 29 PER NCEP ATP III GUIDELINES: RESULTS LOWER THAN 40 MG/DL ARE SUGGESTIVE OF INCREASED RISK FOR CORONARY ARTERY DISEASE. RESULTS > OR=TO 60 MG/DL ARE CONSIDERED A NEGATIVE RISK FACTOR. 30 INTERPRETATION OF CHOL-HDL RATIO CHD RISK FEMALE MALE VERY HIGH >8.3 >14.3 HIGH 5.6- 8.3 6.7- 14.3 AVERAGE 3.7- 5.6 4.0- 6.7 BELOW AVERAGE 2.5- 3.7 2.7- 4.0 PROTECTED <2.5 <2.7 31 PER NCEP ATP III GUIDELINES: OPTIMAL < 100 NEAR OPTIMAL 100 - 129 BORDERLINE HIGH 130 - 159 HIGH 160 - 189 VERY HIGH > 189 Unless otherwise specified, testing performed by [facility] [facility] [place] [address] 32 NORMAL KIDNEY FUNCTION OR MILD DISEASE - GFR >OR=60 CHRONIC KIDNEY DISEASE - GFR 15 - 59 RENAL FAILURE - GFR <15 Est. GFR calculation based on the MDRD study equation, which assumes a steady state for creatinine. Est. GFR should not be used for medication dosing. Unless otherwise specified, testing performed by [facility] [facility] [place] [address] 33 Unless otherwise specified, testing performed by [employer] [facility] [place] [address] 34 This sample is drawn by:NB. 35 144 Electrolytes confirmed by repeat. 36 40 Results verified by repeat analysis 37 Concerning GFR Guidelines for Americans: Normal function or mild renal disease, if clinically at risk: >/=60 mL/min Moderately decreased: 30-59 Severely decreased: 15-29 Renal failure: <15 38 Concerning GFR Guidelines: Normal function or mild renal disease, if clinically at risk: >/=60 mL/min Moderately decreased: 30-59 Severely decreased: 15-29 Renal failure: <15 Glomerular Filtration Rate (GFR) is estimated based on the MDRD equation, which assumes a steady state for creatinine as recommended by the National Kidney Disease Education Program in conjunction with the National Institutes of Health and the National Kidney Foundation. Clinical conditions in which it may be necessary to measure GFR by using clearance methods include extremes of age and body size, severe malnutrition or obesity, diseases of skeletal muscle, paraplegia or quadriplegia, vegetarian diet, rapidly changing kidney function, and calculation of the dose of potentially toxic drugs that are excreted by the kidneys. 39 Per NCEP ATP III Guidelines: Results lower than 40 mg/dL are suggestive of increased risk for coronary artery disease. Results > or=to 60 mg/dL are considered a negative risk factor. 40 Per NCEP ATP III Guidelines: Normal Population <130 Patients with medical conditions: CHD/DM Optimal: <100 Borderline high: 130-159 High: 160-189 Very high: >189 41 Normal adult female: Premenopausal: 17-94 nM BCE/mM creatinine Postmenopausal: 26-124 nM BCE/mM creatinine INTERPRETIVE INFORMATION: N-Telopeptide, Cross Linked, Urine NTx Units=nM BCE/mM creatinine A decrease of 30-40% from the NTx baseline after 3 months of therapy is a typical response to anti-resorptive therapy. NTx=Cross-linked N-telopeptide of Type I Collagen BCE=Bone Collagen Equivalent Access complete set of age- and/or gender-specific reference intervals for this test in the [email or web address] Directory ([employer]). 42 Unit: mg/dL Performed by [facility], [address] [place] [id number] [email or web address], Kemal Lowery MD, Lab. Director Unless otherwise specified, testing performed by [facility] [address] [place] [id number] Microbiology results SOURCE URINE FINAL RESULT No growth 44 Concerning GFR Guidelines for Americans: Normal function or mild renal disease, if clinically at risk: >/=60 mL/min Moderately decreased: 30-59 Severely decreased: 15-29 Renal failure: <15 45 Concerning GFR Guidelines: Normal function or mild renal disease, if clinically at risk: >/=60 mL/min Moderately decreased: 30-59 Severely decreased: 15-29 Renal failure: <15 Glomerular Filtration Rate (GFR) is estimated based on the MDRD equation, which assumes a steady state for creatinine as recommended by the National Kidney Disease Education Program in conjunction with the National Institutes of Health and the National Kidney Foundation. Clinical conditions in which it may be necessary to measure GFR by using clearance methods include extremes of age and body size, severe malnutrition or obesity, diseases of skeletal muscle, paraplegia or quadriplegia, vegetarian diet, rapidly changing kidney function, and calculation of the dose of potentially toxic drugs that are excreted by the kidneys. 46 Per NCEP ATP III Guidelines: Results lower than 40 mg/dL are suggestive of increased risk for coronary artery disease. Results > or=to 60 mg/dL are considered a negative risk factor. 47 Per NCEP ATP III Guidelines: Normal Population <130 Patients with medical conditions: CHD/DM Optimal: <100 Borderline high: 130-159 High: 160-189 Very high: >189 48 Reference range: 0 to 19 Unit: Units INTERPRETIVE INFORMATION: Cyclic Citrullinated Peptide Antibody, IgG 19 Units or less ................... Negative 20-39 Units ........................ Weak Positive 40-59 Units ........................ Moderate Positive 60 Units or greater ................ Strong Positive Anti-cyclic citrullinated peptide (anti-CCP), IgG antibodies are present in about 69-83 percent of patients with rheumatoid arthritis (RA) and have specificities of 93-95 percent. These autoantibodies may be present in the preclinical phase of disease, are associated with future RA development, and may predict radiographic joint destruction. Patients with weak positive results should be monitored and testing repeated. Performed by [facility], [address] [place] [id number] [email or web address], Kemal Lowery MD, Lab. Director Unless otherwise specified, testing performed by [facility] [address] [place] [id number] [phone] Consistent with previous result(s). 50 Concerning GFR Guidelines for Americans: Normal function or mild renal disease, if clinically at risk: >/=60 mL/min Moderately decreased: 30-59 Severely decreased: 15-29 Renal failure: <15 51 Concerning GFR Guidelines: Normal function or mild renal disease, if clinically at risk: >/=60 mL/min Moderately decreased: 30-59 Severely decreased: 15-29 Renal failure: <15 Glomerular Filtration Rate (GFR) is estimated based on the MDRD equation, which assumes a steady state for creatinine as recommended by the National Kidney Disease Education Program in conjunction with the National Institutes of Health and the National Kidney Foundation. Clinical conditions in which it may be necessary to measure GFR by using clearance methods include extremes of age and body size, severe malnutrition or obesity, diseases of skeletal muscle, paraplegia or quadriplegia, vegetarian diet, rapidly changing kidney function, and calculation of the dose of potentially toxic drugs that are excreted by the kidneys. 52 Per NCEP ATP III Guidelines: Results lower than 40 mg/dL are suggestive of increased risk for coronary artery disease. Results > or=to 60 mg/dL are considered a negative risk factor. 53 Per NCEP ATP III Guidelines: Normal Population <130 Patients with medical conditions: CHD/DM Optimal: <100 Borderline high: 130-159 High: 160-189 Very high: >189 54 Per NCEP ATP III Guidelines: Results lower than 40 mg/dL are suggestive of increased risk for coronary artery disease. Results > or=to 60 mg/dL are considered a negative risk factor. 55 Per NCEP ATP III Guidelines: Normal Population <130 Patients with medical conditions: CHD/DM Optimal: <100 Borderline high: 130-159 High: 160-189 Very high: >189 56 Concerning GFR Guidelines for Americans: Normal function or mild renal disease, if clinically at risk: >/=60 mL/min Moderately decreased: 30-59 Severely decreased: 15-29 Renal failure: <15 57 Concerning GFR Guidelines: Normal function or mild renal disease, if clinically at risk: >/=60 mL/min Moderately decreased: 30-59 Severely decreased: 15-29 Renal failure: <15 Glomerular Filtration Rate (GFR) is estimated based on the MDRD equation, which assumes a steady state for creatinine as recommended by the National Kidney Disease Education Program in conjunction with the National Institutes of Health and the National Kidney Foundation. Clinical conditions in which it may be necessary to measure GFR by using clearance methods include extremes of age and body size, severe malnutrition or obesity, diseases of skeletal muscle, paraplegia or quadriplegia, vegetarian diet, rapidly changing kidney function, and calculation of the dose of potentially toxic drugs that are excreted by the kidneys. 58 39 Electrolytes confirmed by repeat. 59 Concerning GFR Guidelines for Americans: Normal function or mild renal disease, if clinically at risk: >/=60 mL/min Moderately decreased: 30-59 Severely decreased: 15-29 Renal failure: <15 60 Concerning GFR Guidelines: Normal function or mild renal disease, if clinically at risk: >/=60 mL/min Moderately decreased: 30-59 Severely decreased: 15-29 Renal failure: <15 Glomerular Filtration Rate (GFR) is estimated based on the MDRD equation, which assumes a steady state for creatinine as recommended by the National Kidney Disease Education Program in conjunction with the National Institutes of Health and the National Kidney Foundation. Clinical conditions in which it may be necessary to measure GFR by using clearance methods include extremes of age and body size, severe malnutrition or obesity, diseases of skeletal muscle, paraplegia or quadriplegia, vegetarian diet, rapidly changing kidney function, and calculation of the dose of potentially toxic drugs that are excreted by the kidneys. 61 Per NCEP ATP III Guidelines: Results lower than 40 mg/dL are suggestive of increased risk for coronary artery disease. Results > or=to 60 mg/dL are considered a negative risk factor. 62 Per NCEP ATP III Guidelines: Optimal: <100 Near optimal: 100-129 Borderline high: 130-159 High: 160-189 Very high: >189 63 Desirable: <130 Borderline High: 130-159 High: 160-189 Very high: 190 or greater 64 Concerning GFR Guidelines for Americans: Normal function or mild renal disease, if clinically at risk: >/=60 mL/min Moderately decreased: 30-59 Severely decreased: 15-29 Renal failure: <15 65 Concerning GFR Guidelines: Normal function or mild renal disease, if clinically at risk: >/=60 mL/min Moderately decreased: 30-59 Severely decreased: 15-29 Renal failure: <15 Glomerular Filtration Rate (GFR) is estimated based on the MDRD equation, which assumes a steady state for creatinine as recommended by the National Kidney Disease Education Program in conjunction with the National Institutes of Health and the National Kidney Foundation. Clinical conditions in which it may be necessary to measure GFR by using clearance methods include extremes of age and body size, severe malnutrition or obesity, diseases of skeletal muscle, paraplegia or quadriplegia, vegetarian diet, rapidly changing kidney function, and calculation of the dose of potentially toxic drugs that are excreted by the kidneys. 66 Per NCEP ATP III Guidelines: Results lower than 40 mg/dL are suggestive of increased risk for coronary artery disease. Results > or=to 60 mg/dL are considered a negative risk factor. 67 Per NCEP ATP III Guidelines: Optimal: <100 Near optimal: 100-129 Borderline high: 130-159 High: 160-189 Very high: >189 68 [facility] [employer] [facility] [place] [address] GYNECOLOGIC CYTOLOGY REPORT Accession Number: [id number] Source of Specimen(s): A: [facility] Vaginal/ Cervical/ Endocervical Pap Smear - One Vial Clinical Diagnosis and History: Date of Last Menstrual Period: None Provided Other Clinical Conditions: REFLEX TO DIGENE HPV ASSAY IF RESULTS OF THIS PAP ARE ASCUS Specimen Adequacy Satisfactory for evaluation Scant/no endocervical component General Categorization Negative for intraepithelial lesion or malignancy Interpretation NEGATIVE FOR INTRAEPITHELIAL LESION OR MALIGNANCY Reported: 02/07/2012 Electronically Signed Out By Dayan ROE(ASCP) [facility] [place] Unless otherwise specified, testing performed by [facility] [employer] [facility] [place] [address] [place] [address] 69 Per NCEP ATP III Guidelines: Results lower than 40 mg/dL are suggestive of increased risk for coronary artery disease. Results > or=to 60 mg/dL are considered a negative risk factor. 70 Per NCEP ATP III Guidelines: Optimal: <100 Near optimal: 100-129 Borderline high: 130-159 High: 160-189 Very high: >189 71 40 Electrolytes confirmed by repeat. Specimen type: orange corning tube Results confirmed and faxed at 8:40PM on [email or web address] 72 Concerning GFR Guidelines for Americans: Normal function or mild renal disease, if clinically at risk: >/=60 mL/min Moderately decreased: 30-59 Severely decreased: 15-29 Renal failure: <15 73 Concerning GFR Guidelines: Normal function or mild renal disease, if clinically at risk: >/=60 mL/min Moderately decreased: 30-59 Severely decreased: 15-29 Renal failure: <15 Glomerular Filtration Rate (GFR) is estimated based on the MDRD equation, which assumes a steady state for creatinine as recommended by the National Kidney Disease Education Program in conjunction with the National Institutes of Health and the National Kidney Foundation. Clinical conditions in which it may be necessary to measure GFR by using clearance methods include extremes of age and body size, severe malnutrition or obesity, diseases of skeletal muscle, paraplegia or quadriplegia, vegetarian diet, rapidly changing kidney function, and calculation of the dose of potentially toxic drugs that are excreted by the kidneys. 74 Concerning GFR Guidelines: Normal function or mild renal disease, if clinically at risk: >/=60 mL/min Moderately decreased: 30-59 Severely decreased: 15-29 Renal failure: <15 Glomerular Filtration Rate (GFR) is estimated based on the MDRD equation, which assumes a steady state for creatinine as recommended by the National Kidney Disease Education Program in conjunction with the National Institutes of Health and the National Kidney Foundation. Clinical conditions in which it may be necessary to measure GFR by using clearance methods include extremes of age and body size, severe malnutrition or obesity, diseases of skeletal muscle, paraplegia or quadriplegia, vegetarian diet, rapidly changing kidney function, and calculation of the dose of potentially toxic drugs that are excreted by the kidneys. 75 Concerning GFR Guidelines for Americans: Normal function or mild renal disease, if clinically at risk: >/=60 mL/min Moderately decreased: 30-59 Severely decreased: 15-29 Renal failure: <15 76 Per NCEP ATP III Guidelines: Results lower than 40 mg/dL are suggestive of increased risk for coronary artery disease. Results > or=to 60 mg/dL are considered a negative risk factor. 77 Per NCEP ATP III Guidelines: Optimal: <100 Near optimal: 100-129 Borderline high: 130-159 High: 160-189 Very high: >189 78 Concerning GFR Guidelines: Normal function or mild renal disease, if clinically at risk: >/=60 mL/min Moderately decreased: 30-59 Severely decreased: 15-29 Renal failure: <15 Glomerular Filtration Rate (GFR) is estimated based on the MDRD equation, which assumes a steady state for creatinine as recommended by the National Kidney Disease Education Program in conjunction with the National Institutes of Health and the National Kidney Foundation. Clinical conditions in which it may be necessary to measure GFR by using clearance methods include extremes of age and body size, severe malnutrition or obesity, diseases of skeletal muscle, paraplegia or quadriplegia, vegetarian diet, rapidly changing kidney function, and calculation of the dose of potentially toxic drugs that are excreted by the kidneys. 79 Concerning GFR Guidelines for Americans: Normal function or mild renal disease, if clinically at risk: >/=60 mL/min Moderately decreased: 30-59 Severely decreased: 15-29 Renal failure: <15 80 Per NCEP ATP III Guidelines: Results lower than 40 mg/dL are suggestive of increased risk for coronary artery disease. Results > or=to 60 mg/dL are considered a negative risk factor. 81 Per NCEP ATP III Guidelines: Optimal: <100 Near optimal: 100-129 Borderline high: 130-159 High: 160-189 Very high: >189 82 FASTING This sample is drawn by:NB. 83 The difference between the most recent result of 218 and the current result of 160 exceeds the absolute delta value of 50 as defined for this test. 84 PER NCEP ATP III GUIDELINES: RESULTS LOWER THAN 40 MG/DL ARE SUGGESTIVE OF INCREASED RISK FOR CORONARY ARTERY DISEASE. RESULTS > OR=TO 60 MG/DL ARE CONSIDERED A NEGATIVE RISK FACTOR. 85 PER NCEP ATP III GUIDELINES: OPTIMAL: <100 NEAR OPTIMAL: 100 - 129 BORDERLINE HIGH: 130 - 159 HIGH: 160 - 189 VERY HIGH: >189 86 INTERPRETATION OF CHOL-HDL RATIO CHD RISK FEMALE MALE VERY HIGH >8.3 >14.3 HIGH 5.6 - 8.3 6.7 - 14.3 AVERAGE 3.7 - 5.6 4.0 - 6.7 BELOW AVERAGE 2.5 - 3.7 2.7 - 4.0 PROTECTED <2.5 <2.7 87 Concerning GFR GUIDELINES: Normal Function or Mild Renal Disease, if clinically at risk: >/=60mL/min Moderately decreased: 30-59 Severely decreased: 15-29 Renal Failure: <15 Glomerular Filtration Rate (GFR) is estimated based on the MDRD equation, which assumes a steady state for creatinine as recommended by the National Kidney Disease Education Program in conjunction with the National Institutes of Health and the National Kidney Foundation. Clinical conditions in which it may be necessary to measure GFR by using clearance methods include extremes of age and body size, severe malnutrition or obesity, diseases of skeletal muscle, paraplegia or quadriplegia, vegetarian diet, rapidly changing kidney function, and calculation of the dose of potentially toxic drugs that are excreted by the kidneys. 88 Concerning GFR GUIDELINES: Normal Function or Mild Renal Disease, if clinically at risk: >/=60mL/min Moderately decreased: 30-59 Severely decreased: 15-29 Renal Failure: <15 89 FASTING This sample is drawn by: DB 90 PER NCEP ATP III GUIDELINES: RESULTS LOWER THAN 40 MG/DL ARE SUGGESTIVE OF INCREASED RISK FOR CORONARY ARTERY DISEASE. RESULTS > OR=TO 60 MG/DL ARE CONSIDERED A NEGATIVE RISK FACTOR. 91 INTERPRETATION OF CHOL-HDL RATIO CHD RISK FEMALE MALE VERY HIGH >8.3 >14.3 HIGH 5.6 - 8.3 6.7 - 14.3 AVERAGE 3.7 - 5.6 4.0 - 6.7 BELOW AVERAGE 2.5 - 3.7 2.7 - 4.0 PROTECTED <2.5 <2.7 92 PER NCEP ATP III GUIDELINES: OPTIMAL: <100 NEAR OPTIMAL: 100 - 129 BORDERLINE HIGH: 130 - 159 HIGH: 160 - 189 VERY HIGH: >189 93 Concerning GFR GUIDELINES: Normal Function or Mild Renal Disease, if clinically at risk: >/=60mL/min Moderately decreased: 30-59 Severely decreased: 15-29 Renal Failure: <15 Glomerular Filtration Rate (GFR) is estimated based on the MDRD equation, which assumes a steady state for creatinine as recommended by the National Kidney Disease Education Program in conjunction with the National Institutes of Health and the National Kidney Foundation. Clinical conditions in which it may be necessary to measure GFR by using clearance methods include extremes of age and body size, severe malnutrition or obesity, diseases of skeletal muscle, paraplegia or quadriplegia, vegetarian diet, rapidly changing kidney function, and calculation of the dose of potentially toxic drugs that are excreted by the kidneys. 94 Concerning GFR GUIDELINES: Normal Function or Mild Renal Disease, if clinically at risk: >/=60mL/min Moderately decreased: 30-59 Severely decreased: 15-29 Renal Failure: <15 95 FASTING This sample is drawn by:NB. 96 The difference between the most recent result of 1.1 and the current result of 0.7 exceeds the absolute delta value of 0.3 as defined for this test. 97 Concerning GFR GUIDELINES: Normal Function or Mild Renal Disease, if clinically at risk: >/=60mL/min Moderately decreased: 30-59 Severely decreased: 15-29 Renal Failure: <15 Glomerular Filtration Rate (GFR) is estimated based on the MDRD equation, which assumes a steady state for creatinine as recommended by the National Kidney Disease Education Program in conjunction with the National Institutes of Health and the National Kidney Foundation. Clinical conditions in which it may be necessary to measure GFR by using clearance methods include extremes of age and body size, severe malnutrition or obesity, diseases of skeletal muscle, paraplegia or quadriplegia, vegetarian diet, rapidly changing kidney function, and calculation of the dose of potentially toxic drugs that are excreted by the kidneys. 98 Concerning GFR GUIDELINES: Normal Function or Mild Renal Disease, if clinically at risk: >/=60mL/min Moderately decreased: 30-59 Severely decreased: 15-29 Renal Failure: <15 99 [employer] [place] [address] GYNECOLOGIC CYTOLOGY REPORT Accession Number: [id number] Source of Specimen(s): A: Sure[facility] Vaginal/ Cervical/ Endocervical Pap Smear - One Vial Clinical Diagnosis and History: Date of Last Menstrual Period: None Provided Other Clinical Conditions: REFLEX TO DIGENE HPV ASSAY IF RESULTS OF THIS PAP ARE ASCUS Specimen Adequacy Satisfactory for evaluation Scant/no endocervical component General Categorization Negative for intraepithelial lesion or malignancy Interpretation NEGATIVE FOR INTRAEPITHELIAL LESION OR MALIGNANCY Reactive cellular changes associated with inflammation Reported: 03/18/2009 Electronically Signed Out By Reema ROE(ASCP) [facility] dol ICD9 Code: V72.31 Unless otherwise specified, testing performed by [employer] [facility] [place] [address] [place] [address] 100 PER NCEP ATP III GUIDELINES: RESULTS LOWER THAN 40 MG/DL ARE SUGGESTIVE OF INCREASED RISK FOR CORONARY ARTERY DISEASE. RESULTS > OR=TO 60 MG/DL ARE CONSIDERED A NEGATIVE RISK FACTOR. 101 INTERPRETATION OF CHOL-HDL RATIO CHD RISK FEMALE MALE VERY HIGH >8.3 >14.3 HIGH 5.6 - 8.3 6.7 - 14.3 AVERAGE 3.7 - 5.6 4.0 - 6.7 BELOW AVERAGE 2.5 - 3.7 2.7 - 4.0 PROTECTED <2.5 <2.7 102 PER NCEP ATP III GUIDELINES: OPTIMAL: <100 NEAR OPTIMAL: 100 - 129 BORDERLINE HIGH: 130 - 159 HIGH: 160 - 189 VERY HIGH: >189 103 FASTING This sample is drawn by:[facility] 104 Concerning GFR GUIDELINES: Normal Function or Mild Renal Disease, if clinically at risk: >/=60mL/min Moderately decreased: 30-59 Severely decreased: 15-29 Renal Failure: <15 Glomerular Filtration Rate (GFR) is estimated based on the MDRD equation, which assumes a steady state for creatinine as recommended by the National Kidney Disease Education Program in conjunction with the National Institutes of Health and the National Kidney Foundation. Clinical conditions in which it may be necessary to measure GFR by using clearance methods include extremes of age and body size, severe malnutrition or obesity, diseases of skeletal muscle, paraplegia or quadriplegia, vegetarian diet, rapidly changing kidney function, and calculation of the dose of potentially toxic drugs that are excreted by the kidneys. 105 Concerning GFR GUIDELINES: Normal Function or Mild Renal Disease, if clinically at risk: >/=60mL/min Moderately decreased: 30-59 Severely decreased: 15-29 Renal Failure: <15 106 PER NCEP ATP III GUIDELINES: RESULTS LOWER THAN 40 MG/DL ARE SUGGESTIVE OF INCREASED RISK FOR CORONARY ARTERY DISEASE. RESULTS > OR=TO 60 MG/DL ARE CONSIDERED A NEGATIVE RISK FACTOR. 107 INTERPRETATION OF CHOL-HDL RATIO CHD RISK FEMALE MALE VERY HIGH >8.3 >14.3 HIGH 5.6 - 8.3 6.7 - 14.3 AVERAGE 3.7 - 5.6 4.0 - 6.7 BELOW AVERAGE 2.5 - 3.7 2.7 - 4.0 PROTECTED <2.5 <2.7 108 PER NCEP ATP III GUIDELINES: OPTIMAL: <100 NEAR OPTIMAL: 100 - 129 BORDERLINE HIGH: 130 - 159 HIGH: 160 - 189 VERY HIGH: >189 109 PER NCEP ATP III GUIDELINES: RESULTS LOWER THAN 40 MG/DL ARE SUGGESTIVE OF INCREASED RISK FOR CORONARY ARTERY DISEASE. RESULTS > OR=TO 60 MG/DL ARE CONSIDERED A NEGATIVE RISK FACTOR. 110 PER NCEP ATP III GUIDELINES: OPTIMAL <100 NEAR OPTIMAL 100 - 129 BORDERLINE HIGH 130 - 159 HIGH 160 - 189 VERY HIGH >189 111 INTERPRETATION OF CHOL-HDL RATIO CHD RISK FEMALE MALE VERY HIGH >8.3 >14.3 HIGH 5.6 - 8.3 6.7 - 14.3 AVERAGE 3.7 - 5.6 4.0 - 6.7 BELOW AVERAGE 2.5 - 3.7 2.7 - 4.0 PROTECTED <2.5 <2.7 112 FASTING 113 Concerning GFR GUIDELINES: Normal Function or Mild Renal Disease, if clinically at risk: >/=60mL/min Moderately decreased: 30-59 Severely decreased: 15-29 Renal Failure: <15 Glomerular Filtration Rate (GFR) is estimated based on the MDRD equation, which assumes a steady state for creatinine as recommended by the National Kidney Disease Education Program in conjunction with the National Institutes of Health and the National Kidney Foundation. Clinical conditions in which it may be necessary to measure GFR by using clearance methods include extremes of age and body size, severe malnutrition or obesity, diseases of skeletal muscle, paraplegia or quadriplegia, vegetarian diet, rapidly changing kidney function, and calculation of the dose of potentially toxic drugs that are excreted by the kidneys. 114 Concerning GFR GUIDELINES: Normal Function or Mild Renal Disease, if clinically at risk: >/=60mL/min Moderately decreased: 30-59 Severely decreased: 15-29 Renal Failure: <15 115 Concerning GFR GUIDELINES: Normal Function or Mild Renal Disease, if clinically at risk: >/=60mL/min Moderately decreased: 30-59 Severely decreased: 15-29 Renal Failure: <15 Glomerular Filtration Rate (GFR) is estimated based on the MDRD equation, which assumes a steady state for creatinine as recommended by the National Kidney Disease Education Program in conjunction with the National Institutes of Health and the National Kidney Foundation. Clinical conditions in which it may be necessary to measure GFR by using clearance methods include extremes of age and body size, severe malnutrition or obesity, diseases of skeletal muscle, paraplegia or quadriplegia, vegetarian diet, rapidly changing kidney function, and calculation of the dose of potentially toxic drugs that are excreted by the kidneys. 116 Concerning GFR GUIDELINES: Normal Function or Mild Renal Disease, if clinically at risk: >/=60mL/min Moderately decreased: 30-59 Severely decreased: 15-29 Renal Failure: <15 117 Normal Function or Mild Renal Disease, if clinically at risk: >/=60 mL/ min Moderately decreased: 30-59 Severely decreased: 15-29 Renal Failure: <15 Glomerular Filtration Rate (GFR) is estimated based on the MDRD equation, which assumes a steady state for creatinine as recommended by the National Kidney Disease Education Program in conjunction with the National Institutes of Health and the National Kidney Foundation. Clinical conditions in which it may be necessary to measure GFR by using clearance methods include extremes of age and body size, severe malnutrition or obesity, diseases of skeletal muscle, paraplegia or quadriplegia, vegetarian diet, rapidly changing kidney function, and calculation of the dose of potentially toxic drugs that are excreted by the kidneys. 118 SEE REFERENCE LAB REPORT 119 Normal Function or Mild Renal Disease, if clinically at risk: >/=60 mL/ min Moderately decreased: 30-59 Severely decreased: 15-29 Renal Failure: <15 Glomerular Filtration Rate (GFR) is estimated based on the MDRD equation, which assumes a steady state for creatinine as recommended by the National Kidney Disease Education Program in conjunction with the National Institutes of Health and the National Kidney Foundation. Clinical conditions in which it may be necessary to measure GFR by using clearance methods include extremes of age and body size, severe malnutrition or obesity, diseases of skeletal muscle, paraplegia or quadriplegia, vegetarian diet, rapidly changing kidney function, and calculation of the dose of potentially toxic drugs that are excreted by the kidneys. 120 PENDING PENDING PENDING PENDING PENDING 121 PENDING 122 PENDING 123 UNABLE TO CALCULATE DUE TO QNS SAMPLE Normal Range: Male: <4.98 Female: <4.45 PENDING 124 PENDING PENDING PENDING PENDING PENDING PENDING PENDING PENDING PENDING PENDING PENDING PENDING PENDING PENDING PENDING PENDING PENDING 125 PENDING Procedures Date CPT Code Description Status Comment 01/27/2016 32861 I & D Abscess Simple Completed 10/11/2015 64220 Electrocardiogram Complete Completed 07/08/2015 93857 Measure Blood Oxygen Level Single Completed Determination 05/06/2015 Mammogram Completed 03/11/2015 25134 Electrocardiogram Complete Completed 03/11/2015 18037 Admin Of Inj (Therapeutic Completed Phrophylactic Or Diagnostic Subq Inj 04/20/2014 Bone Mineral Density Test Completed 03/30/2014 Mammogram Completed 03/15/2014 25817 Electrocardiogram Complete Completed 01/01/2014 45726 Airway Inhalation Treatment Completed 12/16/2012 41810 Electrocardiogram Complete Completed 12/16/2012 72626 Electrocardiogram Complete Completed 05/12/2012 Mammogram Completed 04/11/2012 61705 Measure Blood Oxygen Level Single Completed Determination 02/05/2012 54959 Electrocardiogram Complete Completed 11/26/2011 07037 Measure Blood Oxygen Level Single Completed Determination 05/04/2011 Mammogram Completed 04/27/2011 14269 Electrocardiogram Complete Completed 04/27/2011 96701 Electrocardiogramwith Rhythm Strip Completed 04/27/2011 12303 ECHO Transthoracis 2D W Spectral Completed Doppler 07/12/2010 05349 Measure Blood Oxygen Level Single Completed Determination 12/12/2009 Bone Mineral Density Test Completed 03/28/2009 Mammogram Completed 03/16/2009 56528 Electrocardiogram Complete Completed 03/16/2009 00229 Remove Impacted Cerumen Requiring Completed Instrumentation 03/16/2009 Colonoscopy Completed Document: 03/16/09 - Colon/Rectal Consult 03/16/2009 96147 Admin Of Inj (Therapeutic Completed Phrophylactic Or Diagnostic Subq Inj 10/06/2008 75505 Spirometry /PFT W/O Bronchodialator Completed 10/06/2008 57128 Electrocardiogram Complete Completed 08/26/2007 31900 Electrocardiogram Complete Completed 08/05/2006 99481 Electrocardiogram Complete Completed 02/26/2005 43071 Remove Impacted Cerumen Requiring Completed Instrumentation 02/26/2005 08108 Electrocardiogram Complete Completed 01/13/2004 90419 Electrocardiogram Complete Completed 11/24/2003 08888 Airway Inhalation Treatment Completed 06/10/2003 Colonoscopy Completed 03/13 DR BHASKAR SANTIAGO 03/11/2003 31326 Remove Impacted Cerumen Requiring Completed Instrumentation 03/11/2003 20735 Airway Inhalation Treatment Completed 03/11/2003 95732 Measure Blood Oxygen Level Single Completed Determination 08/27/2002 49685 Electrocardiogram Complete Completed 08/27/2002 04479 Remove Impacted Cerumen Requiring Completed Instrumentation 07/18/2001 71654 Spirometry /PFT W/O Bronchodialator Completed 07/18/2001 21824 Electrocardiogram Complete Completed Encounters Type Date Location Provider CPT E/M Dx Office Visit 01/01/2018 10:00a Mari Fox, RN [place] [employer] 64822 J44.1 J44.9 Z68.39 Office Visit 01/31/2016 8:30[place] [address] J44.9 L02.214 G47.33 Office Visit 11/08/2015 1:45[place] [address] J20.9 J44.1 J30.1 J44.9 Office Visit 10/11/2015 9:30a Tesha Alamo MD G0439 Z00.01 R41.82 J44.9 E78.0 F41.1 E66.09 R73.01 Z12.31 Z12.11 M54.5 G89.4 M81.0 E55.9 Z87.891 B37.2 Office Visit 07/08/2015 11:45[place] [address] J44.9 J44.1 M35.3 Office Visit 04/15/2015 2:45[place] [address] J02.9 S01.81xD M54.2 Office Visit 04/11/2015 1:30[place] [address] S00.03xD S00.03xD S01.81xD S01.81xD Office Visit 03/11/2015 10:15[place] [address] J44.9 E78.0 M35.3 F41.1 M54.5 E66.09 R73.01 Z12.39 J20.9 R07.2 Z23 Office Visit 11/09/2014 9:30[place] [address] 272.0 496 725 300.02 724.2 733.01 278.00 790.21 784.0 719.41 338.4 719.49 719.40 Office Visit 08/09/2014 10:45[place] [address] 496 300.02 272.0 733.01 268.9 278.00 784.91 627.3 725 V03.82 Office Visit 06/07/2014 9:45[place] [address] 300.02 784.91 733.01 627.3 272.0 790.21 725 268.9 278.00 786.09 789.01 Office Visit 04/27/2014 11:30[place] [address] 496 786.09 278.00 627.1 733.90 300.02 784.91 725 733.01 791.9 Office Visit 04/05/2014 2:30[place] [address] 496 725 786.09 784.91 278.00 627.1 616.10 784.0 327.23 Office Visit 03/26/2014 11:45[place] [address] 725 786.09 Office Visit 03/15/2014 10:30a Tesha Alamo MD G0439 725 272.0 496 790.21 724.2 V76.10 V76.51 V73.89 733.90 627.1 V70.0 V04.81 Office Visit 02/02/2014 10:15[place] [address] 272.0 496 790.21 724.2 564.1 278.00 268.9 300.02 V76.10 790.1 564.00 V76.51 719.41 719.40 Office Visit 01/01/2014 9:15[place] [address] 491.21 477.0 564.1 Office Visit 09/21/2013 11:00[place] [address] 491.21 496 782.1 Office Visit 08/24/2013 1:00p [place] [address] 496 562.11 272.0 790.21 724.2 278.00 268.9 719.41 350.1 723.1 784.0 616.10 Office Visit 08/18/2013 2:45p [place] [address] 719.41 562.11 300.02 Office Visit 04/24/2013 11:45[place] [address] 496 300.02 272.0 278.00 268.9 790.21 724.2 V04.81 Office Visit 12/16/2012 1:20[place] [address] V70.0 496 272.0 300.02 477.9 782.3 724.3 Office Visit 09/15/2012 11:15[place] [address] 461.0 Office Visit 08/15/2012 11:15[place] [address] 272.0 496 723.1 300.02 790.21 268.9 362.50 Office Visit 04/18/2012 12:00p [place] [address] 372.72 Office Visit 04/11/2012 2:15p [place] [address] 723.1 496 478.0 272.0 790.21 300.02 V04.81 Office Visit 02/05/2012 11:00[place] [address] V72.31 496 723.1 272.0 790.21 V76.10 V76.51 733.09 724.2 473.8 Office Visit 11/26/2011 2:00[place] [address] 466.0 496 Office Visit 10/08/2011 9:30[place] [address] 496 300.02 790.21 272.0 723.1 268.9 Office Visit 07/27/2011 2:15p [place] [address] 466.0 496 Office Visit 07/17/2011 11:20a Marlyn Cline 71895 496 Office Visit 07/09/2011 2:15[place] [address] 496 300.02 790.21 272.0 785.1 723.1 Office Visit 04/27/2011 8:20a Mari Fox, RN MS [employer] 65525 465.9 496 780.79 944.20 786.05 V04.81 272.0 V06.1 Office Visit 01/23/2011 1:30[place] [address] 133.0 Office Visit 10/25/2010 10:30[place] [address] 272.0 790.21 496 491.21 300.02 477.0 Office Visit 10/20/2010 11:45[place] [address] 491.21 724.3 719.46 Office Visit 07/12/2010 12:00[place] [address] 272.0 790.21 496 723.1 300.02 268.9 Office Visit 12/02/2009 9:45[place] [address] 272.0 790.21 496 719.41 723.1 300.02 733.09 473.9 Office Visit 08/26/2009 9:15[place] [address] 386.12 272.0 790.21 496 V76.51 723.1 Office Visit 03/16/2009 8:45[place] [address] V72.31 300.02 272.0 530.81 V58.69 V76.51 V76.10 477.0 V04.81 496 733.09 791.5 380.4 Office Visit 10/27/2008 9:15[place] [address] 300.02 786.51 V76.10 788.63 Office Visit 10/06/2008 9:[place] [address] 786.51 272.0 300.02 786.2 Office Visit 01/20/2008 9:45[place] [address] 272.0 477.0 530.81 782.3 786.50 Office Visit 10/24/2007 8:00[place] [address] 782.3 272.0 789.09 Office Visit 09/09/2007 3:15p [place] [address] 461.0 466.0 Office Visit 08/26/2007 10:30[place] [address] V03.82 V72.31 272.0 719.49 V76.10 V76.51 733.09 719.41 789.33 530.11 Office Visit 05/23/2007 11:30[place] [address] 272.0 305.1 719.49 Office Visit 04/01/2007 3:00p [place] [address] 486 305.1 296.21 V04.81 Office Visit 09/16/2006 9:45[place] [address] 272.0 461.0 Office Visit 09/02/2006 4:00[place] [address] 461.0 466.0 Office Visit 08/05/2006 10:15[place] [address] V72.31 272.0 530.11 V76.10 V76.51 733.90 496 789.01 305.1 Office Visit 05/14/2006 1:15p Mari Fox RN MS [employer] 72926 786.2 692.9 Office Visit 04/30/2006 10:15[place] [address] 305.1 272.0 530.11 783.1 724.2 V04.81 Office Visit 01/25/2006 9:45[place] [address] 272.0 305.1 354.0 782.3 478.1 493.00 Office Visit 10/19/2005 10:15[place] [address] 272.0 782.3 305.1 354.0 724.2 Office Visit 07/20/2005 8:30[place] [address] 272.0 530.11 562.11 478.1 Office Visit 06/29/2005 11:15[place] [address] 562.11 272.0 Office Visit 06/15/2005 8:45[place] [address] 789.07 530.11 272.0 733.90 V04.81 Office Visit 02/26/2005 6:30[place] [address] 272.0 786.51 794.31 240.9 380.4 Office Visit 11/13/2004 2:30[place] [address] 724.2 716.96 305.1 Office Visit 03/20/2004 7:00p [place] [address] 272.0 461.0 Office Visit 01/13/2004 8:40[place] [address] 272.0 785.1 789.00 V72.3 Office Visit 11/29/2003 9:20a Mari Fox RN MS [employer] 47260 466.0 Office Visit 11/24/2003 10:20a Mari Fox RN MS [facility] 35334 466.0 461.0 Office Visit 04/27/2003 10:20[place] [address] 723.1 461.0 729.5 V04.81 Office Visit 03/16/2003 10:30[place] [address] 466.0 723.1 719.41 354.0 Office Visit 03/11/2003 10:20[place] [address] 477.0 493.00 466.0 380.4 Office Visit 09/29/2002 11:30[place] [address] 594.1 305.1 530.11 Office Visit 08/27/2002 9:40[place] [address] 786.51 786.2 574.20 493.90 Office Visit 05/29/2002 1:20[place] [address] 473.9 305.1 Office Visit 05/01/2002 3:40p [place] [address] 477.0 473.9 496 Office Visit 08/19/2001 10:20[place] [address] 272.0 466.0 496 786.2 Office Visit 07/18/2001 10:20[place] [address] Plan of Care Future Appointment(s):02/14/2018 1:15 pm - Tesha Pineda MD at [id number] - Garcia Veras PAZ68.38 Body mass index (BMI) 38.0-38.9, adult
--- OUTSIDE RECORDS SUMMARY | 2018-01-20 11:33 | XMS REPORT ---
:1945 External Reference #:[id number] Author Organization [facility] Address [address] [place] [id number] Phone [phone] Care Team Providers Name Role Phone Tesha Pineda MD Care Team Information Field Services Analyst Unavailable Payers Type Date Identification Numbers Payment Provider Subscriber Medicare Primary Effective: Policy Number: Medicare Gunnar Hernandez 2012 [id number] Group Name[facility] [address] PayID: [id number] [place] [address] Medigap Part B Effective: 2012 Policy Number: [id number] [facility] Gunnar Hernandez PayID: [id number] [place] [address] Workers Compensation Effective: Policy Number: Ruthann Hernandez 2015 [id number] Onset: 2015 PayID: [id number] [address] [place] [address] Problems Date Description Provider Status Onset: 01/25/2006 [...] Active Tablets 10mg 30tab 4 tabs J44.1 Damion s every in Mari the C, RN MS morning DESIGN TECHNOLOGY TEACHER x3 days then 3tabs x 3 days, then2 tabs x3 d then 1tabs x3d Vitamin D 10/16 Active Tablets 2000Unit 1 [facility].9 [facility] every day MD Julee Nystatin 10/10 Active Powder [id number]/ 45uni apply to B37.2 [facility] GM ts affected Tesha area 2 MD [...] Active Suspension 50mcg/Act 16uni 2 sprays J32.8 [facility] each Tesha nostril MD Julee daily as needed for nasal congestio n J30.9 Aspirin 10/06/2008 Active Tablets 81mg 1 po qd R07.2 Tesha Pineda MD E78.0 Simvastatin 08/05/2006 Active Tablets 40mg 30tabs take 1 E78.2 Edwin, tablet by Tesha mouth at MD Julee bedtime Ipratropium Active Solution 0.5-2 1 vial J44.9 Unknown [place]/Albuterol .5(3) inhaled via Sulfate mg/3M nebulizer L every q4-6 hours as needed for shortness of breath/wheez ing Azithromycin 10/15/2016 Hx Tablets 250mg 6tabs 2 tabs day J44.1 Edwin , - one and 1 Tesha 10/16/2016 tab daily MD Julee till gone Prednisone 10/15/2016 Hx Tablets 10mg 30tabs 4tabs qam x J44.1 [place], - 3 days then Tesha 10/16/2016 3 [...] Hx Tablets 800-1 20tabs one tab L02.21 [place], Trimethoprim DS - 60mg twice a day 4 Mari 10/15/2016 till pam Montoya RN MS DESIGN TECHNOLOGY TEACHER Atrovent 12/28/2015 Hx Solution 0.03% 1 in [...] Hx Packet 3350N 1Bottle 1 capful 564.00 [facility], - F every day Tesha 10/11/2015 MD [...] twice a day Wheelchair 01/05/2014 Hx lightweight [facility], - dx: OA, SOB Tesha 04/05/2014 MD [...] x 496 [place], - 3 days then Tesha 08/18/2013 3 po qam x MD Julee 3d then 2 po qam x 3d then 1 po qam x 3 d Levofloxacin 12/16/2012 Hx Tablets 500mg 7tabs 1 po qd X 496 [place], - 7days Tesha 08/18/2013 MD Julee Zostavax 11/18/2012 Hx Solution 85039 1units im x 1 Jose, - Rec [...] Hx Solution 0.02 360units use in J44.9 [place] , [place] 07/08/2015 % nebulizer Tesha four times a [...] Solution 0.02% 100units use in 496 Edwin, [place] - nebulizer Tesha 05/12/2012 four times a [...] 07/09/2011 daily till Lindsay RN MS gone DESIGN TECHNOLOGY TEACHER Robitussin ac 04/27/2011 Hx 100ml 1-2 tsp qid 465. Damion, - prn cough 9 Mari 05/07/2011 C, RN MS DESIGN TECHNOLOGY TEACHER Prednisone 04/27/2011 Hx Tablets 10mg 30tabs 4 tabs for3 465. Damion, - days,3 tabs 9 Mari 05/07/2011 for 3 days, 2 C, RN MS tabs for 3 DESIGN TECHNOLOGY TEACHER days 1 tab for 3 days Permethrin [...] Edwin , - days then 3 21 Tesha 10/25/2010 po qam x 3d MD Julee [...] - mcg/ac Mari 12/27/2010 C, RN MS DESIGN TECHNOLOGY TEACHER Xopenex 07/12/2010 Hx Nebulizer 1.25mg/0.5ML nebs tid 496 [place], Concentrate - Tesha 07/12/2010 MD Julee Xopenex 07/12/2010 Hx Nebulizer 1.25mg/3ML QS tid prn 496 [place], - Tesha 02/05/2012 MD Julee Azithromycin 01/10/2010 Hx Tablets 250mg 6tabs 2 tabs day [place], - one and 1 tab Etsha 07/12/2010 daily till MD Julee gone Prednisone 01/10/2010 Hx Tablets 10mg 30tabs 4tabs qam x 3 [place], - days then 3 Tesha 07/12/2010 po qam x 3d MD Julee then 2 po qam x 3d then 1 po qam x 3 d Vitamin D 12/05/2009 Hx Capsules 05666Ntej 8caps 1 po qwk x 8 [place], (Ergocalcifer - wks Tesha ol) 10/08/2011 MD Julee Oxygen 12/02/2009 Hx 2L QHS [facility] - Tesah 09/25/2011 MD Julee Budesonide 12/02/2009 Hx Suspension 0.25mg/2ML 60units respules via 496 [place], - neb bid Mari 10/08/2011 C, RN MS DESIGN TECHNOLOGY TEACHER Cyclobenzapri 12/02/2009 Hx Tablets 10mg 30tabs take 1/2 to 1 723. Edwin, ne HCL - tablet qhs 1 Tesha 12/16/2012 MD Julee Perforomist 12/02/2009 Hx Nebu 20mcg/2ML 180units use twice 496 Edwin , - daily as Tesha 08/15/2012 dircted MD Julee O2 04/08/2009 Hx 2l via n/c @ [facility], - hs. Tesha 12/02/2009 MD Julee Portable 03/23/[address] provide as Edwin, Nebulizer - medicall Tesha 08/26/2009 necessity D/t MD Julee mobility/kyle el Albuterol 03/16/2009 Hx Nebulizer 1.25mg/3ML 4Box Nebs qid prn 496 Edwin Sulfate - Tesha 07/12/2010 MD Julee Vitamin D 03/16/2009 Hx Capsules 1000Unit 2 po qd E55. Edwin, - 9 Tesha 10/16/2016 MD Jluee Alendronate 03/16/2009 Hx Tablets 70mg 4tabs 1 [...] Mari 09/09/2007 on face C, RN MS DESIGN TECHNOLOGY TEACHER Zithromax 05/14/2006 Hx Tablets 250mg 1Pack 2 po day 1, 1 786. Damion, - po qd x day 2 Mari 05/24/2006 2-5 C, RN MS DESIGN TECHNOLOGY TEACHER Chantix 01/25/2006 Hx .5mg 11units 1 po [...] 500mg 20tabs 1 po bid [place], - [id number] Tesha 06/29/2005 Julee, Metronidazole 06/22/2005 Hx Tablets [...] to Mari 05/23/2007 dinner Lindsay RN MS DESIGN TECHNOLOGY TEACHER Singulair 02/26/2005 Hx Tablets 10mg 30tabs one [...] CPT Code Status Date Vaccine Lot # [id number] Given 06/19/2017 Influenza Vac, 3 Yrs & Older, Quadrivalent, Split, Im Use 12215 Given 04/04/2016 Influenza Vac, 3 Yrs & Older, Quadrivalent, Split, Im Use 06201 Given 03/11/2015 Influenza Vac, 3 Yrs & Older, [id number] Quadrivalent, Split, Im Use 77872 Given 08/09/2014 Prevnar 13 Pneumococal Conjugate Vaccine [id number] Q2038 Given 03/15/2014 Fluzone Trivalent Immunization [id number] Q2038 Given 04/24/2013 Fluzone Trivalent Immunization [id number] 38582 Given 06/10/2012 Zoster (Zostavax) Q2038 Given 04/11/2012 Fluzone Trivalent Immunization [id number] 50227 Given 04/27/2011 Tdap (Adacel) Ages 7 And Above Only [id number] Q2038 Given 04/27/2011 Fluzone Trivalent Immunization [id number] 68065 Given 03/16/2009 Afluria Or Fluvirin Flu Vac [id number] Intramuscular 63716 Given 08/26/2007 Pneumococcal 23 Immunization Adult Or 1537U Immunosuppressed Patient 55153 Given 04/01/2007 Afluria Or Fluvirin Flu Vac [id number] Intramuscular 91639 Given 04/30/2006 Afluria Or Fluvirin Flu Vac Intramuscular 96503 Given 06/15/2005 Afluria Or Fluvirin Flu Vac [id number] 12/07/05 Intramuscular 25231 Given 04/27/2003 Afluria Or Fluvirin Flu Vac Intramuscular 42387 Given 07/18/2001 Pneumococcal 23 Immunization Adult Or Immunosuppressed Patient 75235 Given 07/04/2001 Immunization Td 7 Yrs Or Older Vital Signs Date Vital Result Comment 01/01/2018 Weight 222.00 lb Heart Rate 83 [...] 1 Lymph % 21.3 % (16.0-52.0) 1 [place]kin % 7.5 % (0.0-8.0) 1 Eos % 3.8 % (0.0-5.0) 1 Baso % 0.3 % (0.0-4.0) 1 Neut # 5.5 10*3/uL (1.8-7.7) 1 Lymph # 1.8 10*3/uL (1.2-4.8) 1 [place]kin # 0.6 10*3/uL (0.0-0.8) 1 Eos # [...] 1 Lymph % 26.2 % (16.0-52.0) 1 [place]kin % 5.5 % (0.0-8.0) 1 Eos % 3.1 % (0.0-5.0) 1 Baso % 0.4 % (0.0-4.0) 1 Neut # 4.8 10*3/uL (1.8-7.7) 1 Lymph # 2.0 10*3/uL (1.2-4.8) 1 [place]kin # 0.4 10*3/uL (0.0-0.8) 1 Eos # [...] 23 Lymph % 30.4 % (16.0-52.0) 23 [place]kin % 5.1 % (0.0-8.0) 23 Eos % 2.1 % (0.0-5.0) 23 Baso % 0.9 % (0.0-4.0) 23 Neut # 4.0 10*3/uL (1.8-7.7) 23 Lymph # 2.0 10*3/uL (1.2-4.8) 23 [place]kin # 0.3 10*3/uL (0.0-0.8) 23 Eos # [...] Basophils 0.1 K/ul 0.1-0.3 1 LABS TO [facility] NON PAR W/CDPHP. This sample is drawn by:NB. 2 Unless otherwise specified, testing performed by [facility] [address] [place] [id number] 3 NORMAL KIDNEY FUNCTION OR MILD DISEASE - GFR >OR=60 CHRONIC KIDNEY DISEASE - GFR 15 - 59 RENAL FAILURE - GFR <15 Est. GFR calculation based on the MDRD study equation, which assumes a steady state for creatinine. Est. GFR should not be used for medication dosing. Unless otherwise specified, testing [place] [address] 4 PER NCEP ATP III GUIDELINES: RESULTS [...] 189 Unless otherwise specified, testing performed by [facility] [place] [address] 7 Unless otherwise specified, testing performed by [facility] [place] [address] 8 A REVIEW OF THE LITERATURE SUGGESTS THE FOLLOWING RANGES FOR THE CLASSIFICATION OF 25-OH VITAMIN D STATUS: VITAMIN D STATUS 25-OH VITAMIN D DEFICIENCY <20 NG/ML INSUFFICIENCY 20-30 NG/ML SUFFICIENCY 31 - 100 NG/ML TOXICITY > 100 NG/ML A PEDIATRIC REFERENCE RANGE HAS NOT BEEN ESTABLISHED USING THIS METHOD. Unless otherwise specified, testing performed by [facility] [place] [address] 9 Unless otherwise specified, testing performed by [facility] [place] [address] 10 NORMAL KIDNEY FUNCTION OR MILD DISEASE - GFR >OR=60 CHRONIC KIDNEY DISEASE - GFR 15 - 59 RENAL FAILURE - GFR <15 Est. GFR calculation based on the MDRD study equation, which assumes a steady state for creatinine. Est. GFR should not be used for medication dosing. Unless otherwise specified, testing performed by [facility] [place] [address] 11 HEMOGLOBIN A1c INTERPRETATION: 4.0-6.0% GOOD GLYCEMIC CONTROL 6.1-6.5% AT RISK FOR HYPERGLYCEMIA >6.5% DIABETIC/ POOR GLYCEMIC CONTROL REFERENCE: DIABETES CARE 32(7), 2009 IF A1c RESULT IS INCONSISTENT WITH CLINICAL ESTIMATES OF GLYCEMIC CONTROL, AN INTERFERING Hb VARIANT SHOULD BE CONSIDERED. Unless otherwise specified, testing performed by [facility] [address] [place] [address] 12 PER NCEP ATP III GUIDELINES: RESULTS [...] 189 Unless otherwise specified, testing performed by [facility] [place] [address] 15 Unless otherwise specified, testing performed by [facility] [address] [place] [address] 16 Unless otherwise specified, testing performed by [facility] [address] [place] [address] 17 Unless otherwise specified, testing performed by [facility] [address] [place] [address] 18 A Negative serologic test for Lyme Disease indicates no serologic evidence of infection with B burgdorferi at the time this specimen was collected. A repeat specimen should be collected in 2 to 4 weeks if clinically indicated. Unless otherwise specified, testing performed by [facility] [address] [place] [address] 19 Unless otherwise specified, testing performed by [facility] [address] [place] [address] 20 A REVIEW OF THE LITERATURE SUGGESTS THE FOLLOWING RANGES FOR THE CLASSIFICATION OF 25-OH VITAMIN D STATUS: VITAMIN D STATUS 25-OH VITAMIN D DEFICIENCY <20 NG/ML INSUFFICIENCY 20-30 NG/ML SUFFICIENCY 31 - 100 NG/ML TOXICITY > 100 NG/ML A PEDIATRIC REFERENCE RANGE HAS NOT BEEN ESTABLISHED USING THIS METHOD. Unless otherwise specified, testing performed by [facility] [address] [place] [address] 21 Per NCEP ATP III Guidelines: Results lower than 40 mg/dL are suggestive of increased risk for coronary artery disease. Results > or=to 60 mg/dL are considered a negative risk factor. 22 Per NCEP ATP III Guidelines: Normal Population <130 Patients with medical conditions: CHD/DM Optimal: <100 Borderline high: 130-159 High: 160-189 Very high: >189 23 labs must be sent to NE as [facility] 24 Unless otherwise specified, testing performed by [facility] [address] [place] [address] 25 Unless otherwise specified, testing performed by [facility] [address] [place] [address] 26 Unless otherwise specified, testing performed by [facility] [address] [place] [address] 27 HEMOGLOBIN A1c INTERPRETATION: 4.0-6.0% GOOD GLYCEMIC CONTROL 6.1-6.5% AT RISK FOR HYPERGLYCEMIA >6.5% DIABETIC/ POOR GLYCEMIC CONTROL REFERENCE: DIABETES CARE 32(7), 2009 IF A1c RESULT IS INCONSISTENT WITH CLINICAL ESTIMATES OF GLYCEMIC CONTROL, AN INTERFERING Hb VARIANT SHOULD BE CONSIDERED. Unless otherwise specified, testing performed by [facility] [place] [address] 28 Unless otherwise specified, testing performed by [facility] [place] [address] 29 PER NCEP ATP III GUIDELINES: RESULTS [...] 189 Unless otherwise specified, testing performed by [facility] [address] [place] [address] 32 NORMAL KIDNEY FUNCTION OR MILD DISEASE - GFR >OR=60 CHRONIC KIDNEY DISEASE - GFR 15 - 59 RENAL FAILURE - GFR <15 Est. GFR calculation based on the MDRD study equation, which assumes a steady state for creatinine. Est. GFR should not be used for medication dosing. Unless otherwise specified, testing performed by [facility] [place] [address] 33 Unless otherwise specified, testing performed by [facility] [place] [address] 34 This sample is drawn by:NB. 35 [...] reference intervals for this test in the [facility] Test Directory ([employer]). 42 Unit: mg/dL Performed by [facility], [address] [place] [id number] www.[email or web address], Kemal Lowery MD, Lab. Director Unless otherwise specified, testing performed by [facility] [address] [place] [id number] 43 Microbiology results SOURCE URINE FINAL RESULT [...] be monitored and testing repeated. Performed by [facility], [address] [place] [id number] www.[email or web address], Kemal Lowery MD, Lab. Director Unless otherwise specified, testing performed by [facility] [address] [place] [id number] [phone] 37 Consistent with previous result(s). 50 Concerning [...] 130-159 High: 160-189 Very high: >189 68 [facility] [place] [address] GYNECOLOGIC CYTOLOGY REPORT Accession Number: [id number] Source of Specimen(s): A: [facility] Vaginal/ Cervical/ [...] 02/07/2012 Electronically Signed Out By Dayan ROE(ASCP) [facility] [place] Unless otherwise specified, testing performed by [facility] [place] [address] [place] [address] 69 Per NCEP ATP III Guidelines: Results [...] Results confirmed and faxed at 8:40PM on 11.20.11- [facility] [place] 72 Concerning GFR Guidelines for Americans: Normal [...] >189 82 FASTING This sample is drawn by:[facility]. 83 The difference between the most recent [...] Severely decreased: 15-29 Renal Failure: <15 99 [facility] [place] [address] GYNECOLOGIC CYTOLOGY REPORT Accession Number: [id number] Source of Specimen(s): A: [facility] Vaginal/ Cervical/ [...] 03/18/2009 Electronically Signed Out By Reema ROE(ASCP) [facility] dol ICD9 Code: V72.31 Unless otherwise specified, testing performed by [facility] [address] [address] 100 PER NCEP ATP III GUIDELINES: RESULTS [...] Date CPT Code Description Status Comment 01/27/2016 15188 I & D Abscess Simple Completed 10/11/2015 69710 Electrocardiogram Complete Completed 07/08/2015 17960 Measure Blood Oxygen Level Single Completed Determination 05/06/2015 Mammogram Completed 03/11/2015 22319 Electrocardiogram Complete Completed 03/11/2015 76609 Admin Of Inj (Therapeutic Completed Phrophylactic Or Diagnostic Subq Inj 04/20/2014 Bone Mineral Density Test Completed 03/30/2014 Mammogram Completed 03/15/2014 62450 Electrocardiogram Complete Completed 01/01/2014 11085 Airway Inhalation Treatment Completed 12/16/2012 30932 Electrocardiogram Complete Completed 12/16/2012 10110 Electrocardiogram Complete Completed 05/12/2012 Mammogram Completed 04/11/2012 84476 Measure Blood Oxygen Level Single Completed Determination 02/05/2012 76972 Electrocardiogram Complete Completed 11/26/2011 33095 Measure Blood Oxygen Level Single Completed Determination 05/04/2011 Mammogram Completed 04/27/2011 95577 Electrocardiogram Complete Completed 04/27/2011 69523 Electrocardiogramwith Rhythm Strip Completed 04/27/2011 48114 ECHO Transthoracis 2D W Spectral Completed Doppler 07/12/2010 78716 Measure Blood Oxygen Level Single Completed Determination 12/12/2009 Bone Mineral Density Test Completed 03/28/2009 Mammogram Completed 03/16/2009 27708 Electrocardiogram Complete Completed 03/16/2009 31369 Remove Impacted Cerumen Requiring Completed Instrumentation 03/16/2009 Colonoscopy Completed Document: 03/16/09 - Colon/Rectal Consult 03/16/2009 77043 Admin Of Inj (Therapeutic Completed Phrophylactic Or Diagnostic Subq Inj 10/06/2008 21027 Spirometry /PFT W/O Bronchodialator Completed 10/06/2008 06221 Electrocardiogram Complete Completed 08/26/2007 53764 Electrocardiogram Complete Completed 08/05/2006 75550 Electrocardiogram Complete Completed 02/26/2005 17390 Remove Impacted Cerumen Requiring Completed Instrumentation 02/26/2005 63892 Electrocardiogram Complete Completed 01/13/2004 17830 Electrocardiogram Complete Completed 11/24/2003 36440 Airway Inhalation Treatment Completed 06/10/2003 Colonoscopy Completed 03/13 DR BHASKAR SANTIAGO 03/11/2003 40350 Remove Impacted Cerumen Requiring Completed Instrumentation 03/11/2003 87317 Airway Inhalation Treatment Completed 03/11/2003 45844 Measure Blood Oxygen Level Single Completed Determination 08/27/2002 32568 Electrocardiogram Complete Completed 08/27/2002 83959 Remove Impacted Cerumen Requiring Completed Instrumentation 07/18/2001 96976 Spirometry /PFT W/O Bronchodialator Completed 07/18/2001 68617 Electrocardiogram Complete Completed Encounters Type Date Location Provider CPT E/M Dx Office Visit 01/31/2016 8:30[place] [address] J44.9 L02.214 G47.33 Office Visit 11/08/2015 1:45p [place] [address] J20.9 J44.1 J30.1 J44.9 Office Visit 10/11/2015 9:30a Tesha Alamo MD G0439 Z00.01 R41.82 J44.9 E78.0 F41.1 E66.09 R73.01 Z12.31 Z12.11 M54.5 G89.4 M81.0 E55.9 Z87.891 B37.2 Office Visit 07/08/2015 11:45[place] [address] J44.9 J44.1 M35.3 Office Visit 04/15/2015 2:45p [place] [address] J02.9 S01.81xD M54.2 Office Visit 04/11/2015 1:30[place] [address] S00.03xD S00.03xD S01.81xD S01.81xD Office Visit 03/11/2015 10:15[place] [address] J44.9 E78.0 M35.3 F41.1 M54.5 E66.09 R73.01 Z12.39 J20.9 R07.2 Z23 Office Visit 11/09/2014 9:30[place] [address] 272.0 496 725 300.02 724.2 733.01 278.00 790.21 784.0 719.41 338.4 719.49 719.40 Office Visit 08/09/2014 10:45[place] [address] 496 300.02 272.0 733.01 268.9 278.00 784.91 627.3 725 V03.82 Office Visit 06/07/2014 9:45[place] [address] 300.02 784.91 733.01 627.3 272.0 790.21 725 268.9 278.00 786.09 789.01 Office Visit 04/27/2014 11:30[place] [address] 496 786.09 278.00 627.1 733.90 300.02 784.91 725 733.01 791.9 Office Visit 04/05/2014 2:30[place] [address] 496 725 786.09 784.91 278.00 627.1 616.10 784.0 327.23 Office Visit 03/26/2014 11:45[place] [address] 725 786.09 Office Visit 03/15/2014 10:30a Tesha Alamo MD G0439 725 272.0 496 790.21 724.2 V76.10 V76.51 V73.89 733.90 627.1 V70.0 V04.81 Office Visit 02/02/2014 10:15[place] [address] 272.0 496 790.21 724.2 564.1 278.00 268.9 300.02 V76.10 790.1 564.00 V76.51 719.41 719.40 Office Visit 01/01/2014 9:15[place] [address] 491.21 477.0 564.1 Office Visit 09/21/2013 11:00[place] [address] 491.21 496 782.1 Office Visit 08/24/2013 1:00p [place] [address] 496 562.11 272.0 790.21 724.2 278.00 268.9 719.41 350.1 723.1 784.0 616.10 Office Visit 08/18/2013 2:45p [place] [address] 719.41 562.11 300.02 Office Visit 04/24/2013 11:45[place] [address] 496 300.02 272.0 278.00 268.9 790.21 724.2 V04.81 Office Visit 12/16/2012 1:20[place] [address] V70.0 496 272.0 300.02 477.9 782.3 724.3 Office Visit 09/15/2012 11:15[place] [address] 461.0 Office Visit 08/15/2012 11:15[place] [address] 272.0 496 723.1 300.02 790.21 268.9 362.50 Office Visit 04/18/2012 12:00p [place] [address] 372.72 Office Visit 04/11/2012 2:15[place] [address] 723.1 496 478.0 272.0 790.21 300.02 V04.81 Office Visit 02/05/2012 11:00[place] [address] V72.31 496 723.1 272.0 790.21 V76.10 V76.51 733.09 724.2 473.8 Office Visit 11/26/2011 2:00[place] [address] 466.0 496 Office Visit 10/08/2011 9:30[place] [address] 496 300.02 790.21 272.0 723.1 268.9 Office Visit 07/27/2011 2:15[place] [address] 466.0 496 Office Visit 07/17/2011 11:20a Marlyn Cline 39724 496 Office Visit 07/09/2011 2:15[place] [address] 496 300.02 790.21 272.0 785.1 723.1 Office Visit 04/27/2011 8:20a Mari Fox RN MS DESIGN TECHNOLOGY TEACHER 46681 465.9 496 780.79 944.20 786.05 V04.81 272.0 V06.1 Office Visit 01/23/2011 1:30[place] [address] 133.0 Office Visit 10/25/2010 10:30[place] [address] 272.0 790.21 496 491.21 300.02 477.0 Office Visit 10/20/2010 11:45[place] [address] 491.21 724.3 719.46 Office Visit 07/12/2010 12:00[place] [address] 272.0 790.21 496 723.1 300.02 268.9 Office Visit 12/02/2009 9:45[place] [address] 272.0 790.21 496 719.41 723.1 300.02 733.09 473.9 Office Visit 08/26/2009 9:15[place] [address] 386.12 272.0 790.21 496 V76.51 723.1 Office Visit 03/16/2009 8:45[place] [address] V72.31 300.02 272.0 530.81 V58.69 V76.51 V76.10 477.0 V04.81 496 733.09 791.5 380.4 Office Visit 10/27/2008 9:15[place] [address] 300.02 786.51 V76.10 788.63 Office Visit 10/06/2008 9:45[place] [address] 786.51 272.0 300.02 786.2 Office Visit 01/20/2008 9:45[place] [address] 272.0 477.0 530.81 782.3 786.50 Office Visit 10/24/2007 8:00[place] [address] 782.3 272.0 789.09 Office Visit 09/09/2007 3:15p [place] [address] 461.0 466.0 Office Visit 08/26/2007 10:30[place] [address] V03.82 V72.31 272.0 719.49 V76.10 V76.51 733.09 719.41 789.33 530.11 Office Visit 05/23/2007 11:30[place] [address] 272.0 305.1 719.49 Office Visit 04/01/2007 3:00p [place] [address] 486 305.1 296.21 V04.81 Office Visit 09/16/2006 9:45[place] [address] 272.0 461.0 Office Visit 09/02/2006 4:00p [place] [address] 461.0 466.0 Office Visit 08/05/2006 10:15[place] [address] V72.31 272.0 530.11 V76.10 V76.51 733.90 496 789.01 305.1 Office Visit 05/14/2006 1:15p Mari Fox RN [facility] 88730 786.2 692.9 Office Visit 04/30/2006 10:15[place] [address] 305.1 272.0 530.11 783.1 724.2 V04.81 Office Visit 01/25/2006 9:45[place] [address] 272.0 305.1 354.0 782.3 478.1 493.00 Office Visit 10/19/2005 10:15[place] [address] 272.0 782.3 305.1 354.0 724.2 Office Visit 07/20/2005 8:30[place] [address] 272.0 530.11 562.11 478.1 Office Visit 06/29/2005 11:15[place] [address] 562.11 272.0 Office Visit 06/15/2005 8:45[place] [address] 789.07 530.11 272.0 733.90 V04.81 Office Visit 02/26/2005 6:30[place] [address] 272.0 786.51 794.31 240.9 380.4 Office Visit 11/13/2004 2:30[place] [address] 724.2 716.96 305.1 Office Visit 03/20/2004 7:00p [place] [address] 272.0 461.0 Office Visit 01/13/2004 8:40[place] [address] 272.0 785.1 789.00 V72.3 Office Visit 11/29/2003 9:20a Mari Fox RN [facility] 10309 466.0 Office Visit 11/24/2003 10:20a Mari Fox RN MS DESIGN TECHNOLOGY TEACHER 03455 466.0 461.0 Office Visit 04/27/2003 10:20[place] [address] 723.1 461.0 729.5 V04.81 Office Visit 03/16/2003 10:30[place] [address] 466.0 723.1 719.41 354.0 Office Visit 03/11/2003 10:20[place] [address] 477.0 493.00 466.0 380.4 Office Visit 09/29/2002 11:30[place] [address] 594.1 305.1 530.11 Office Visit 08/27/2002 9:40a Tesha Alamo MD [id number] 786.51 786.2 574.20 493.90 Office Visit 05/29/2002 1:20p [place] [address] 473.9 305.1 Office Visit 05/01/2002 3:40p [place] [address] 477.0 473.9 496 Office Visit 08/19/2001 10:20[place] [address] 272.0 466.0 496 786.2 Office Visit 07/18/2001 10:20[place] [id number] Plan of Care Future Appointment(s):02/14/2018 1:15 pm - Tesha Pineda MD at [id number] - Mari Bruno, RN MS [id number] Chronic obstructive pulmonary disease w (acute) exacerbationNew Medication:Prednisone 10 mgFollow up:OVER DUE FOR ANNUAL WELLNESS Can we schedule?Miscellaneous:start pred, call or er for any fever, chills, or increased sob, call dr Dasilva if not better in 5 days, if not able to see her call her and see Dr Pineda. chest xray reviewed w pt, has neb and meds athome.J44.9 Chronic obstructive pulmonary disease, [id number] Body mass index (BMI) 39.0-39.9, adult
[2018-01-20] MEDS ORDERED: NS 0.9% 1000 ML* 1,000 ML IV ONE (11:58)
[2018-01-20] MEDS ORDERED: methylPREDNISolone 125 MG* 2 ML VIAL IV ONE (12:00)
--- NOTE | 2018-01-20 12:01 | ED ---
Shortness of Breath - HPI Summary HPI Summary: This is scribe [place] documenting for attending Igor Malone MD, . This patient is a 72 year old F presenting to [facility] with a chief complaint of SOB. Patient reports productive cough, chest heaviness (4/10 or 5/10 in severity ), and lightheadedness. Patient denies CP, nausea, vomiting, and swelling in legs. She was treated 3 weeks ago and diagnosed with bronchitis. She was started on Levaquin and Prednisone. I, Dr. Malone, personally performed the services described in this documentation as scribed in my presence, and it is both accurate and complete. - History of Current Complaint Chief Complaint: EDShortnessOfBreath Time Seen by Provider: 01/20/18 11:46 Hx Obtained From: Patient Associated Signs & Symptoms: Cough (Productive), Chest Pain Unrelated to Cough - Chest heaviness (4/10 or 5/10 in severity). Denies CP., Calf Pain/Swelling - Denies swelling in legs - Allergy/Home Medications Allergies/Adverse Reactions: Allergies Allergy/AdvReac Type Severity Reaction Status Date / Time cefaclor Allergy Severe Hives Verified 12/29/17 18:28 PMH/Surg Hx/FS Hx/Imm Hx Endocrine/Hematology History: Denies: Hx Diabetes, Hx Thyroid Disease Cardiovascular History: Denies: Hx Hypertension, Hx Pacemaker/ICD Respiratory History: Reports: Hx Asthma, Hx Chronic Obstructive Pulmonary Disease (COPD) GI History: Denies: Hx Ulcer History: Denies: Hx Renal Disease Musculoskeletal History: Denies: Hx Osteoporosis Sensory History: Reports: Hx Contacts or Glasses Denies: Hx Hearing Aid Opthamlomology History: Reports: Hx Contacts or Glasses Psychiatric History: Denies: Hx Panic Disorder - Cancer History Hx Chemotherapy: No Hx Radiation Therapy: No - Surgical History Surgery Procedure, Year, and Place: CHOLECYSTECTOMY, X3. bx left samaritan artery WITH CLIP Infectious Disease History: No Infectious Disease History: Denies: Hx Clostridium Difficile, Hx Hepatitis, Hx Human Immunodeficiency Virus (HIV), Hx of Known/Suspected MRSA, Hx Shingles, Hx Tuberculosis, Hx Known/ Suspected VRE, Hx Known/Suspected VRSA, History Other Infectious Disease, Traveled Outside the [place] in Last 30 Days - Family History Known Family History: Positive: Diabetes - Father and brother Negative: Cardiac Disease, Hypertension - Social History Occupation: Retired Lives: With Family Alcohol Use: None Substance Use Type: Reports: None Smoking Status (MU): Former Smoker Type: Cigarettes Amount Used/How Often: 1 ppd Length of Time of Smoking/Using Tobacco: 45 yrs Have You Smoked in the Last Year: No Review of Systems Positive: Other - Lightheadedness Positive: Other - Chest heaviness (4/10 or 5/10 in severity). Negative: Chest Pain Positive: Shortness Of Breath, Cough - Productive cough Negative: Vomiting, Nausea Negative: Edema - Denies swelling in legs All Other Systems Reviewed And Are Negative: Yes Physical Exam - Summary Physical Exam Summary: VITAL SIGNS: Reviewed. GENERAL: Patient is a well-developed and nourished FEMALE who is lying comfortable in the stretcher. Patient is not in any acute respiratory distress. HEAD AND FACE: No signs of trauma. No ecchymosis, hematomas or skull depressions. No sinus tenderness. EYES: PERRLA, EOMI x 2, No injected conjunctiva, no nystagmus. EARS: Hearing grossly intact. Ear canals and tympanic membranes are within normal limits. MOUTH: Oropharynx within normal limits. NECK: Supple, trachea is midline, no adenopathy, no JVD, no carotid bruit, no c- spine tenderness, neck with full ROM. CHEST: Symmetric, no tenderness at palpation LUNGS:Diffuse wheezing. No crackles. CVS: Regular rate and rhythm, S1 and S2 present, no murmurs or gallops appreciated. ABDOMEN: Soft, non-tender. No signs of distention. No rebound no guarding, and no masses palpated. Bowel sounds are normal. EXTREMITIES: FROM in all major joints, no edema, no cyanosis or clubbing. NEURO: Alert and oriented x 3. No acute neurological deficits. Speech is normal and follows commands. SKIN: Dry and warm Triage Information Reviewed: Yes Vital Signs On Initial Exam: Initial Vitals Temp Pulse Resp BP Pulse Ox 98.8 F 78 20 109/37 90 01/20/18 10:57 01/20/18 10:57 01/20/18 10:57 01/20/18 10:57 01/20/18 10:57 Vital Signs Reviewed: Yes Diagnostics - Vital Signs Vital Signs Temp Pulse Resp BP Pulse Ox 01/20/18 10:57 98.8 F 78 20 109/37 90 - Laboratory Result Diagrams: 01/20/18 12:26 01/20/18 12:26 Lab Statement: Any lab studies that have been ordered have been reviewed, and results considered in the medical decision making process. - Radiology Chest X-Ray Radiology Interpretation Completed By: Radiologist - Taken 13:27. NO ACTIVE DISEASE. ED Physician has reviewed this imaging report. - EKG No standard instances Cardiac Rate: NL - 79 BPM EKG Rhythm: Sinus Rhythm ST Segment: Normal EKG Interpretation: Taken 12:56. Normal axis, similar to EKG taken on 12/29/2017 Course/Dx - Course Assessment/Plan: This patient is a 72-year-old female who presents to the emergency department with chief complaint of having increased shortness of breath. The patient has past medical history significant for COPD and dyslipidemia. Patient reports that she is in oxygen via nasal cannula 3 L 24 hours a day. However in the last couple days the symptoms have worsened therefore today she decided to come to the medicine for further workup and management. The patient also reports that she has chest pressure. She reports it is about 4 out of 10 and is nonradiating. Denies any nausea or vomiting denies any diaphoresis. Blood test results without any significant abnormality except for carbon dioxide of 39, AST 11, CRP of 38. ABG shows a pH of 7.39, PCO2 67, PO2 79, O2 sat is 97.5 and 3 L of oxygen. Chest x-ray impression: No acute pathology. EKG shows no ST elevation. In the ED course the patient was placed and personnel monitor, IV access was obtained, and she was given Solu- Medrol and multiple DuoNebs. Since the patient is retaining CO2 I placed the patient and the BiPAP machine. Because of the patients symptoms I discussed my physical exam, findings and test results with Dr. Britton who accepted the patient for admission. This patient is feeling better and he she is hemodynamically stable. - Diagnoses Differential Diagnosis/HQI/PQRI: Positive: Asthma, Bronchitis, CHF, COPD Exacerbation, Pneumonia Provider Diagnoses: COPD exacerbation Discharge - Sign-Out/Discharge Documenting (check all that apply): Patient Departure - Admit to Yuliet Ambrocio MD - Discharge Plan Condition: Stable Disposition: ADMITTED TO [facility]
[2018-01-20] MEDS: Albuterol/Ipratropium NEB.SOL* Albuterol 2.5 MG/Ipratropium 0.5 MG 3 ML INH SCH ×5 (12:22→22:52)
[2018-01-20 12:36] LABS: ABS Basophils 0.1 10^3/ul (0-0.2); ABS Eosinophils 0.3 10^3/ul (0-0.6); ABS Lymphocytes 0.9 10^3/ul (1.0-4.8); ABS Monocytes 0.4 10^3/ul (0-0.8); ABS Neutrophils 4.1 10^3/ul (1.5-7.7); ABS Nucleated RBC 0 10^3/ul; Eosinophil % 5.7 % (0-6); Hematocrit 36 % (35-47); Mean Corpuscular HGB Conc 33 g/dl (31-36); Mean Corpuscular Hemoglobin 29 pg (27-31); Mean Corpuscular Volume 88 fL (80-97); Nucleated Red Blood Cells % 0; Platelet Count 146 10^3/ul (150-450); Red Blood Count 4.13 10^6/ul (4.00-5.40); Red Cell Distribution Width 14 % (10.5-15); White Blood Count 5.7 10^3/ul (3.5-10.8)
[2018-01-20 12:55] LABS: EGFR Non-African American 88.5 (>60)
--- NOTE | 2018-01-20 13:30 | RAD ---
INDICATION: Short of breath COMPARISON: December 29, 2017 TECHNIQUE: PA and lateral dual-energy views were obtained. FINDINGS: Bones/Soft Tissues: There are no acute bony findings. Cardiomediastinal: The cardiomediastinal silhouette is normal. Lungs: There are no infiltrates. There is minimal lingular scarring, unchanged. Pleura: There are no pleural effusions. Other: None IMPRESSION: NO ACTIVE DISEASE.
[2018-01-20] MEDS ORDERED: oxyCODONE/Acetamin 5/325 MG* TAB PO PRN (14:44)
[2018-01-20] MEDS ORDERED: Fluticasone NASAL SPRAY 50MCG* 16 gm SPRAY BTL BOTH NARES PRN (14:44)
[2018-01-20] MEDS: DOXYcycline CAP(*) 100 MG PO SCH (17:54)
[2018-01-20] MEDS: methylPREDNISolone 125 MG* 2 ML VIAL IV SCH (17:54)
[2018-01-20] MEDS: Albuterol HFA INHALER* 8 gm MDI INH PRN (18:56)
--- NOTE | 2018-01-20 19:14 | HP ---
CC: Dr. Dodson; Dr. Dasilva* HISTORY AND PHYSICAL: DATE OF ADMISSION: 01/20/18 PRIMARY CARE PHYSICIAN: Dr. Dodson. PLANT ASSOCIATE: Dr. Dasilva. ATTENDING PHYSICIAN: Dr. Avendano* (dictation provided by Melvi Forbes NP). CHIEF COMPLAINT: Shortness of breath and cough. HISTORY OF PRESENT ILLNESS: Ms. Hernandez is a 72-year-old female with a past medical history of COPD and chronic hypoxic respiratory failure on 3L NC with obstructive sleep apnea on home CPAP who presents to the hospital today with concern for shortness of breath. Ms. Hernandez states that she has been feeling unwell for at least the past 3 weeks. For at least a couple of months (per notes from Dr. Dasilva), she has felt very limited by her shortness of breath and cough with the chronic COPD. Three weeks ago, she was seen in our emergency room and at that time, she had a chest x- ray that did not show a infiltrate or concern for pneumonia. She was discharged with prednisone taper. She followed up with Dr. Santoyo 3 days later. At that time, she still continued to feel quite poorly. The prednisone taper was extended. The patient completed the taper 2 days ago. She states that she has never really felt much better all during this period of time. She has a nonproductive cough. She is very dyspneic with exertion. She states normally, she would be able to walk up a short flight of stairs if she rested at the top, but now she cannot walk more than 2 stairs without becoming extremely winded. She is continued on her home 3 L of oxygen and use of her nebulizers but has shown no improvement. In the emergency room, Ms. Hernandez had a chest x-ray, which showed no acute process. She had labs, which showed no leukocytosis. She does have retained CO2 on ABG with a level of 67, but her pH is normal at 7.39, so it is a compensated respiratory acidosis. Her CRP is 38.03. She is satting 95% on 3 L at rest, but she does appear short of breath with even talking short sentences. PAST MEDICAL/SURGICAL HISTORY: 1. COPD, on 3 L nasal cannula with chronic hypoxic respiratory failure. 2. Anxiety. 3. Hyperlipidemia. 4. GERD. 5. Obstructive sleep apnea with CPAP. 6. History of cholecystectomy. 7. History of x3. MEDICATIONS: 1. Ipratropium 0.5 mg inhaled q.6 hours p.r.n. 2. Simvastatin 40 mg p.o. at bedtime. 3. Anoro 62.5/25 one inhalation p.o. daily. 4. PreserVision AREDS soft gel 2 caps p.o. daily. 5. Albuterol inhaler 2 puffs inhaled q.6 hours p.r.n. 6. Aspirin 81 mg p.o. daily. 7. Cholecalciferol 2000 units p.o. daily. 8. Escitalopram 10 mg p.o. daily. 9. Fluticasone nasal spray 2 sprays both nares daily p.r.n. 10. Oxycodone and acetaminophen 5/325 one tab p.o. q.6 hours p.r.n. ALLERGIES: To CEFACLOR. FAMILY HISTORY: The patient's mother had seizure disorder and brother had diabetes. SOCIAL HISTORY: The patient is former smoker. She quit a few years ago, has 37 - year history of smoking. She drinks wine very occasionally. No prior drug use. She states her , Gunnar will be her healthcare proxy. REVIEW OF SYSTEMS: A 14-point review of systems was completed with Ms. Hernandez and all those not mentioned above were negative. She does specifically deny fever. PHYSICAL EXAMINATION GENERAL: Ms. Hernandez is a 72-year-old female, sitting in the bed. She is in no acute distress, though she does appears short of breath and wheezy. VITAL SIGNS: Temperature 98.8, pulse rate 79, respiratory rate 20, O2 saturation 95% on 3 L nasal canula, and blood pressure 125/58. LUNGS: Diminished with musical expiratory wheezes bilaterally. HEART: S1 and S2. No murmur, rub, or gallop and regular. ABDOMEN: Soft and nontender with bowel sounds positive x4. EXTREMITIES: No cyanosis or edema. NEURO: She is alert, she is oriented x3. She moves all extremities equally. There is no facial asymmetry or focal weakness. Extraocular movements are intact. SKIN: Intact. DIAGNOSTIC STUDIES/LAB DATA: Sodium 142, potassium 4.2, chloride 100, serum bicarbonate 39, BUN 14, creatinine 0.66, glucose 99, lactic acid 1.0. CRP 38.03. Troponin 0.00. WBC 5.7, hemoglobin 12.0, hematocrit 36, platelet count 146. D- dimer is 307. ABG shows pH of 7.39, PCO2 67, PO2 79, and bicarbonate 34.9. Chest x-ray shows "no active disease." ASSESSMENT AND PLAN: Ms. Hernandez is a 72-year-old female with a past medical history of chronic obstructive pulmonary disease with chronic hypoxic respiratory failure, on 3 L nasal canula at home, who presents today to the hospital after 3 weeks of worsening symptoms of shortness of breath and cough. Plans are for observation in the hospital for the followin. Chronic obstructive pulmonary disease exacerbation. I am concerned that despite treatment with outpatient prednisone, the patient has not improved and therefore she warrants observation in the hospital. The patient is maintaining on SpO2 > 90%t her home with 3 L at rest, but I note that she becomes very dyspneic with exertion, this is even notable when speaking with her while at rest. Plans are to treat with high-dose Solu-Medrol, Duo nebulizers q.4 hours and doxycycline for coverage of atypical pneumonia. Chest x-ray is clear. 2. Obstructive sleep apnea. Continue CPAP. 3. Chronic pain. Continue oxycodone p.r.n. 4. Hyperlipidemia. Continue simvastatin. 5. Anxiety and depression. Continue Lexapro. 6. Code status. Full code. The patient would accept intubation if necessary. 7. Disposition. To medical floor. TIME SPENT: Approximately 60 minutes was spent on the admission of this patient , more than half the time spent with the patient at the bedside reviewing the events leading up to this hospitalization, performing the physical examination, and reviewing my plan of care. MELVI FORBES, MICHAEL [id number]/[facility] #: [id number] HARJEET
[2018-01-21] MEDS: methylPREDNISolone 125 MG* 2 ML VIAL IV SCH ×3 (02:04→17:43)
[2018-01-21] MEDS: Albuterol/Ipratropium NEB.SOL* Albuterol 2.5 MG/Ipratropium 0.5 MG 3 ML INH SCH ×6 (03:09→22:24)
[2018-01-21] MEDS: DOXYcycline CAP(*) 100 MG PO SCH ×2 (03:45→15:17)
[2018-01-21] MEDS: Aspirin 81 mg CHEW TAB* 81 MG TAB.CHEW PO SCH (09:01)
[2018-01-21] MEDS: CMC: Escitalopram (NF) 10 MG TAB PO SCH (09:01)
[2018-01-21] MEDS: Cholecalciferol TAB* 1000 UNITS PO SCH (09:01)
[2018-01-21] MEDS: Albuterol HFA INHALER* 8 gm MDI INH PRN ×2 (09:20→16:43)
[2018-01-21] MEDS: PTO: Umeclidin/Vilant 62.5 MDI 62.5/25 mcg 14 INH ELLIPTA DEVICE INH SCH (10:12)
--- NOTE | 2018-01-21 12:23 | PN ---
Subjective Date of Service: 01/21/18 Interval History: HOSPITALIST PROGRESS NOTE Patient seen and examined at bedside. Care reviewed and d/w RN. She feels a little better today, but still very dyspneic with exertion. Moist cough, but unable to expectorate. States she's been trying to see Dr. Dasilva as outpatient to talk about lung transplant, but was only able to schedule an appointment for March. Family History: Unchanged from Admission Social History: Unchanged from Admission Past Medical History: Unchanged from Admission Objective Active Medications: Albuterol (Ventolin Hfa Inhaler*) 2 puff INH Q6H PRN PRN Reason: SHORTNESS OF BREATH Last Admin: 01/21/18 09:20 Dose: 2 puff Albuterol/Ipratropium (Duoneb (Albuterol 2.5 Mg/Ipratropium 0.5 Mg)) 1 neb INH Q4H [facility] Last Admin: 01/21/18 11:35 Dose: 1 neb Aspirin (Aspirin 81 Mg Chew Tab*) 81 mg PO DAILY [facility] Last Admin: 01/21/18 09:01 Dose: 81 mg Cholecalciferol (Vitamin D Tab*) 2,000 units PO DAILY [facility] Last Admin: 01/21/18 09:01 Dose: 2,000 units Doxycycline Hyclate (Vibramycin Cap(*)) 100 mg PO Q12H [facility] Last Admin: 01/21/18 03:45 Dose: 100 mg Escitalopram Oxalate (Lexapro (Nf)) 10 mg PO DAILY [facility] Last Admin: 01/21/18 09:01 Dose: 10 mg Fluticasone Propionate (Flonase Nasal Heppner 50mcg*) 2 spray BOTH NARES DAILY PRN PRN Reason: CONGESTION Methylprednisolone Sodium Succinate (Solu-Medrol 125mg *) 60 mg IV Q8H [facility] Last Admin: 01/21/18 10:12 Dose: 60 mg Oxycodone/Acetaminophen (Percocet 5/325 Tab*) 1 tab PO Q6H PRN PRN Reason: PAIN Umeclidinium/Vilanterol (Anoro 62.5/25 Ellipta Device (Nf)) 1 inh INH DAILY [facility] Last Admin: 01/21/18 10:12 Dose: 1 inh Vital Signs - 8 hr 01/21/18 01/21/18 01/21/18 07:03 07:29 07:49 Temperature 97.8 F Pulse Rate 68 68 Respiratory 15 24 24 Rate Blood Pressure 139/52 (mmHg) O2 Sat by Pulse 98 95 Oximetry 01/21/18 01/21/18 11:36 11:39 Temperature 97.9 F Pulse Rate 66 80 Respiratory 15 24 Rate Blood Pressure 152/43 (mmHg) O2 Sat by Pulse 93 95 Oximetry Oxygen Devices in Use Now: Nasal Cannula Appearance: Pleasant obese elderly lady sitting up in bed in NAD. Eyes: No Scleral Icterus Ears/Nose/Mouth/Throat: Mucous Membranes Moist Neck: Trachea Midline Respiratory: Symmetrical Chest Expansion and Respiratory Effort, - - BS+ bilaterally diminished with no added sounds Cardiovascular: RRR - Normal S1 and S2 Neurological: Alert and Oriented x 3, NL Muscle Strength and Tone Result Diagrams: 01/20/18 12:26 01/20/18 12:26 Assess/Plan/Problems-Billing Assessment: Mrs Hernandez is a 72yo F with PMH of COPD on 3 liters O2 continuously, anxiety , hyperlipidemia, GERD, JESE with CPAP, morbid obesity with BMI 43, who presented to ED with c/o dyspnea, found to have COPD exacerbation secondary to bronchitis. - Patient Problems (1) COPD exacerbation Comment: - Failed treatment with prednisone only as outpatient. - She feels a little better today, but seems to have very poor respiratory reserve at baseline. She has chronic hypercapnic respiratory failure (ABG showed CO2 with pH). Requested Pulm consultation as she may qualify for BiPAP, and is also interested in lung transplant. - Continue doxycycline, bronchodilators, and steroids. - Continue supplemental O2. (2) JESE on CPAP Comment: - Will continue to use her own CPAP. (3) HLD (hyperlipidemia) Comment: - Continue simvastatin. (4) Anxiety and depression Comment: - Continue Lexapro. (5) DVT prophylaxis Comment: - SQ heparin. (6) Full code status Status and Disposition: Inpatient.
[2018-01-21] MEDS: Heparin VIAL(*) 5000 UNITS/ML VIAL (FIVE THOUSAND) SUBCUT SCH ×2 (15:18→22:14)
--- NOTE | 2018-01-21 18:07 | CONS ---
PULMONARY CONSULTATION REPORT: DATE OF CONSULT: 01/21/18 CONSULTATION REQUESTED BY: Dr. Avendano. REASON FOR CONSULT: Evaluation of shortness of breath. HISTORY OF PRESENT ILLNESS: The patient is a 72-year-old female, former smoker , with history of severe COPD; chronic hypoxemia, on 3 L oxygen; obstructive sleep apnea, on CPAP, known to me from prior outpatient evaluation. The patient has been having significant shortness of breath over the past few months. The patient was recently evaluated in the emergency room for shortness of breath that has been worsening, was diagnosed with bronchitis and was given antibiotics and prednisone. The patient reports no change in symptoms since that time. Her shortness of breath continues to be significant even with minimal exertion. She has seen her primary care physician 3 days ago. Her prednisone course was extended, which she tapered off 2 days ago. Her symptoms did not improve and she decided to come into the emergency room for further evaluation. The patient denies significant cough or sputum production. The patient had not been able to exercise at all due to the shortness of breath. Reports limitation with minimal activity. She has been compliant with inhalers and nebulizers as prescribed with no significant change in her symptoms. The patient denies chest pain, palpitations, dizziness, loss of weight, or appetite. Further evaluation in the emergency room included chest x-ray and blood gas analysis. The patient did not have evidence of parenchymal opacities on chest x - ray. I have personally reviewed the images. Blood gas analysis revealed evidence of compensated respiratory acidosis with pCO2 of 67, pH of 7.39. She has had O2 sats around 95% on 3 L. The patient was seen and examined at bedside this afternoon. The patient reports no change in her symptoms. She also reports frustration with her breathing not being improving. She was recently referred for possible lung transplant evaluation, had preliminary evaluation. PAST MEDICAL HISTORY: 1. COPD, on 3 L. 2. Anxiety. 3. Hyperlipidemia. 4. GERD. 5. Obstructive sleep apnea, on CPAP. PAST SURGICAL HISTORY: 1. Cholecystectomy. 2. x3. MEDICATIONS: 1. Ipratropium. 2. Simvastatin. 3. Anoro. 4. PreserVision. 5. Albuterol. 6. Aspirin. 7. Cholecalciferol. 8. Escitalopram. 9. Fluticasone. 10. Oxycodone. ALLERGIES: CEFACLOR. FAMILY HISTORY: Seizure disorder in mother and diabetes in brother. SOCIAL HISTORY: Former smoker, quit few years ago, with 37 years of smoking. Drinks wine occasionally. No drug abuse. Her is healthcare proxy, who is at bedside today. REVIEW OF SYSTEMS: A 14-point review of systems was completed with the patient , as mentioned above in HPI. PHYSICAL EXAM: The patient is lying in bed, in no apparent distress, she is morbidly obese. Vital Signs: Temperature 97.5, pulse 78 beats per minute, respiratory rate 18 per minute, O2 sat 97% on 3 L, blood pressure 152/43. HEENT : Pupils equal, reactive to light. Mucous membranes moist. No JVD. No scleral icterus. Lungs: Diminished air entry bilaterally, scattered wheeze present. Cardiovascular: S1, S2 present, regular. No murmurs, gallops, or rubs noted. Abdomen: Soft, nontender, nondistended. Bowel sounds present. Extremities: Normal range of motion. No edema or cyanosis. Skin: No rash or bruises. Neurological: No focal deficits. Alert, awake, oriented x3. DIAGNOSTIC STUDIES/LAB DATA: WBC count 5.7, hemoglobin 12, hematocrit 36, platelet count 146. Blood gas analysis shows pH of 7.39, pCO2 67, pO2 79, O2 sat 97% with bicarb of 34. Sodium 142, potassium 4.2, chloride 100, bicarb 39, BUN 14, creatinine 0.6, glucose 99, lactic acid 1.0. CRP 38. BNP 16. Chest x-ray as described above in HPI. IMPRESSION AND RECOMMENDATIONS: 72-year-old morbidly obese female with history of significant chronic obstructive pulmonary disease with significant dyspnea on exertion, which has been gradually worsening recently. The patient was tried on different inhalers, nebulizers with no change in her symptoms. She reports minimal exercise tolerance, continues to gain weight with worsening shortness of breath. CT chest in October 2017, showed mild diffuse centrilobular emphysematous changes with no suspicious nodules or masses. No endobronchial lesions or mediastinal adenopathy was noted. She also had CTA in the past, which did not reveal any pulmonary embolism. Her PFTs in 2016 showed evidence of severe chronic obstructive pulmonary disease with FEV1 of 34% predicted, absolute value of 0.66 L with evidence of air trapping and diffusion capacity that was severely decreased, corrected to mildly decreased when adjusted for alveolar ventilation. She did not have any reversibility to bronchodilators. The patient also has history of sleep apnea and has been on CPAP. The patient reports issues with nasal stuffiness and congestion and was not able to be compliant with her CPAP recently. She has been on maximal therapy for chronic obstructive pulmonary disease with worsening symptoms. Given severe chronic obstructive pulmonary disease, she will benefit from transplant evaluation. The patient and her were provided with all the information required for transplant referral. She is to get required pre-transplant testing done. The patient understands that her BMI should be less than 30 to be evaluated for transplantation. I agree with current management for acute chronic obstructive pulmonary disease exacerbation. Would start tapering the steroids as she is not wheezing significantly. Continue with bronchodilators. Thank you for allowing me to participate in the care of the patient. Will follow up with you. [id number]/[facility] #: [id number] HARJEET
[2018-01-21] MEDS: Atorvastatin* 20 MG TAB PO SCH (22:14)
[2018-01-22] MEDS: methylPREDNISolone 125 MG* 2 ML VIAL IV SCH ×3 (02:07→21:28)
[2018-01-22] MEDS: Albuterol/Ipratropium NEB.SOL* Albuterol 2.5 MG/Ipratropium 0.5 MG 3 ML INH SCH ×7 (03:30→23:01)
[2018-01-22] MEDS: DOXYcycline CAP(*) 100 MG PO SCH ×2 (03:30→14:45)
[2018-01-22 05:02] LABS: ABS Basophils 0 10^3/ul (0-0.2); ABS Eosinophils 0 10^3/ul (0-0.6); ABS Lymphocytes 0.6 10^3/ul (1.0-4.8); ABS Monocytes 0.3 10^3/ul (0-0.8); ABS Neutrophils 10.6 10^3/ul (1.5-7.7); ABS Nucleated RBC 0 10^3/ul; Eosinophil % 0 % (0-6); Hematocrit 36 % (35-47); Hemoglobin 11.7 g/dl (12.0-16.0); Lymphocyte % 5.3 % (25-47); Mean Corpuscular HGB Conc 33 g/dl (31-36); Mean Corpuscular Hemoglobin 29 pg (27-31); Mean Corpuscular Volume 88 fL (80-97); Mean Platelet Volume 7.5 um3 (7.4-10.4); Nucleated Red Blood Cells % 0; Platelet Count 159 10^3/ul (150-450); Red Blood Count 4.08 10^6/ul (4.00-5.40); Red Cell Distribution Width 14 % (10.5-15); White Blood Count 11.5 10^3/ul (3.5-10.8)
[2018-01-22] MEDS: Heparin VIAL(*) 5000 UNITS/ML VIAL (FIVE THOUSAND) SUBCUT SCH ×3 (07:04→21:27)
[2018-01-22] MEDS: Aspirin 81 mg CHEW TAB* 81 MG TAB.CHEW PO SCH (07:40)
[2018-01-22] MEDS: PTO: Umeclidin/Vilant 62.5 MDI 62.5/25 mcg 14 INH ELLIPTA DEVICE INH SCH (07:40)
[2018-01-22] MEDS: Cholecalciferol TAB* 1000 UNITS PO SCH (07:40)
[2018-01-22] MEDS: CMC: Escitalopram (NF) 10 MG TAB PO SCH (07:41)
[2018-01-22] MEDS: Albuterol HFA INHALER* 8 gm MDI INH PRN (07:42)
--- NOTE | 2018-01-22 11:16 | RAD ---
INDICATION: COPD. Dyspnea. Chronic shortness of breath. COMPARISON: January 20, 2018 TECHNIQUE: Dual energy PA and routine lateral views of the chest were obtained. REPORT: Elevated lung volumes and both diffuse mild prominence of the interstitial markings and patchy rarefaction of the mid to upper lung zone interstitial markings. Increased linear opacities at the LEFT lung base may represent atelectasis or mild inflammatory infiltrate. No focal pulmonary lesion, pleural effusion, or pneumothorax. The heart, pulmonary vasculature, and mediastinal contours are unremarkable. IMPRESSION: #. New compared with January 20, 2018 mild LEFT basilar atelectasis versus pneumonia. #. Stigmata of obstructive lung disease.
--- NOTE | 2018-01-22 11:24 | RAD ---
INDICATION: COPD, dyspnea evaluate for pulmonary embolism. Comparison: Comparison is made with a prior chest x-ray study from January 22, 2018. Technique: The patient was given 9.5 mCi of xenon-133 via a rebreathing mask. The lungs were imaged in both the anterior and posterior projections. Subsequently, the patient received 6.3 mCi of technetium 99 MAA intravenously and the lungs were imaged in 8 projections. FINDINGS: There are several small ventilation/perfusion defects present posteriorly in both lower lobes and at the anterior left lung base. These appear matched in location and are similar in size to slightly more prominent on the ventilation images. There is delayed retention of xenon radiopharmaceutical in both lung bases most consistent with COPD. The chest x-ray exam demonstrates findings consistent with COPD. There are bibasilar mainly linear infiltrates most consistent with atelectasis. No pleural effusion is seen. IMPRESSION: LOW PROBABILITY FOR PULMONARY EMBOLISM.
--- NOTE | 2018-01-22 15:01 | PN ---
Subjective Date of Service: 01/22/18 Interval History: HOSPITALIST PROGRESS NOTE Patient seen and examined at bedside. Care reviewed and d/w Km Seth RN. She offers no new complaints at this time, exertional dyspnea is unchanged. Family History: Unchanged from Admission Social History: Unchanged from Admission Past Medical History: Unchanged from Admission Objective Active Medications: Albuterol (Ventolin Hfa Inhaler*) 2 puff INH Q6H PRN PRN Reason: SHORTNESS OF BREATH Last Admin: 01/22/18 07:42 Dose: 2 puff Albuterol/Ipratropium (Duoneb (Albuterol 2.5 Mg/Ipratropium 0.5 Mg)) 1 neb INH Q4H [facility] Last Admin: 01/22/18 14:45 Dose: 1 neb Aspirin (Aspirin 81 Mg Chew Tab*) 81 mg PO DAILY [facility] Last Admin: 01/22/18 07:40 Dose: 81 mg Atorvastatin Calcium (Lipitor*) 20 mg PO BEDTIME AP[facility] Last Admin: 01/21/18 22:14 Dose: 20 mg Cholecalciferol (Vitamin D Tab*) 2,000 units PO DAILY [facility] Last Admin: 01/22/18 07:40 Dose: 2,000 units Doxycycline Hyclate (Vibramycin Cap(*)) 100 mg PO Q12H [facility] Last Admin: 01/22/18 14:45 Dose: 100 mg Escitalopram Oxalate (Lexapro (Nf)) 10 mg PO DAILY [facility] Last Admin: 01/22/18 07:41 Dose: 10 mg Fluticasone Propionate (Flonase Nasal [place] 50mcg*) 2 spray BOTH NARES DAILY PRN PRN Reason: CONGESTION Heparin Sodium (Porcine) (Heparin Vial(*)) 5,000 units SUBCUT Q8HR [facility] Last Admin: 01/22/18 14:15 Dose: 5,000 units Methylprednisolone Sodium Succinate (Solu-Medrol 125mg *) 60 mg IV Q12H [facility] Last Admin: 01/22/18 07:40 Dose: 60 mg Oxycodone/Acetaminophen (Percocet 5/325 Tab*) 1 tab PO Q6H PRN PRN Reason: PAIN Umeclidinium/Vilanterol (Anoro 62.5/25 Ellipta Device (Nf)) 1 inh INH DAILY [facility] Last Admin: 01/22/18 07:40 Dose: 1 inh Vital Signs - 8 hr 08/15/18 08/15/18 08/15/18 07:40 07:47 11:09 Temperature 98.3 F Pulse Rate 64 60 Respiratory 16 16 14 Rate Blood Pressure 154/60 (mmHg) O2 Sat by Pulse 96 94 Oximetry 01/22/18 11:44 Temperature 97.8 F Pulse Rate 51 Respiratory 16 Rate Blood Pressure 142/55 (mmHg) O2 Sat by Pulse 98 Oximetry Oxygen Devices in Use Now: Nasal Cannula Appearance: Morbid obese lady sitting up in bed in NAD. Eyes: No Scleral Icterus Ears/Nose/Mouth/Throat: Mucous Membranes Moist Neck: Trachea Midline Respiratory: Symmetrical Chest Expansion and Respiratory Effort, - - BS+ bilaterally diminished with no added sounds Cardiovascular: RRR - Normal S1 and S2 Neurological: Alert and Oriented x 3, NL Muscle Strength and Tone Result Diagrams: 01/22/18 04:45 01/22/18 04:45 Assess/Plan/Problems-Billing Assessment: Mrs Hernandez is a 72yo F with PMH of COPD on 3 liters O2 continuously, anxiety , hyperlipidemia, GERD, JESE with CPAP, morbid obesity with BMI 43, who presented to ED with c/o dyspnea, found to have COPD exacerbation secondary to bronchitis. - Patient Problems (1) COPD exacerbation Comment: - Failed treatment with prednisone only as outpatient. - She feels a little better today, but seems to have very poor respiratory reserve at baseline. - Pulmonary consult appreciated. - Continue doxycycline, bronchodilators, and steroids. - Continue supplemental O2. (2) JESE on CPAP Comment: - Will continue to use her own CPAP. (3) HLD (hyperlipidemia) Comment: - Continue simvastatin. (4) Anxiety and depression Comment: - Continue Lexapro. (5) DVT prophylaxis Comment: - SQ heparin. (6) Full code status Status and Disposition: Inpatient. Anticipate D/c in AM.
[2018-01-22] MEDS: Atorvastatin* 20 MG TAB PO SCH (21:28)
[2018-01-23] MEDS: DOXYcycline CAP(*) 100 MG PO SCH (03:04)
[2018-01-23] MEDS: Heparin VIAL(*) 5000 UNITS/ML VIAL (FIVE THOUSAND) SUBCUT SCH (05:40)
[2018-01-23] MEDS: Albuterol/Ipratropium NEB.SOL* Albuterol 2.5 MG/Ipratropium 0.5 MG 3 ML INH SCH ×2 (06:59→07:47)
[2018-01-23] MEDS: CMC: Escitalopram (NF) 10 MG TAB PO SCH (07:47)
[2018-01-23] MEDS: PTO: Umeclidin/Vilant 62.5 MDI 62.5/25 mcg 14 INH ELLIPTA DEVICE INH SCH (07:47)
[2018-01-23] MEDS: Aspirin 81 mg CHEW TAB* 81 MG TAB.CHEW PO SCH (07:47)
[2018-01-23] MEDS: methylPREDNISolone 125 MG* 2 ML VIAL IV SCH (07:47)
[2018-01-23] MEDS: Cholecalciferol TAB* 1000 UNITS PO SCH (07:47)
[2018-01-23 08:06] LABS: Urine Appearance Clear; Urine Blood 1+ (Negative); Urine Color Yellow; Urine Ketones Negative (Negative); Urine Protein Negative (Negative); Urine Red Blood Cell Trace(0-2/hpf) (Absent); Urine Specific Gravity 1.015 (1.010-1.030); Urine Urobilinogen Negative (Negative); Urine White Blood Cell Trace(0-5/hpf) (Absent)
[2018-01-23 09:24] VITALS: BP 149/46
--- NOTE | 2018-01-25 00:17 | DS ---
CC: Dr. Tesha Pineda; Dr. Dasilva. DISCHARGE SUMMARY: DATE OF ADMISSION: 01/22/18 DATE OF DISCHARGE: 01/23/18 PRIMARY CARE PROVIDER: Dr. Tesha Pineda. MANAGEMENT AIDE: Dr. Dasilva. DISCHARGE DIAGNOSIS: Acute chronic obstructive pulmonary disease exacerbation. SECONDARY DIAGNOSES: 1. Chronic obstructive pulmonary disease on 3 liters of oxygen continuously. 2. Anxiety. 3. Hyperlipidemia. 4. Gastroesophageal reflux disease. 5. Obstructive sleep apnea with CPAP. 6. Morbid obesity for BMI of 43. MEDICATION LIST: 1. Percocet 5/325 mg 1 tablet p.o. q.6 hours p.r.n. pain. 2. PreserVision AREDS 2 capsules p.o. daily. 3. Anoro 62.5/25 one inhaled p.o. daily. 4. Simvastatin 40 mg p.o. at bedtime. 5. Ipratropium 0.5 mg inhaled q.6 hours p.r.n. shortness of breath. 6. Fluticasone nasal spray 50 mcg 2 sprays to both nares daily as needed for allergy symptoms. 7. Lexapro 10 mg p.o. daily. 8. Cholecalciferol 2000 units p.o. daily. 9. Aspirin 81 mg p.o. daily. 10. Albuterol HFA 2 puffs inhaled q.6 hours p.r.n. shortness of breath. New Medications: 1. Prednisone taper as follows: 40 mg p.o. daily for 3 days, 30 mg for 3 days, 20 mg for 3 days, 10 mg for 3 days, 5 mg for 3 days, and stop. 2. Doxycycline 100 mg p.o. q.12 hours for 4 more days. HOSPITAL COURSE: Mrs. Hernandez is a 72-year-old lady with a past medical history as stated above th at presented to the emergency room with complaints of shortness of breath and cough progressively for the past 3 weeks. She had been seen in the emergency room. Her chest x-ray did not show an infiltr ate, so she was discharged on a prednisone taper. She followed up with her primary care provider and her prednisone taper was extended, but she continued to feel poorly. For more details about her pre sentation, I refer you to her history and physical. In the emergency room, the patient's chest x-ray showed no active disease. She was started on antibiotics, continued on steroids, and seen in consultation by Dr. Dasilva. IMPRESSION: The patient is a 72-year-old morbidly obese female with a history of significant chronic obstructive pulmonary disease with significant dyspnea on exertion, which has been readily worsening . The patient was tried on different inhalers, nebulizers, no changes in her symptoms. She reports minimal exercise tolerance, continues to gain weight with worsening shortness of breath. CT chest in October 2017 showed mild diffuse centrilobular eczematous changes with no suspicious nodules or masses. No endobronchial lesions or mediastinal adenopathy was noted. She also had a CTA in the past, which did not reveal any pulmonary embolism. PFTs in 2016 showed evidence of severe COPD with FEV1 of 34% predicted, absolute value of 0.66 liters with evidence of air trapping and diffusion capa city that was severely decreased, corrected to mildly decreased when adjusted for alveolar ventilatio n. She did not have reversibility to bronchodilators. The patient also has a history of sleep apnea and has been on CPAP. The patient reports issues with nasal stuffiness and congestion and was not able to be compliant with her CPAP recently. She has been on maximal therapy for COPD with worsening symptoms and given her severe disease, she wi ll benefit from transparent evaluation. Dr. Dasilva provided all information required for transplant referal and she also educated the patient that her BMI should be less than 30 to be evaluated for tra nsplantation. She agreed with the current management and recommended tapering her steroids as her wh eezing had improved. Dr. Dasilva also recommended a V/Q scan as a part of her pretransplant workup that showed low probabil ity for pulmonary embolism. The patient is likely stable for discharge at this time to follow up with Dr. Dasilva and Dr. Tesha Pineda as outpatient. PHYSICAL EXAMINATION: Vital Signs: Temperature 97.7, heart rate is 61, respiratory rate is 16, oxyg en saturation is 99% on 3 liters, blood pressure is 149/46. General: The patient is a morbidly obes e, elderly lady sitting up in bed, in no acute distress. CVS: Normal S1 and S2. Regular rate and r hythm. Chest: Breath sounds present bilaterally diminished with no added sounds. Neuro: She is tamika rt, awake, and oriented x3. Able to move all 4 extremities. DIET: Heart-healthy diet. ACTIVITY: As tolerated. DISPOSITION: To home. STATUS WHILE IN THE HOSPITAL: Inpatient. Please keep in mind this is a summarized version of this patient's hospital stay. If you need more in formation, please feel free to call me at [phone] or please obtain the full medical records. TIME SPENT: Approximately 45 minutes was spent to complete this discharge. [id number]/[facility] #: [id number]
== END 2018-01-23 10:25 | disposition home or self-care (01) | DRG 191 ==
LOC: ED 10:49 → SSU 15:11 → OBSVTOIN 01-21 12:47
PROVIDERS: ADMIT Internal Medicine; ATTEND Internal Medicine
DX: J44.1 Chronic obstructive pulmonary disease with (acute) exacerbation (principal); J96.12 Chronic respiratory failure with hypercapnia; Z68.41 Body mass index [BMI] 40.0-44.9, adult; E78.5 Hyperlipidemia, unspecified; G47.33 Obstructive sleep apnea (adult) (pediatric); F41.9 Anxiety disorder, unspecified; K21.9 Gastro-esophageal reflux disease without esophagitis; G89.29 Other chronic pain; F32.9 Major depressive disorder, single episode, unspecified; E66.01 Morbid (severe) obesity due to excess calories; Z99.81 Dependence on supplemental oxygen; Z87.891 Personal history of nicotine dependence; Z79.82 Long term (current) use of aspirin
CPT/HCPCS: 36415; 71046; 78582; 80048; 80053; 81003; 81015; 82803; 83605; 83880; 84484; 85025; 85379; 85730; 86140; 87040; 87086; 87088; 93005; 94640; 94660; 99283; A9270-GY; A9540; A9558; G0378; J1644; J2930

== ENCOUNTER 2018-02-17 16:16 | Inpatient (IN) | payer MEDICARE ==
--- NOTE | 2018-02-17 16:38 | ED ---
Respiratory - HPI Summary HPI Summary: 72 y/o female BIBA c/o increasing difficulty breathing over several days. Dyspnea at rest, aggravated with exertion also. Associated sx: productive cough with clear sputum, lightheadedness with exertion. Pt was seen last month and admitted for bronchitis, for similar symptoms. Pt on 3L O2 at home. Pt states she also gets intermittent dull MURRAY since injuring her neck; still present. - History of Current Complaint Chief Complaint: EDGeneral Stated Complaint: SOB Hx Obtained From: Patient Onset/Duration: Lasting Days, Still Present Pain Intensity: 0 Character: Cough (Productive) Sputum Color: Clear Aggravating Factor(s): Exertion Alleviating Factor(s): Nothing Associated Signs and Symptoms: SOB - Allergy/Home Medications Allergies/Adverse Reactions: Allergies Allergy/AdvReac Type Severity Reaction Status Date / Time cefaclor Allergy Severe Hives Verified 12/29/17 18:28 PMH/Surg Hx/FS Hx/Imm Hx Previously Healthy: No Endocrine/Hematology History: Denies: Hx Diabetes, Hx Thyroid Disease Cardiovascular History: Denies: Hx Hypertension, Hx Pacemaker/ICD Respiratory History: Reports: Hx Asthma, Hx Chronic Obstructive Pulmonary Disease (COPD), Other Respiratory Problems/Disorders - recent diagnosis of bronchitis, Emphysema GI History: Denies: Hx Ulcer History: Reports: Other Problems/Disorders - UTI Denies: Hx Renal Disease Musculoskeletal History: Reports: Hx Arthritis, Hx Back Problems Denies: Hx Osteoporosis Sensory History: Reports: Hx Contacts or Glasses Denies: Hx Hearing Aid Opthamlomology History: Reports: Hx Contacts or Glasses Neurological History: Reports: Hx Headaches Psychiatric History: Reports: Hx Anxiety, Hx Depression Denies: Hx Panic Disorder - Cancer History Hx Chemotherapy: No Hx Radiation Therapy: No - Surgical History Surgery Procedure, Year, and Place: CHOLECYSTECTOMY, X3. bx left amish artery WITH CLIP Hx Anesthesia Reactions: No Infectious Disease History: No Infectious Disease History: Denies: Hx Clostridium Difficile, Hx Hepatitis, Hx Human Immunodeficiency Virus (HIV), Hx of Known/Suspected MRSA, Hx Shingles, Hx Tuberculosis, Hx Known/ Suspected VRE, Hx Known/Suspected VRSA, History Other Infectious Disease, Traveled Outside the [place] in Last 30 Days - Family History Known Family History: Positive: Diabetes - Father and brother Negative: Cardiac Disease, Hypertension - Social History Alcohol Use: None Alcohol Amount: a glass a wine Hx Substance Use: No Substance Use Type: Reports: None Hx Tobacco Use: Yes Smoking Status (MU): Former Smoker Type: Cigarettes Amount Used/How Often: 1 ppd Length of Time of Smoking/Using Tobacco: 45 yrs Have You Smoked in the Last Year: No Review of Systems Negative: Fever, Chills Negative: Drainage Negative: Sore Throat Negative: Chest Pain Positive: Shortness Of Breath, Cough Negative: Abdominal Pain, Vomiting, Nausea Negative: dysuria, hematuria Negative: Myalgia, Edema Negative: Rash Neurological: Other - No dizziness. Lightheadedness with exertion Positive: Headache All Other Systems Reviewed And Are Negative: Yes Physical Exam - Summary Physical Exam Summary: Constitutional: Well-developed, Well-nourished, Alert. (-) Distressed Skin: Warm, Dry. HENT: Normocephalic; Atraumatic Eyes: Conjunctiva normal Neck: Musculoskeletal ROM normal neck. (-) JVD, (-) Stridor, (-) Tracheal deviation Cardio: Rhythm regular, rate normal, Heart sounds normal; Intact distal pulses; The pedal pulses are 2+ and symmetric. Radial pulses are 2+ and symmetric. (-) Murmur Pulmonary/Chest wall: Positive crackles in bases and diminished breath sounds. Tachypnic. (-) Respiratory distress, (-) Wheezes, (-) Rales Abd: Soft, (-) epigastric tenderness, (-) Distension, (-) Guarding, (-) Rebound Musculoskeletal: (-) Edema Lymph: (-) Cervical adenopathy Neuro: Alert, Oriented x3 Psych: Normal affect and mood. Triage Information Reviewed: Yes Vital Signs On Initial Exam: Initial Vitals Temp Pulse Resp BP Pulse Ox 97.5 F 108 24 155/85 93 02/17/18 16:26 02/17/18 16:26 02/17/18 16:26 02/17/18 16:26 02/17/18 16:26 Vital Signs Reviewed: Yes Diagnostics - Vital Signs Vital Signs Temp Pulse Resp BP Pulse Ox 02/17/18 16:26 97.5 F 108 24 155/85 93 - Laboratory Result Diagrams: 02/17/18 17:15 02/17/18 17:15 Lab Statement: Any lab studies that have been ordered have been reviewed, and results considered in the medical decision making process. - Radiology CXR Xray Interpretation: No Acute Changes - NO DEFINITE PNEUMONIA IS IDENTIFIED AT THE LEFT BASE ATELECTASIS IS NOTED. Radiology Interpretation Completed By: Radiologist - ED physician reviews and agrees - EKG 1 EKG Interpretation: 16:44 - SR @ 86 BPM. No STEMI. Re-Evaluation - Re-Evaluation 1 Re-Evaluation Time: 20:25 Change: Unchanged - Pt received 2nd breathing treatment, still feels short of breath. Pt does not feel safe going home Disposition - Course Assessment/Plan: After 2x breathing treatments, pt still feels SOB and does not feel safe going home. Spoke with Dr. Chatterjee, who accepted the pt for admission. Pt not improved despite meds and steroids, pt will continue to need IV steroids. - Diagnoses Provider Diagnoses: COPD exacerbation Discharge - Sign-Out/Discharge Documenting (check all that apply): Patient Departure - Discharge Plan Condition: Stable Disposition: ADMITTED TO [facility] - Attestation Statements Document Initiated by Scribe: Yes Documenting Scribe: Avery Delgadillo Provider For Whom Scribe is Documenting (Include Credential): Yohana Sommer MD Scribe Attestation: Avery Whitfield, scribed for Yohana Sommer MD on 02/17/18 at 2146.
[2018-02-17] MEDS ORDERED: Albuterol/Ipratropium NEB.SOL* Albuterol 2.5 MG/Ipratropium 0.5 MG 3 ML INH ONE ×2 (17:13→19:59)
[2018-02-17] MEDS ORDERED: Diazepam TAB(*) 5 MG PO ONE (17:13)
[2018-02-17] MEDS ORDERED: Ketorolac INJ* 30 MG/ML 1 ML VIAL IV PUSH ONE (17:13)
[2018-02-17] MEDS ORDERED: methylPREDNISolone 125 MG* 2 ML VIAL IV ONE (17:13)
--- NOTE | 2018-02-17 17:20 | RAD ---
Indication: Shortness of breath Single frontal view of the chest performed at 1707 hours was reviewed. Comparison is made with previous exam dated January 22, 2018. Left base atelectasis is noted. This is unchanged from previous exam. No mediastinal shift is noted. Heart is of normal size and configuration. IMPRESSION: NO DEFINITE PNEUMONIA IS IDENTIFIED AT THE LEFT BASE ATELECTASIS IS NOTED.
[2018-02-17 17:29] LABS: ABS Basophils 0 10^3/ul (0-0.2); ABS Eosinophils 0.1 10^3/ul (0-0.6); ABS Lymphocytes 0.9 10^3/ul (1.0-4.8); ABS Monocytes 0.4 10^3/ul (0-0.8); ABS Neutrophils 3.2 10^3/ul (1.5-7.7); ABS Nucleated RBC 0 10^3/ul; Eosinophil % 2.8 % (0-6); Hematocrit 39 % (35-47); Hemoglobin 12.6 g/dl (12.0-16.0); Lymphocyte % 20.2 % (25-47); Mean Corpuscular HGB Conc 33 g/dl (31-36); Mean Corpuscular Hemoglobin 29 pg (27-31); Mean Corpuscular Volume 88 fL (80-97); Mean Platelet Volume 6.8 um3 (7.4-10.4); Nucleated Red Blood Cells % 0.4; Platelet Count 233 10^3/ul (150-450); Red Cell Distribution Width 15 % (10.5-15); White Blood Count 4.7 10^3/ul (3.5-10.8)
[2018-02-17 17:45] LABS: INR 0.97 (0.77-1.02)
[2018-02-17 17:46] LABS: EGFR Non-African American 100.8 (>60)
--- OUTSIDE RECORDS SUMMARY | 2018-02-17 18:07 | XMS REPORT | Continuity of Care Document ---
:1945 External Reference #:[id number] Author Name Janice Rust O.D. Address [address] [place] [address] Care Team Providers Name Role Phone Tesha Pineda M.D. Primary Care Physician Unavailable Payers Type Date Identification Numbers Payment Provider Subscriber Policy Number: [id number] Medicare - [facility] Odalys Linda Arniekayla PayID: [id number] [address] [place] [address] Policy Number: [id number] [facility] Odalys Linda Peterliz PayID: [id number] [address] [place] [address] Advance Directives Description No Information Available Problems Date Description Provider Status Onset: Chronic bronchitis Active Onset: Body fluid retention Active Onset: Osteoarthritis Active Onset: Hypercholesterolemia Active Onset: Severe chronic obstructive pulmonary Active disease Onset: 2015 Ocular hypertension Janice Rust O.D. Active Onset: 2015 Nuclear senile cataract Janice Rust O.D. Active Onset: 2015 Retinal drusen Janice Rust O.D. 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 Active Onset: Seasonal allergy Active Onset: 05/10/2016 Combined form of senile cataract Janice Rust O.D. Active Onset: 01/07/2017 Bilateral age-related nonexudative Janice Rust O.D. Active macular degeneration Family History Date Family Member(s) Problem(s) Comments Father Glaucoma Father Diabetes Mother No Current Problems First Brother Diabetes Social History Type Date Description Comments Sex Unknown Marital Status Legal Status: Work Status Retired ETOH Use Occasionally consumes beer Tobacco Use Start: Unknown Patient has never smoked Recreational Drug Use Denies Drug Use Smoking Status Reviewed: 02/13/18 Patient has never smoked Allergies, Adverse Reactions, Alerts Date Description Reaction Status Severity Comments 03/07/2015 Ceclor Active Medications Medication Date Status Form Strength Qnty SIG Indications Ordering Provider Icaps MV 11/08 Active Tablets Janice Patel /Diana Rust O.D. Albuterol Active Nebulizer (2.5mg/3M Unknown Sulfate /0000 L) 0.083% Ventolin HFA Active Aerosol 108(90Bas Unknown /0000 e) mcg/Act Simvastatin Active Tablets 5mg Unknown /0000 Aspirin Active Tablets 81mg Unknown /0000 Vitamin D Active Capsules 2000Unit Unknown /0000 Oxycodone HCL Active Tablets 5mg Unknown /0000 Anoro Ellipta Active Aerosol 62.5-25mc Unknown /0000 g/Inh Fluticasone Active Suspension 50mcg/Act as needed [place], Propionate /0000 Tesha Armenta Cyclobenzaprine Active Tablets 10mg take 1/2 to Unknown HCL /0000 1 tablet every evening at bedtime as needed Ipratropium Active Solution 0.5-2.5(3 Unknown [place]/Albutero /0000 )mg/3ML l Sulfate Prednisone Hx Tablets 1mg Unknown / - 07/09 Meloxicam / Hx Tablets 15mg Unknown / - 10/18 Daliresp Hx Tablets 500mcg Unknown / - 07/09 Ipratropium Hx Solution 0.03% Unknown [place] /0000 - 10/08 Calcium 500/D / Hx Chewtabs 500-400mg Unknown / -Unit - 07/09 Sulfamethoxazole Hx Tablets 800-160mg [place], /Trimethoprim DS /0000 Tesha - Geovany 10/09 Oxycodone-Acetam Hx Tablets 5-325mg as needed [place], inophen /0000 Teshaher Mara Armenta 07/09 Budesonide Hx Suspension 0.25mg/2M use 1 vial Unknown /0000 L via nebulizer twice a day as needed Escitalopram Hx Tablets 10mg [place], Oxalate / Teshaher Armenta Singulair Hx Tablets 10mg Unknown /0000 - 07/09 Zyrtec Allergy Hx Capsules 10mg as needed Unknown / Azithromycin Hx Tablets 250mg take 2 Unknown /0000 tablets by - mouth on 07/09 day 1 1 tablet once daily until finish Guaifenesin ac Hx Syrup 100-10mg/ take 5 to Unknown /0000 5ML 10 - milliliters 07/09 by mouth four times a day if needed for cough Risedronate Hx Tablets 150mg Unknown Sodium /0000 - 07/09 Ciprofloxacin Hx Tablets 500mg Take 1 Unknown HCL /0000 Tablet By - Mouth Twice 07/09 Metronidazole Hx Tablets 500mg Take 1 Unknown /0000 Tablet By - Mouth Twice 07/09 /2017 Immunizations Description No Information Available Vital Signs Description No Information Available Results Description No Information Available Procedures Date Code Description Status 01/13/2018 08368 Patient No Show For Appt Completed 07/10/2017 88038 Scanning Computerized Ophthalmic Diagnostic Imag Posterior Completed Seg On 07/10/2017 01194 Est Patient Comprehensive Exam Completed 01/07/2017 25686 Scanning Computerized Opthalmic Diagnostic Posterior Seg Completed Retina 01/07/2017 67993 Visual Field Exam Extended Completed 01/07/2017 46621 Determination Of Refractive State Completed 01/07/2017 10492 Est Patient Comprehensive Exam Completed 05/10/2016 70433 Scanning Computerized Ophthalmic Diagnostic Imag Posterior Completed Seg On 05/10/2016 08990 Determination Of Refractive State Completed 05/10/2016 17533 Est Patient Comprehensive Exam Completed 05/10/2016 67439 Pachymetry Completed 11/09/2015 60956 Visual Field Exam Extended Completed 11/09/2015 30203 Est Patient Comprehensive Exam Completed 2015 85554 Est Patient Comprehensive Exam Completed 2015 08959 Scanning Computerized Ophthalmic Diagnostic Imag Posterior Completed Seg On 09/15/2014 94559 Visual Field Exam Extended Completed 09/02/2014 89652 Gonioscopy Completed 03/05/2014 58152 Scanning Computerized Ophthalmic Diagnostic Imag Posterior Completed Seg On 03/05/2014 35288 Est Patient Comprehensive Exam Completed 05/15/2013 51196 Visual Field Exam Extended Completed 05/15/2013 44111 Est Patient Intermediate Exam Completed 02/13/2013 51288 Scanning Computerized Ophthalmic Diagnostic Imag Posterior Completed Seg On 02/13/2013 03175 Est Patient Comprehensive Exam Completed 02/13/2013 84686 Pachymetry Completed 04/25/2012 10348 Determination Of Refractive State Completed 04/25/2012 54106 New Patient Comprehensive Exam Completed Encounters Type Date Location Provider Dx Diagnosis Office Visit 09/02/2014 Janice Duran 365.05 High Risk Open 10:00a , pc Jonathan Rust Angle Glaucoma 365.05 High Risk Open Angle Glaucoma Plan of Treatment 02/13/2018 - Janice Rust O.D.H40.023 Open angle with borderline findings , high risk, bilateralFollow up:6 Month Follow Up OCT ON IOP Check You can expect to have your eyes dilated at your next visit. If Dr. Rust orders any additional testing, it may require extra time. We recommend that you bring sunglasses, as dilation drops often make you light sensitive until they wear off. We always recommend you bring someone to drive you home if you are uncomfortable driving with your eyes dilated. If you have any questions before your next visit, feel free to call our office at .[phone] Nonexudative age-related macular degeneration, bilateral, early dry stageComments:continue taking the areds 2 [id number] Combined forms of age- related cataract, bilateralComments:You have been diagnosed with cataracts. If you are happy with your vision as it is now, then we willsee you at your next scheduled appointment. If you feel like your vision is getting worse before your scheduled appointment, please call Trang or Rafaela at [phone].
[2018-02-17 19:42] LABS: Urine Appearance Clear; Urine Blood Negative (Negative); Urine Color Yellow; Urine Ketones Trace (Negative); Urine Protein Negative (Negative); Urine Specific Gravity 1.013 (1.010-1.030); Urine Urobilinogen Negative (Negative)
[2018-02-17] MEDS ORDERED: Acetaminophen TAB* 325 MG PO PRN (21:02)
[2018-02-17] MEDS ORDERED: Albuterol 2.5 MG/3 ML NEB.SOL* (0.083%) INH PRN (21:02)
[2018-02-17] MEDS ORDERED: Ondansetron INJ* 2 MG/ML VIAL IV PRN (21:02)
[2018-02-17] MEDS ORDERED: Al Hydrox/Mg Hydrox/Simet LIQ* 30 ML UDC PO PRN (21:02)
[2018-02-17] MEDS ORDERED: Fluticasone NASAL SPRAY 50MCG* 16 gm SPRAY BTL BOTH NARES PRN (21:06)
[2018-02-17] MEDS ORDERED: oxyCODONE/Acetamin 5/325 MG* TAB PO PRN (21:06)
[2018-02-17] MEDS ORDERED: Albuterol/Ipratropium NEB.SOL* Albuterol 2.5 MG/Ipratropium 0.5 MG 3 ML INH PRN (21:07)
[2018-02-17] MEDS ORDERED: ALPRAZolam TAB* 0.25 MG PO PRN (21:09)
[2018-02-17] MEDS: Heparin VIAL(*) 5000 UNITS/ML VIAL (FIVE THOUSAND) SUBCUT SCH (22:56)
--- NOTE | 2018-02-17 23:20 | HP ---
CC: Dr. Tesha Pineda * HISTORY AND PHYSICAL: DATE OF ADMISSION: 02/17/18. TIME OF EVALUATION: 2100. PRIMARY CARE PHYSICIAN: Tesha Pineda MD. DEPUTY FIRE CHIEF: Katty Dasilva MD. CHIEF COMPLAINT: Shortness of breath. HISTORY OF PRESENT ILLNESS: This is a 72-year-old female with a past medical history of COPD, on 3 liters, who presented to the emergency room via EMS with worsening shortness of breath. The patient states that over the last month, her shortness of breath has gotten progressively worse. She was admitted back in January for a COPD exacerbation and was discharged on 01/24/18. She states she felt that she was better at discharge and then slowly gradually got worse, has gotten worse over the past few weeks and in the past 3 to 4 days she cannot seem to catch her breath. She is short of breath at rest. She did see her primary care doctor on 01/14/18 for an annual followup. They were planning to start her back on her anxiety medications, cholesterol medication which she has not yet started and sent her for her routine mammogram. Her primary care physician listened to her and stated she sounded clear despite the patient feeling short of breath. The patient states she has chills and cold sweats, increased cough with clear sputum, no fevers. As mentioned, she is short of breath at rest. She is having difficulty ambulating due to her dyspnea and unable to get to her car and back due to being so short of breath and then becoming very lightheaded. No nausea, vomiting, diarrhea. No abdominal pain. No constipation. No urinary symptoms. No rash. Otherwise, review of systems is negative in the emergency room. The patient had labs and imaging. She was given Solu-Medrol 25 mg, Toradol 30 mg, diazepam 2.5 mg one, DuoNeb and was referred to the hospital service for further evaluation. PAST MEDICAL HISTORY: 1. Severe COPD, on 3 liters of oxygen with chronic hypoxic respiratory failure. 2. Obstructive sleep apnea, on CPAP of 5. 3. Anxiety. 4. Hyperlipidemia. 5. GERD. 6. History of cholecystectomy. 7. History of x3. 8. Irritable bowel syndrome. MEDICATIONS: 1. Simvastatin 40 mg p.o. at bedtime. 2. Ipratropium 0.5 inhaled q. 6 hours as needed. 3. Flonase 2 sprays both nares daily as needed. 4. Lexapro 10 mg daily. 5. Vitamin D 2000 units daily. 6. Aspirin 81 mg daily. 7. Albuterol 2 puffs inhaled every 6 hours as needed. Of note, the patient does not use her spacer routinely. 8. Percocet 5/325 one tablet every 6 hours as needed. 9. PreserVision AREDS soft gel 2 caps p.o. daily. 10. Anoro 62.5/25 one inhaled p.o. daily. Also of note, the patient states she does not think that the powder is delivered to her lungs as she feels most of it just goes to her mouth because she is unable to take a deep breath. ALLERGIES: CEFACLOR, severe, develops hives. FAMILY HISTORY: Mother from the seizure and brother with diabetes. SOCIAL HISTORY: The patient lives at home with her , Gunnar, who is her healthcare proxy. She is independent of her ADLs. She states she is a walker for long distance, but she has not had the energy to take it up due to her shortness of breath. She quit smoking 8 years ago. At that time, she was 40- pack year smoking history. No alcohol use or illicit drug use. CODE STATUS: She does have a MOLST and has not completed yet. She wishes to be a DNR/DNI. We will fill out the MOLST this evening. REVIEW OF SYSTEMS: A 14-point review of systems as mentioned in the HPI, otherwise negative. PHYSICAL EXAMINATION GENERAL: Conversationally dyspneic. Otherwise, no acute distress. Her is at the bedside. VITAL SIGNS: Temp 97.5, pulse rate 77, respiratory rate 22, oxygen saturation 96% on 3 liters, blood pressure 139/72. HEENT: Head: Normocephalic. Pupils are equal and reactive, anicteric. Oropharynx: Mucous membranes are moist. No erythema or exudate. White patches. NECK: Supple. No lymphadenopathy. RESPIRATORY: Diminished breath sounds, poor aeration, prolonged expiratory phase, faint bilateral expiratory wheezing. Some moderate increased work of breathing. CARDIAC: Regular rate and rhythm. Soft systolic murmur heard throughout. ABDOMEN: Soft, nontender and nondistended. EXTREMITIES: Pedal edema noted. +1 DPs. NEUROLOGIC: Alert and oriented x3. No focal neurologic deficits. LABORATORY DATA: White count 4.7, hemoglobin 12.6, hematocrit 39, platelets 233. INR is 0.97. Sodium 142, potassium 4.3, chloride 99, bicarb 39, BUN 11, creatinine 0.59, glucose 111. Troponin is 0.01. BNP is 24. UA shows trace ketones. RADIOGRAPHIC DATA: Chest x-ray shows no definite pneumonias identified at the left base. Atelectasis is noted. EKG shows normal sinus rhythm at the rate of 86. ASSESSMENT AND PLAN: This is a 72-year-old female with a past medical history severe chronic obstructive pulmonary disease on 3 L of oxygen, presents today to emergency room with worsening shortness of breath. 1. Shortness of breath. Assessment: I suspect with the patient is with chronic obstructive pulmonary disease exacerbation likely due to progression of what appears to be endstage chronic obstructive pulmonary disease. She has seen Dr. Dasilva. She mentioned transplant with Dr. Dasilva, but now is no longer interested in pursuing this avenue though her seems reluctant to give up on this. I did discuss hospice as I am suspicious that she is likely a hospice candidate. She states she is not ready for that either. There does not appear to be any infectious etiology driving this chronic obstructive pulmonary disease exacerbation. Certainly not a bacterial etiology with no white count, no fever. Plan: We will admit her for chronic obstructive pulmonary disease exacerbation , continue on prednisone. We will start her on albuterol nebs q. 2 hours as needed and DuoNebs q. 4 as needed. She was not sure what anxiety medication was prescribed to her. We would recommend follow up on this. We will start her on Xanax every 8 hours as needed for anxiety. Check a sputum culture as well. Continue Anoro as well, although I would follow up if this is actually getting delivered to her lungs and may be an alternative inhaler per Dr. Dasilva would be indicated if her symptoms do not improve, recommend Pulmonology evaluation. 2. Chronic medical problems. Hyperlipidemia. Resume her simvastatin. 3. Obstructive sleep apnea. Resume the CPAP at bedtime. Her is going to bring it in if she is here tomorrow in the evening. 4. FEN. Regular diet. 9. DVT prophylaxis: The patient scores high risk. We will place her on heparin subcu t.i.d. 10. Code status: The patient states she would like to be DNR/DNI. We will have the MOLST form filled out this evening. PATIENT TIME: Greater than 60 minutes was spent doing history and physical, more than half the time was spent in direct patient contact. [id number]/[facility] #: [id number] MTDD
[2018-02-18] MEDS: Heparin VIAL(*) 5000 UNITS/ML VIAL (FIVE THOUSAND) SUBCUT SCH ×3 (06:13→21:57)
[2018-02-18 07:02] LABS: ABS Basophils 0 10^3/ul (0-0.2); ABS Eosinophils 0 10^3/ul (0-0.6); ABS Lymphocytes 0.5 10^3/ul (1.0-4.8); ABS Monocytes 0 10^3/ul (0-0.8); ABS Neutrophils 3.1 10^3/ul (1.5-7.7); ABS Nucleated RBC 0 10^3/ul; Eosinophil % 0 % (0-6); Hematocrit 38 % (35-47); Hemoglobin 12.4 g/dl (12.0-16.0); Lymphocyte % 14.4 % (25-47); Mean Corpuscular HGB Conc 33 g/dl (31-36); Mean Corpuscular Hemoglobin 29 pg (27-31); Mean Corpuscular Volume 88 fL (80-97); Mean Platelet Volume 7.2 um3 (7.4-10.4); Nucleated Red Blood Cells % 0.1; Platelet Count 226 10^3/ul (150-450); Red Blood Count 4.27 10^6/ul (4.00-5.40); Red Cell Distribution Width 15 % (10.5-15); White Blood Count 3.6 10^3/ul (3.5-10.8)
[2018-02-18] MEDS: Multivitamins/Minerals TAB PO SCH (08:48)
[2018-02-18] MEDS: Citalopram TAB* 20 MG PO SCH (08:50)
[2018-02-18] MEDS: Aspirin 81 mg CHEW TAB* 81 MG TAB.CHEW PO SCH (08:50)
[2018-02-18] MEDS: Cholecalciferol TAB* 1000 UNITS PO SCH (08:51)
[2018-02-18] MEDS ORDERED: Umeclidin/Vilant 62.5 MDI 62.5/25 mcg 14 INH ELLIPTA DEVICE INH SCH (09:00)
[2018-02-18] MEDS ORDERED: predniSONE TAB* 20 MG PO SCH (09:00)
--- NOTE | 2018-02-18 14:09 | PN ---
Subjective Date of Service: 02/18/18 Interval History: pt c/o SOB, appears anxious. not sure if she wants anti-anxiety medication. seen with and daughter in room Objective Active Medications: Acetaminophen (Tylenol Tab*) 650 mg PO Q4H PRN PRN Reason: FEVER/PAIN Al Hydrox/Mg Hydrox/Simethicone (Maalox Plus*) 30 ml PO Q6H PRN PRN Reason: INDIGESTION Albuterol (Ventolin 2.5 Mg/3 Ml Neb.Betty*) 2.5 mg INH Q2H PRN PRN Reason: sob/wheezing Albuterol/Ipratropium (Duoneb (Albuterol 2.5 Mg/Ipratropium 0.5 Mg)) 1 neb INH [id number] AWAKE PENDING SALE TO [facility] Alprazolam (Xanax Tab*) 0.25 mg PO Q8H PRN PRN Reason: ANXIETY Aspirin (Aspirin 81 Mg Chew Tab*) 81 mg PO DAILY [facility] TO [facility] Last Admin: 02/18/18 08:50 Dose: 81 mg Atorvastatin Calcium (Lipitor*) 20 mg PO BEDTIME PENDING S[facility] TO [facility] Cholecalciferol (Vitamin D Tab*) 2,000 units PO DAILY [facility]END[facility] TO [facility] Last Admin: 02/18/18 08:51 Dose: 2,000 units Citalopram Hydrobromide (Celexa Tab*) 20 mg PO DAILY [facility]END[facility] TO [facility] Last Admin: 02/18/18 08:50 Dose: 20 mg Fluticasone Propionate (Flonase Nasal [place] 50mcg*) 2 spray BOTH NARES DAILY PRN PRN Reason: CONGESTION Heparin Sodium (Porcine) (Heparin Vial(*)) 5,000 units SUBCUT Q8HR [facility]END[facility] TO [facility] Last Admin: 02/18/18 06:13 Dose: 5,000 units Methylprednisolone Sodium Succinate (Solu-Medrol 40 Mg) 40 mg IV Q8H [facility]END[facility] TO [facility] Multivitamins/Minerals (Theragran/Minerals Tab*) 1 tab PO DAILY [facility] Last Admin: 02/18/18 08:48 Dose: 1 tab Ondansetron HCl (Zofran Inj*) 4 mg IV Q4H PRN PRN Reason: NAUSEA/VOMITING Oxycodone/Acetaminophen (Percocet 5/325 Tab*) 1 tab PO Q6H PRN PRN Reason: PAIN Umeclidinium/Vilanterol (Anoro 62.5/25 Ellipta Device (Nf)) 1 inh INH DAILY [facility] Last Admin: 02/18/18 08:37 Dose: Not Given Vital Signs - 8 hr 02/18/18 02/18/18 02/18/18 08:00 08:05 10:00 Temperature 97.5 F Pulse Rate 69 74 Respiratory 19 19 18 Rate Blood Pressure 120/46 (mmHg) O2 Sat by Pulse 96 96 94 Oximetry Oxygen Devices in Use Now: Nasal Cannula Appearance: 72 yo f in nAD, aAOx3 Eyes: No Scleral Icterus, PERRLA Ears/Nose/Mouth/Throat: NL Teeth, Lips, Gums, Mucous Membranes Moist Neck: NL Appearance and Movements; NL JVP, Trachea Midline Respiratory: Symmetrical Chest Expansion and Respiratory Effort, - - diffuse b/ l upper and mid lung wheezes, decreased breath sounds at bases Cardiovascular: NL Sounds; No Murmurs; No JVD, RRR Abdominal: NL Sounds; No Tenderness; No Distention, No Hepatosplenomegaly Lymphatic: No Cervical Adenopathy Extremities: No Edema Skin: No Rash or Ulcers, No Nodules or Sclerosis Neurological: Alert and Oriented x 3, NL Muscle Strength and Tone Result Diagrams: 02/18/18 06:31 02/18/18 06:31 Microbiology and Other Data: Microbiology 02/17/18 17:32 Aerobic Blood Culture - Preliminary Blood Venous Anaerobic Blood Culture - Preliminary Blood MRSA/MSSA (PCR) - Final Mrsa Negative S.aureus Negative 02/17/18 17:32 Gram Stain - Final Sputum Assess/Plan/Problems-Billing Assessment: 72 yo f with h/o severe 02 dependent COPD(at 3 L) presents with exacerbation - Patient Problems (1) COPD exacerbation Comment: Cont Solu Medrol, bronchodilators. - Continue supplemental O2. -cont flutter valve -not improved since admission yet (2) Anxiety and depression Comment: - Continue Lexapro. -Xanax added prn (3) JESE on CPAP Comment: - Will continue to use her own CPAP. (4) DVT prophylaxis Comment: - SQ heparin. (5) Positive blood culture Comment: diana morgan, will await sensitivities, Pt is non toxic appearing, no need of antibiotics Status and Disposition: inpatient
[2018-02-18] MEDS: methylPREDNISolone SOD 40 MG* 1 ML VIAL IV SCH ×2 (14:28→21:58)
[2018-02-18] MEDS: PTO: Umeclidin/Vilant 62.5 MDI 62.5/25 mcg 14 INH ELLIPTA DEVICE INH SCH ×2 (15:30→16:34)
[2018-02-18] MEDS: Albuterol/Ipratropium NEB.SOL* Albuterol 2.5 MG/Ipratropium 0.5 MG 3 ML INH SCH ×3 (15:59→23:54)
[2018-02-18] MEDS: Atorvastatin* 20 MG TAB PO SCH (21:56)
[2018-02-19] MEDS: Albuterol/Ipratropium NEB.SOL* Albuterol 2.5 MG/Ipratropium 0.5 MG 3 ML INH SCH ×3 (03:15→11:27)
[2018-02-19] MEDS: Heparin VIAL(*) 5000 UNITS/ML VIAL (FIVE THOUSAND) SUBCUT SCH ×3 (06:02→21:36)
[2018-02-19] MEDS: methylPREDNISolone SOD 40 MG* 1 ML VIAL IV SCH ×2 (06:02→14:32)
[2018-02-19 07:25] LABS: ABS Basophils 0 10^3/ul (0-0.2); ABS Eosinophils 0 10^3/ul (0-0.6); ABS Lymphocytes 0.9 10^3/ul (1.0-4.8); ABS Monocytes 0.3 10^3/ul (0-0.8); ABS Neutrophils 8.7 10^3/ul (1.5-7.7); ABS Nucleated RBC 0 10^3/ul; Eosinophil % 0 % (0-6); Hematocrit 36 % (35-47); Hemoglobin 11.8 g/dl (12.0-16.0); Lymphocyte % 8.9 % (25-47); Mean Corpuscular HGB Conc 32 g/dl (31-36); Mean Corpuscular Hemoglobin 29 pg (27-31); Mean Corpuscular Volume 88 fL (80-97); Mean Platelet Volume 7.5 um3 (7.4-10.4); Nucleated Red Blood Cells % 0; Platelet Count 269 10^3/ul (150-450); Red Blood Count 4.13 10^6/ul (4.00-5.40); Red Cell Distribution Width 15 % (10.5-15); White Blood Count 9.9 10^3/ul (3.5-10.8)
[2018-02-19] MEDS: PTO: Umeclidin/Vilant 62.5 MDI 62.5/25 mcg 14 INH ELLIPTA DEVICE INH SCH (07:26)
[2018-02-19 07:36] LABS: EGFR Non-African American 102.8 (>60)
[2018-02-19] MEDS: Cholecalciferol TAB* 1000 UNITS PO SCH (09:34)
[2018-02-19] MEDS: Multivitamins/Minerals TAB PO SCH (09:35)
[2018-02-19] MEDS: Citalopram TAB* 20 MG PO SCH (09:35)
[2018-02-19] MEDS: Aspirin 81 mg CHEW TAB* 81 MG TAB.CHEW PO SCH (09:35)
--- NOTE | 2018-02-19 13:07 | PN ---
Subjective Date of Service: 02/19/18 Interval History: pt feels better , but is not ready to go home today. Spoke about PATH program referral at length. Also hospital bed will be arranged at d/c Objective Active Medications: Acetaminophen (Tylenol Tab*) 650 mg PO Q4H PRN PRN Reason: FEVER/PAIN Last Admin: 02/19/18 10:40 Dose: 650 mg Al Hydrox/Mg Hydrox/Simethicone (Maalox Plus*) 30 ml PO Q6H PRN PRN Reason: INDIGESTION Albuterol (Ventolin 2.5 Mg/3 Ml Neb.Betty*) 2.5 mg INH Q2H PRN PRN Reason: sob/wheezing Albuterol/Ipratropium (Duoneb (Albuterol 2.5 Mg/Ipratropium 0.5 Mg)) 1 neb INH [id number] AWAKE [facility] Last Admin: 02/19/18 11:27 Dose: 1 neb Alprazolam (Xanax Tab*) 0.25 mg PO Q8H PRN PRN Reason: ANXIETY Last Admin: 02/18/18 14:34 Dose: 0.25 mg Aspirin (Aspirin 81 Mg Chew Tab*) 81 mg PO DAILY [facility] Last Admin: 02/19/18 09:35 Dose: 81 mg Atorvastatin Calcium (Lipitor*) 20 mg PO BEDTIME [facility] Last Admin: 02/18/18 21:56 Dose: 20 mg Cholecalciferol (Vitamin D Tab*) 2,000 units PO DAILY [facility] Last Admin: 02/19/18 09:34 Dose: 2,000 units Citalopram Hydrobromide (Celexa Tab*) 20 mg PO DAILY [facility] Last Admin: 02/19/18 09:35 Dose: 20 mg Fluticasone Propionate (Flonase Nasal [place] 50mcg*) 2 spray BOTH NARES DAILY PRN PRN Reason: CONGESTION Heparin Sodium (Porcine) (Heparin Vial(*)) 5,000 units SUBCUT Q8HR [facility] Last Admin: 02/19/18 06:02 Dose: 5,000 units Methylprednisolone Sodium Succinate (Solu-Medrol 40 Mg) 40 mg IV Q8H [facility] Last Admin: 02/19/18 06:02 Dose: 40 mg Multivitamins/Minerals (Theragran/Minerals Tab*) 1 tab PO DAILY [facility] Last Admin: 02/19/18 09:35 Dose: 1 tab Ondansetron HCl (Zofran Inj*) 4 mg IV Q4H PRN PRN Reason: NAUSEA/VOMITING Oxycodone/Acetaminophen (Percocet 5/325 Tab*) 1 tab PO Q6H PRN PRN Reason: PAIN Umeclidinium/Vilanterol (Anoro 62.5/25 Ellipta Device (Nf)) 1 inh INH DAILY [facility] Last Admin: 02/19/18 07:26 Dose: 1 mcg Vital Signs - 8 hr 02/19/18 02/19/18 02/19/18 07:27 07:28 08:00 Temperature Pulse Rate 66 96 Respiratory 14 66 22 Rate Blood Pressure (mmHg) O2 Sat by Pulse 96 14 94 Oximetry 02/19/18 02/19/18 08:07 11:31 Temperature 98.5 F Pulse Rate 70 68 Respiratory 28 17 Rate Blood Pressure 147/54 (mmHg) O2 Sat by Pulse 94 96 Oximetry Oxygen Devices in Use Now: Nasal Cannula Appearance: 72 yo F in nAD, aAOx3 Eyes: No Scleral Icterus, PERRLA Ears/Nose/Mouth/Throat: NL Teeth, Lips, Gums, Mucous Membranes Moist Neck: NL Appearance and Movements; NL JVP, Trachea Midline Respiratory: Symmetrical Chest Expansion and Respiratory Effort, - - crackles at b/l bases, decreased breath sounds b/l Cardiovascular: NL Sounds; No Murmurs; No JVD, RRR Abdominal: NL Sounds; No Tenderness; No Distention, No Hepatosplenomegaly Lymphatic: No Cervical Adenopathy Extremities: No Clubbing, Cyanosis, - - trace ankle edema b/l Skin: No Rash or Ulcers, No Nodules or Sclerosis Neurological: Alert and Oriented x 3, NL Muscle Strength and Tone Result Diagrams: 02/19/18 06:45 02/19/18 06:45 Microbiology and Other Data: Microbiology 02/17/18 17:32 Aerobic Blood Culture - Preliminary Blood Venous Anaerobic Blood Culture - Preliminary Blood MRSA/MSSA (PCR) - Final Mrsa Negative S.aureus Negative 02/17/18 17:32 Gram Stain - Final Sputum Assess/Plan/Problems-Billing Assessment: 72 yo f with h/o severe 02 dependent COPD(at 3 L) presents with exacerbation - Patient Problems (1) COPD exacerbation Comment: Cont Solu Medrol, bronchodilators. - Continue supplemental O2. - cont flutter valve - improved since admission (2) Anxiety and depression Comment: - Continue Lexapro. -Xanax added prn (3) JESE on CPAP Comment: - Will continue to use her own CPAP. (4) Positive blood culture Comment: Staph hominis in one out of two bottles - likely contamination. Pt is non toxic appearing, no need of antibiotics (5) DVT prophylaxis Comment: - SQ heparin. Status and Disposition: inpatient
[2018-02-19] MEDS ORDERED: Albuterol HFA INHALER* 8 gm MDI INH PRN (16:16)
[2018-02-19] MEDS ORDERED: Albuterol/Ipratropium NEB.SOL* Albuterol 2.5 MG/Ipratropium 0.5 MG 3 ML INH SCH (19:00)
[2018-02-19] MEDS: Atorvastatin* 20 MG TAB PO SCH (21:36)
[2018-02-20] MEDS: methylPREDNISolone SOD 40 MG* 1 ML VIAL IV SCH (02:00)
[2018-02-20] MEDS: Heparin VIAL(*) 5000 UNITS/ML VIAL (FIVE THOUSAND) SUBCUT SCH ×2 (06:04→13:23)
[2018-02-20] MEDS: PTO: Umeclidin/Vilant 62.5 MDI 62.5/25 mcg 14 INH ELLIPTA DEVICE INH SCH (07:29)
[2018-02-20] MEDS: Multivitamins/Minerals TAB PO SCH (08:53)
[2018-02-20] MEDS: Aspirin 81 mg CHEW TAB* 81 MG TAB.CHEW PO SCH (08:53)
[2018-02-20] MEDS: Citalopram TAB* 20 MG PO SCH (08:53)
[2018-02-20] MEDS: Cholecalciferol TAB* 1000 UNITS PO SCH (08:54)
[2018-02-20] MEDS ORDERED: predniSONE TAB* 50 MG PO SCH (09:00)
[2018-02-20 11:57] VITALS: BP 137/46
--- NOTE | 2018-02-21 08:33 | DS ---
CC: Dr. Tesha Pineda; Dr. Katty Dasilva.* DISCHARGE SUMMARY: DATE OF ADMISSION: 02/17/18 DATE OF DISCHARGE: 02/20/18 PRIMARY CARE PROVIDER: Dr. Tesha Pineda MY ATTENDING WHILE IN THE HOSPITAL: Dr. Toribio Oakes.* (DICTATED BY EDGAR MOORE) TELEPHONE SURVEYOR: Dr. Katty Dasilva MD PRIMARY DISCHARGE DIAGNOSES: 1. Chronic obstructive pulmonary disease exacerbation. 2. Chronic hypoxic respiratory failure, on 3 L of oxygen. 3. Obstructive sleep apnea. SECONDARY DISCHARGE DIAGNOSES: 1. Anxiety. 2. Hyperlipidemia. 3. Gastroesophageal reflux disease. 4. Irritable bowel syndrome. STUDIES DONE WHILE IN THE HOSPITAL: Chest x-ray from 02/17/18 read as no definite pneumonia is identified into left base atelectasis noted. MEDICATIONS AT DISCHARGE: 1. Aspirin 81 mg p.o. daily. 2. Anoro Ellipta 1 inhalation p.o. daily. 3. Lexapro 10 mg p.o. daily. 4. Simvastatin 20 mg p.o. daily at bedtime. 5. Flonase 2 sprays both nares daily as needed. 6. Albuterol 2 puffs inhalation q. 6 hours as needed. 7. Vitamin D 2000 p.o. daily. 8. Ipratropium 0.5 mg inhalation q. 6 hours as needed. 9. Percocet 5/325 1 tab p.o. q. 6 hours as needed. 10. Xanax 0.25 mg p.o. q.8 hours as needed. 11. Prednisone 60 mg p.o. daily with taper. New medication at discharge: 1. Xanax. 2. Prednisone. HOSPITAL COURSE: This is a brief summary of the patient's presentation. For more details please see history and physical from Maxine Chatterjee M.D. on . In brief, the patient is a 72-year-old female with past medical history significant for the above who presents to the emergency department with worsening shortness of breath. The patient was admitted to institution and discharged on 01/24/18. The patient felt that she got better during hospitalization and got slowly worse over the past several weeks with severe shortness of breath over the 3 to 4 days before hospitalization. The patient had no sick contacts other signs of infection. The patient was short of breath and unable to ambulate to her car and prompted her to come to the emergency department. The patient in the emergency department received steroids, Toradol , diazepam, and DuoNeb. The patient was admitted to hospital and continued on scheduled DuoNeb home inhaler and IV methylprednisolone. The patient improved slightly from 02/17/18 to 02/18/18. The patient was able to wean down to her home oxygen. The patient had flutter valve and continuous supplemental oxygen. The patient had very high amount of anxiety and was started on Xanax as above. This was related to her shortness of breath. The patient had a positive blood culture for probable contaminant of Staph hominis in 1 bottle. The patient had an elevated carbon dioxide, elevated glucose. No other significant laboratory abnormalities while in the hospital. The patient improved on methylprednisolone from 02/18/18 to 02/19/18. The patient was discussed at length with the patient the PATH program and the poor prognosis she has. The patient has previously been counseled at the tentative treatment for her COPD at this point would be lung transplant, she is not interested in that and that she has a limited life expectancy. The patient states she is interested in this as well as a hospital bed, which was set up at her home. The patient is able to be weaned from IV methylprednisolone to prednisone p.o. on 02/20/18, the patient tolerated the transition well. The patient had no wheezing. The patient continued to have shortness of breath and dyspnea on exertion what she felt was her baseline before her most recent COPD exacerbation. The patient seems somewhat discouraged about her lack of progress; however, she was stable and able for discharge on 02/20/18. PHYSICAL EXAMINATION ON DAY OF DISCHARGE: General: The patient is a 72-year- old female who appears her stated age and sitting comfortably in bed, in no acute distress. Vital Signs: At the time of evaluation temperature 97.6, pulse rate 66, respiratory rate 21, oxygen saturation 94% on 3 L, blood pressure 137/46. HEENT: Head normocephalic, atraumatic. Sclerae anicteric. No conjunctival injection. Nasal mucosa and oral mucosa is moist. No pharyngeal erythema, postnasal drip, or exudate. Neck: Supple. No lymphadenopathy. No carotid bruit auscultated. Cardiac: Regular rate and rhythm. No clicks, murmurs, gallops, or rubs. Pulses 2+ in his bilateral dorsalis pedis, posterior tibialis, and radial areas. Respiratory: Diminished throughout. No wheezes, rales, or rhonchi. Abdomen: Soft, nontender, nondistended. Bowel sounds present, normoactive in all 4 quadrants. No hepatosplenomegaly. No abdominal bruits auscultated. No hepatojugular reflux. Skin: Clean, dry, and intact. No rash. Genitourinary: No suprapubic or CVA tenderness. Neuro: Cranial nerves II through XII grossly intact. No focal deficits. Alert and oriented x3. Psychiatric: Pleasant and cooperative. DISCHARGE PLAN: The patient will be discharged to home. The patient will be contacted by the PATH program and she will follow up with them about additional resources in the community she could be eligible for based on her poor prognosis. The patient will be continued on a steroid taper for 2 weeks. The patient is to follow up with primary care provider within 1 week for general medical management. The patient is to follow up with Dr. Dasilva as scheduled in early March to discuss symptomatic therapy for her COPD. The patient will be continued on supplemental oxygen at all times. The patient will be continued on Anoro Ellipta and inhalers as needed. The patient will be continued on alprazolam for anxiety. The patient should discuss with her primary care provider as well as Dr. Dasilva possibly upgrading to triple inhaler therapy given her highly symptomatic endstage COPD. The patient should engage in activity as tolerated. DIET: Heart-healthy diet without caffeine. The patient is to return to the hospital for severe shortness of breath, chest pain, passing out or alarming symptoms. TIME SPENT: Approximately 60 minutes was spent on this discharge with the patient, 30 of which spent [id number] with the patient obtaining history and physical and discussing the treatment plan. EDGAR MOORE [id number]/[facility] #: [id number] HARJEET
== END 2018-02-20 16:30 | disposition hospice, home (50) | DRG 191 ==
LOC: ED 16:16 → MED 21:42
PROVIDERS: ADMIT Pediatrics; ATTEND Internal Medicine
DX: J43.9 Emphysema, unspecified (principal); J96.11 Chronic respiratory failure with hypoxia; J98.11 Atelectasis; F41.9 Anxiety disorder, unspecified; K21.9 Gastro-esophageal reflux disease without esophagitis; M19.90 Unspecified osteoarthritis, unspecified site; F32.9 Major depressive disorder, single episode, unspecified; R73.9 Hyperglycemia, unspecified; G47.33 Obstructive sleep apnea (adult) (pediatric); E78.5 Hyperlipidemia, unspecified; K58.9 Irritable bowel syndrome, unspecified; Z90.49 Acquired absence of other specified parts of digestive tract; Z88.1 Allergy status to other antibiotic agents; Z83.3 Family history of diabetes mellitus; Z82.0 Family history of epilepsy and other diseases of the nervous system; Z87.891 Personal history of nicotine dependence; Z87.440 Personal history of urinary (tract) infections; Z72.89 Other problems related to lifestyle; Z79.82 Long term (current) use of aspirin; Z79.52 Long term (current) use of systemic steroids; Z23 Encounter for immunization; Z99.81 Dependence on supplemental oxygen
CPT/HCPCS: 36415; 71045; 80048; 80053; 81003; 83605; 83880; 84484; 85025; 85610; 85730; 87040; 87070; 87077; 87150; 87186; 87205; 90686; 93005; 94640; 94660; 99284; A9270-GY; J1644; J1885; J2920; J2930; J7512